=== PATIENT | female | born 1940 | race Caucasian/White ===

== ENCOUNTER 2017-07-10 12:48 | Observation (INO) | payer MEDICARE ==
[~2017-07-10] VITALS: Ht 162.6 cm; Wt 40.4 kg
[2017-07-10] MEDS ORDERED: NS IV 1000 ML 1,000 ML IV SCH (12:51)
[2017-07-10] MEDS ORDERED: ONDANSETRON 4 MG/2 ML (SDV) Z0FRAN IVP PRN (13:00)
[2017-07-10] MEDS ORDERED: ACETAMINOPHEN 500 MG TAB (TYLENOL) PO PRN (13:00)
[2017-07-10] MEDS ORDERED: ALPRAZolam 0.25 MG (XANAX) TAB PO PRN (13:00)
[2017-07-10] MEDS ORDERED: IBUPROFEN TABLET 200 MG TAB PO PRN (13:00)
[2017-07-10] MEDS ORDERED: RT-ALBUTEROL SULF 2.5 MG/3 ML PRE-MIX VIAL INH NR (13:00)
[2017-07-10] MEDS ORDERED: fentaNYL INJECTION 100 MCG/2 ML AMP IVP PRN (13:00)
--- OUTSIDE RECORDS SUMMARY | 2017-07-10 13:23 | XMS REPORT | Clinical Summary ---
Author Author Admin, SCOUT [facility] Address Unknown Phone Unavailable Allergies, Adverse Reactions, Alerts Allergy Name Reaction Description Start Date Severity Status Provider No Known Allergies Shahida Mares LPN Conditions or Problems Problem Name Problem Code Onset Date Status Entry Date Provider Comment Standard Description Annotate MUSCLE PAIN 729.1 Active Sherry Haq MD PhD Myalgia and myositis, unspecified Preop exam V72.84 Active Shahida Mares LPN Preoperative examination, unspecified History of myocardial infarction V12.59 Active Bridgett Guadarrama APRN Other personal history of diseases of circulatory system COPD, NOS 496 Active Bridgett Guadarrama APRN Chronic airway obstruction, not elsewhere classified Zoster conjunctivitis Active Bridgett Guadarrama APRN 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 Bridgett Guadarrama APRN Herpes zoster with other nervous system complications Other atopic dermatitis Active Bridgett Guadarrama APRN Localized swelling on foot, right 782.2 Active Akshat Nava MD Localized superficial swelling, mass, or lump Medication List Medication Instructions Start Date Stop Date Generic Name [facility] Status Provider Patient Instruction DESONIDE 0.05 % EXT LOTN one application to forehead two times daily DESONIDE 31150949625 Active Akshat Nava MD Active CALCIUM HIGH POTENCY/VITAMIN D 600-200 MG-UNIT TABS 2 daily CALCIUM CARBONATE-VITAMIN D 92079899996 No Longer Active Bridgett Guadarrama APRN Active CYCLOBENZAPRINE HCL 10 MG TABS 1/2 - 1 tablet by mouth three times daily as needed for muscle spasm/pain CYCLOBENZAPRINE HCL 36568821360 No Longer Active Bridgett Guadarrama APRN Active CYCLOBENZAPRINE HCL 10 MG TABS 1/2 - 1 tablet by mouth three times daily as needed for muscle spasm/pain CYCLOBENZAPRINE HCL 10 MG TABS 917670 CYCLOBENZAPRINE HCL Inactive CALCIUM HIGH POTENCY/VITAMIN D 600-200 MG-UNIT TABS 2 daily CALCIUM HIGH POTENCY/VITAMIN D 600-200 MG-UNIT TABS 993727 CALCIUM CARBONATE- VITAMIN D Inactive Advance Directives Directive Description Start Date PERMISSION TO SHARE Vital Signs Date Name Value Unit Range Description blood pressure, diastolic 61 mm[Hg] BP shahid blood pressure, systolic 167 mm[Hg] BP sys pulse rate E&M 64 /min Heart rate temperature E&M 97.4 [degF] Body temperature weight E&M 86.5 [lb_av] Weight Measured blood pressure, diastolic 65 mm[Hg] BP shahid blood pressure, systolic 139 mm[Hg] BP sys pulse rate E&M 89 /min Heart rate temperature E&M 97.5 [degF] Body temperature weight E&M 88.5 [lb_av] Weight Measured Encounters Code Encounter Date Provider Facility CPT-25326 Level 3 Est. Patient 13:54:25 CDT Akshat Nava MD [facility] CPT-54383 Level 4 New Patient 15:40:56 CDT Bridgett Guadarrama APRN [facility] CPT-06135 Level 2 New Patient 22:03:35 STREAMING MEDIA SPECIALIST Sherry Haq MD PhD [facility] -[facility] Procedures Code Procedure Name Date Entry Date Standard Description CPT-14890 EKG Trac and Interp - XRAY USE ONLY 12:44:15 CDT 08/07 CPT-83488 Chest 2V Frontal and Lat - XRAY USE ONLY 12:44:15 CDT
--- OUTSIDE RECORDS SUMMARY | 2017-07-10 13:23 | XMS REPORT | Clinical Summary ---
Author Author Admin, SCOUT Organization [facility] Address Unknown Phone Unavailable Allergies, Adverse Reactions, Alerts Allergy Name Reaction Description Start Date Severity Status Provider Allergies Unknown Conditions or Problems Problem Name Problem Code Onset Date Status Entry Date Provider Comment Standard Description Annotate MUSCLE PAIN 729.1 Active Sherry Haq MD PhD Myalgia and myositis, unspecified Preop exam V72.84 Active Shahida Mares LPN Preoperative examination, unspecified Medication List Medication Instructions Start Date Stop Date Generic Name [facility] Status Provider Patient Instruction CYCLOBENZAPRINE HCL 10 MG TABS 1/2 - 1 tablet by mouth three times daily as needed for muscle spasm/pain CYCLOBENZAPRINE HCL 60393178837 Active Sherry Haq MD PhD Active CALCIUM HIGH POTENCY/VITAMIN D 600-200 MG-UNIT TABS 2 daily CALCIUM CARBONATE-VITAMIN D 35273371849 Active Sherry Haq MD PhD Active Advance Directives Directive Description Start Date PERMISSION TO SHARE Encounters Code Encounter Date Provider Facility [facility]-03086 Level 2 New Patient 22:03:35 MEDICAL TRANSLATOR Sherry Haq MD PhD [facility] Procedures Code Procedure Name Date Entry Date Standard Description CPT-47710 EKG Trac and Interp - XRAY USE ONLY 12:44:15 CDT 08/07 CPT-92635 Chest 2V Frontal and Lat - XRAY USE ONLY 12:44:15 CDT
--- OUTSIDE RECORDS SUMMARY | 2017-07-10 13:23 | XMS REPORT | Clinical Summary ---
Author Author Admin, SCOUT [facility] Address Unknown Phone Unavailable Allergies, Adverse Reactions, [...] Instructions Start Date Stop Date Generic Name [facility] Status Provider Patient Instruction DESONIDE 0.05 % EXT LOTN one application to forehead two times daily DESONIDE 92986734663 Active Akshat Nava MD Active CALCIUM HIGH POTENCY/VITAMIN D 600-200 MG-UNIT TABS 2 daily CALCIUM CARBONATE-VITAMIN D 10684943528 No Longer Active Bridgett Guadarrama APRN Active CYCLOBENZAPRINE HCL 10 MG TABS 1/2 - 1 tablet by mouth three times daily as needed for muscle spasm/pain CYCLOBENZAPRINE HCL 37836791476 No Longer Active Bridgett Guadarrama APRN Active CYCLOBENZAPRINE HCL 10 MG TABS 1/2 - 1 tablet by mouth three times daily as needed for muscle spasm/pain CYCLOBENZAPRINE HCL 10 MG TABS 133979 CYCLOBENZAPRINE HCL Inactive CALCIUM HIGH POTENCY/VITAMIN D 600-200 MG-UNIT TABS 2 daily CALCIUM HIGH POTENCY/VITAMIN D 600-200 MG-UNIT TABS 144937 CALCIUM CARBONATE- VITAMIN D Inactive Advance Directives [...] Measured Encounters Code Encounter Date Provider Facility CPT-92490 Level 3 Est. Patient 13:54:25 CDT Akshat Nava MD [facility] CPT-47211 Level 4 New Patient 15:40:56 CDT Bridgett Guadarrama APRN [facility] CPT-03296 Level 2 New Patient 22:03:35 SEAM PRESS OPERATOR Sherry Haq MD PhD [facility] -[facility] Procedures Code Procedure Name Date Entry Date Standard Description CPT-14175 EKG Trac and Interp - XRAY USE ONLY 12:44:15 CDT 08/07 CPT-91090 Chest 2V Frontal and Lat - XRAY USE ONLY 12:44:15 CDT
--- OUTSIDE RECORDS SUMMARY | 2017-07-10 13:23 | XMS REPORT | Clinical Summary ---
Author Author Admin, SCOUT Organization [facility] Address Unknown Phone Unavailable Allergies, Adverse Reactions, [...] Generic Name [facility] Status Provider Patient Instruction CYCLOBENZAPRINE HCL 10 MG TABS 1/2 - 1 tablet by mouth three times daily as needed for muscle spasm/pain CYCLOBENZAPRINE HCL 60447978045 Active Sherry Haq MD PhD Active CALCIUM HIGH POTENCY/VITAMIN D 600-200 MG-UNIT TABS 2 daily CALCIUM CARBONATE-VITAMIN D 16534243088 Active Sherry Haq MD PhD Active Advance Directives Directive Description Start Date PERMISSION TO SHARE Encounters Code Encounter Date Provider Facility [facility]-05210 Level 2 New Patient 22:03:35 GROUNDWATER PROGRAMS DIRECTOR Sherry Haq MD PhD [facility] Procedures Code Procedure Name Date Entry Date Standard Description CPT-63745 EKG Trac and Interp - XRAY USE ONLY 12:44:15 CDT 08/07 CPT-45749 Chest 2V Frontal and Lat - XRAY USE ONLY 12:44:15 CDT
--- OUTSIDE RECORDS SUMMARY | 2017-07-10 13:23 | XMS REPORT | Clinical Summary ---
Author Author Admin, SCOUT Organization [facility] Address Unknown Phone Unavailable Allergies, [...] Instructions Start Date Stop Date Generic Name [facility] Status Provider Patient Instruction CYCLOBENZAPRINE HCL 10 MG TABS 1/2 - 1 tablet by mouth three times daily as needed for muscle spasm/pain CYCLOBENZAPRINE HCL 30711816638 Active Sherry Haq MD PhD Active CALCIUM HIGH POTENCY/VITAMIN D 600-200 MG-UNIT TABS 2 daily CALCIUM CARBONATE-VITAMIN D 36579129445 Active Sherry Haq MD PhD Active Advance Directives Directive Description Start Date PERMISSION TO SHARE Encounters Code Encounter Date Provider Facility [facility]-13453 Level 2 New Patient 22:03:35 FINAL INSPECTOR MOVEMENT ASSEMBLY Sherry Haq MD PhD [facility] Procedures Code Procedure Name Date Entry Date Standard Description CPT-76881 EKG Trac and Interp - XRAY USE ONLY 12:44:15 CDT 08/07 CPT-16720 Chest 2V Frontal and Lat - XRAY USE ONLY 12:44:15 CDT
--- OUTSIDE RECORDS SUMMARY | 2017-07-10 13:23 | XMS REPORT | Clinical Summary ---
Author Author Admin, SCOUT [facility] Address Unknown Phone Unavailable Allergies, Adverse Reactions, Alerts Allergy Name Reaction Description Start Date Severity Status Provider No Known Allergies Stacialison Urias RMAlison Conditions or Problems Problem Name Problem Code Onset Date Status Entry Date Provider Comment Standard Description Annotate MUSCLE PAIN 729.1 Active Sherry Haq MD PhD Myalgia and myositis, unspecified Preop exam V72.84 Active Shahida Mares TACTICAL AIR CONTROL PARTY MANAGER Preoperative examination, unspecified History of myocardial infarction V12.59 Active Bridgett Guadarrama APRN Other personal history of diseases of circulatory system COPD, NOS 496 Active Bridgett Guadarrama APRN Chronic airway obstruction, not elsewhere classified Zoster conjunctivitis Active Bridgett Guadarrama APRN 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 Bridgett Guadarrama APRN Herpes zoster with other nervous system complications Other atopic dermatitis Active Bridgett Guadarrama APRN Medication List Medication Instructions Start Date Stop Date Generic Name [facility] Status Provider Patient Instruction DESONIDE 0.05 % EXT LOTN one application to forehead two times daily DESONIDE 41354042580 Active Bridgett Guadarrama APRN Active CALCIUM HIGH POTENCY/VITAMIN D 600-200 MG-UNIT TABS 2 daily CALCIUM CARBONATE-VITAMIN D 79546017693 No Longer Active Bridgett Guadarrama APRN Active CYCLOBENZAPRINE HCL 10 MG TABS 1/2 - 1 tablet by mouth three times daily as needed for muscle spasm/pain CYCLOBENZAPRINE HCL 32709965887 No Longer Active Bridgett Guadarrama APRN Active CYCLOBENZAPRINE HCL 10 MG TABS 1/2 - 1 tablet by mouth three times daily as needed for muscle spasm/pain CYCLOBENZAPRINE HCL 10 MG TABS 044593 CYCLOBENZAPRINE HCL Inactive CALCIUM HIGH POTENCY/VITAMIN D 600-200 MG-UNIT TABS 2 daily CALCIUM HIGH POTENCY/VITAMIN D 600-200 MG-UNIT TABS 540059 CALCIUM CARBONATE- VITAMIN D Inactive Advance Directives Directive Description Start Date PERMISSION TO SHARE Vital Signs Date Name Value Unit Range Description blood pressure, diastolic - 8462-4 65 mm[Hg] BP shahid blood pressure, systolic - 8480-6 139 mm[Hg] BP sys pulse rate E&M - 8867-4 89 /min Heart rate temperature E&M 97.5 [degF] Body temperature weight E&M - 3141-9 88.5 [lb_av] Weight Measured Encounters Code Encounter Date Provider Facility CPT-49134 Level 4 New Patient 15:40:56 CDT Bridgett Guadarrama APRN [facility] CPT-65866 Level 2 New Patient 22:03:35 LAND RECLAMATION SPECIALIST Sherry Haq MD PhD [facility] -[facility] Procedures Code Procedure Name Date Entry Date Standard Description CPT-84316 EKG Trac and Interp - XRAY USE ONLY 12:44:15 CDT 08/07 CPT-02926 Chest 2V Frontal and Lat - XRAY USE ONLY 12:44:15 CDT
--- OUTSIDE RECORDS SUMMARY | 2017-07-10 13:23 | XMS REPORT | Clinical Summary ---
Author Author Admin, [facility] Organization [facility] Address Unknown Phone Unavailable Allergies, [...] Start Date Stop Date Generic Name [facility] Status Provider Patient Instruction CYCLOBENZAPRINE HCL 10 MG TABS 1/2 - 1 tablet by mouth three times daily as needed for muscle spasm/pain CYCLOBENZAPRINE HCL 04594683612 Active Sherry Haq MD PhD Active CALCIUM HIGH POTENCY/VITAMIN D 600-200 MG-UNIT TABS 2 daily CALCIUM CARBONATE-VITAMIN D 31630697390 Active Sherry Haq MD PhD Active Advance Directives Directive Description Start Date PERMISSION TO SHARE Encounters Code Encounter Date Provider Facility CPT-35767 Level 2 New Patient 22:03:35 INTERIOR DESIGN INSTRUCTOR Sherry Haq MD PhD [facility]
--- OUTSIDE RECORDS SUMMARY | 2017-07-10 13:23 | XMS REPORT | Clinical Summary ---
Author Author Admin, SCOUT [facility] Address Unknown Phone Unavailable Allergies, Adverse Reactions, Alerts Allergy Name Reaction Description Start Date Severity Status Provider No Known Allergies Staci DOVER Conditions or Problems Problem Name Problem Code Onset Date Status Entry Date Provider Comment Standard Description Annotate MUSCLE PAIN 729.1 Active Sherry Haq MD PhD Myalgia and myositis, unspecified Preop exam V72.84 Active Shahida Mares LPTA Preoperative examination, unspecified History of myocardial infarction [...] Instructions Start Date Stop Date Generic Name [facility] Status Provider Patient Instruction DESONIDE 0.05 % EXT LOTN one application to forehead two times daily DESONIDE 14864844703 Active Bridgett Guadarrama APRN Active CALCIUM HIGH POTENCY/VITAMIN D 600-200 MG-UNIT TABS 2 daily CALCIUM CARBONATE-VITAMIN D 90225294933 No Longer Active Bridgett Guadarrama APRN Active CYCLOBENZAPRINE HCL 10 MG TABS 1/2 - 1 tablet by mouth three times daily as needed for muscle spasm/pain CYCLOBENZAPRINE HCL 37307036400 No Longer Active Bridgett Guadarrama APRN Active CYCLOBENZAPRINE HCL 10 MG TABS 1/2 - 1 tablet by mouth three times daily as needed for muscle spasm/pain CYCLOBENZAPRINE HCL 10 MG TABS 744739 CYCLOBENZAPRINE HCL Inactive CALCIUM HIGH POTENCY/VITAMIN D 600-200 MG-UNIT TABS 2 daily CALCIUM HIGH POTENCY/VITAMIN D 600-200 MG-UNIT TABS 963172 CALCIUM CARBONATE- VITAMIN D Inactive Advance Directives [...] Measured Encounters Code Encounter Date Provider Facility CPT-47261 Level 4 New Patient 15:40:56 CDT Bridgett Guadarrama APRN [facility] CPT-47908 Level 2 New Patient 22:03:35 WELLNESS EDUCATOR Sherry Haq MD PhD [facility] -[facility] Procedures Code Procedure Name Date Entry Date Standard Description CPT-56418 EKG Trac and Interp - XRAY USE ONLY 12:44:15 CDT 08/07 CPT-11197 Chest 2V Frontal and Lat - XRAY USE ONLY 12:44:15 CDT
--- OUTSIDE RECORDS SUMMARY | 2017-07-10 13:24 | XMS REPORT | Clinical Summary ---
Author Author Admin, SCOUT [facility] Address Unknown Phone Unavailable Allergies, Adverse Reactions, Alerts Allergy Name Reaction Description Start Date Severity Status Provider No Known Allergies Staci DOVER Conditions or Problems Problem Name Problem Code Onset Date Status Entry Date Provider Comment Standard Description Annotate MUSCLE PAIN 729.1 Active Sherry Haq MD PhD Myalgia and myositis, unspecified Preop exam V72.84 Active Shahida Mares MEDICAL CLAIMS EXAMINER Preoperative examination, unspecified History of myocardial infarction [...] Instructions Start Date Stop Date Generic Name [facility] Status Provider Patient Instruction DESONIDE 0.05 % EXT LOTN one application to forehead two times daily DESONIDE 45763001893 Active Bridgett Guadarrama APRN Active CALCIUM HIGH POTENCY/VITAMIN D 600-200 MG-UNIT TABS 2 daily CALCIUM CARBONATE-VITAMIN D 54578569987 No Longer Active Bridgett Guadarrama APRN Active CYCLOBENZAPRINE HCL 10 MG TABS 1/2 - 1 tablet by mouth three times daily as needed for muscle spasm/pain CYCLOBENZAPRINE HCL 04329662862 No Longer Active Bridgett Guadarrama APRN Active CYCLOBENZAPRINE HCL 10 MG TABS 1/2 - 1 tablet by mouth three times daily as needed for muscle spasm/pain CYCLOBENZAPRINE HCL 10 MG TABS 608718 CYCLOBENZAPRINE HCL Inactive CALCIUM HIGH POTENCY/VITAMIN D 600-200 MG-UNIT TABS 2 daily CALCIUM HIGH POTENCY/VITAMIN D 600-200 MG-UNIT TABS 258695 CALCIUM CARBONATE- VITAMIN D Inactive Advance Directives [...] Measured Encounters Code Encounter Date Provider Facility CPT-87236 Level 4 New Patient 15:40:56 CDT Bridgett Guadarrama APRN [facility] CPT-91584 Level 2 New Patient 22:03:35 COASTAL TUG MATE Sherry Haq MD PhD [facility] -[facility] Procedures Code Procedure Name Date Entry Date Standard Description CPT-45058 EKG Trac and Interp - XRAY USE ONLY 12:44:15 CDT 08/07 CPT-97634 Chest 2V Frontal and Lat - XRAY USE ONLY 12:44:15 CDT
--- OUTSIDE RECORDS SUMMARY | 2017-07-10 13:24 | XMS REPORT | Clinical Summary ---
Author Author Admin, SCOUT Organization [facility] Address Unknown Phone Unavailable Allergies, Adverse [...] Instructions Start Date Stop Date Generic Name [facility] Status Provider Patient Instruction DESONIDE 0.05 % EXT LOTN one application to forehead two times daily DESONIDE 20488220447 Active Bridgett Guadarrama APRN Active CYCLOBENZAPRINE HCL 10 MG TABS 1/2 - 1 tablet by mouth three times daily as needed for muscle spasm/pain CYCLOBENZAPRINE HCL 62584692043 Active Sherry Haq MD PhD Active CALCIUM HIGH POTENCY/VITAMIN D 600-200 MG-UNIT TABS 2 daily CALCIUM CARBONATE-VITAMIN D 21209312233 Active Sherry Haq MD PhD Active Advance Directives Directive Description Start Date PERMISSION TO SHARE Encounters Code Encounter Date Provider Facility CPT-60320 Level 4 New Patient 15:40:56 CDT Bridgett Guadarrama APRN [facility] CPT-52905 Level 2 New Patient 22:03:35 OFFICE ANALYST Sherry Haq MD PhD [facility] Procedures Code Procedure Name Date Entry Date Standard Description CPT-69932 EKG Trac and Interp - XRAY USE ONLY 12:44:15 CDT 08/07 CPT-80223 Chest 2V Frontal and Lat - XRAY USE ONLY 12:44:15 CDT
--- OUTSIDE RECORDS SUMMARY | 2017-07-10 13:24 | XMS REPORT | Clinical Summary ---
Author Author Admin, SCOUT Collins [facility] Address Unknown Phone Unavailable Allergies, Adverse Reactions, Alerts Allergy Name Reaction Description Start Date Severity Status Provider No Known Allergies Staci DOVER Conditions or Problems Problem Name Problem Code Onset Date Status Entry Date Provider Comment Standard Description Annotate MUSCLE PAIN 729.1 Active Sherry Haq MD PhD Myalgia and myositis, unspecified Preop exam V72.84 Active Shahida Mares PEDIATRIC PHYSICIAN Preoperative examination, unspecified History of myocardial infarction [...] Instructions Start Date Stop Date Generic Name [facility] Status Provider Patient Instruction DESONIDE 0.05 % EXT LOTN one application to forehead two times daily DESONIDE 95656193910 Active Bridgett Guadarrama APRN Active CALCIUM HIGH POTENCY/VITAMIN D 600-200 MG-UNIT TABS 2 daily CALCIUM CARBONATE-VITAMIN D 62020296934 No Longer Active Bridgett Guadarrama APRN Active CYCLOBENZAPRINE HCL 10 MG TABS 1/2 - 1 tablet by mouth three times daily as needed for muscle spasm/pain CYCLOBENZAPRINE HCL 45825392617 No Longer Active Bridgett Guadarrama APRN Active CYCLOBENZAPRINE HCL 10 MG TABS 1/2 - 1 tablet by mouth three times daily as needed for muscle spasm/pain CYCLOBENZAPRINE HCL 10 MG TABS 923059 CYCLOBENZAPRINE HCL Inactive CALCIUM HIGH POTENCY/VITAMIN D 600-200 MG-UNIT TABS 2 daily CALCIUM HIGH POTENCY/VITAMIN D 600-200 MG-UNIT TABS 657722 CALCIUM CARBONATE- VITAMIN D Inactive Advance Directives [...] Measured Encounters Code Encounter Date Provider Facility CPT-42221 Level 4 New Patient 15:40:56 CDT Bridgett Guadarrama APRN [facility] CPT-86122 Level 2 New Patient 22:03:35 A&P MECHANIC Sherry Haq MD PhD [facility] -[facility] Procedures Code Procedure Name Date Entry Date Standard Description CPT-49265 EKG Trac and Interp - XRAY USE ONLY 12:44:15 CDT 08/07 CPT-85165 Chest 2V Frontal and Lat - XRAY USE ONLY 12:44:15 CDT
--- OUTSIDE RECORDS SUMMARY | 2017-07-10 13:24 | XMS REPORT | Clinical Summary ---
Author Author Admin, SCOUT Collins [facility] Address Unknown Phone Unavailable Allergies, Adverse [...] Instructions Start Date Stop Date Generic Name [facility] Status Provider Patient Instruction DESONIDE 0.05 % EXT LOTN one application to forehead two times daily DESONIDE 23501098766 Active Akshat Nava MD Active CALCIUM HIGH POTENCY/VITAMIN D 600-200 MG-UNIT TABS 2 daily CALCIUM CARBONATE-VITAMIN D 41572750801 No Longer Active Bridgett Guadarrama APRN Active CYCLOBENZAPRINE HCL 10 MG TABS 1/2 - 1 tablet by mouth three times daily as needed for muscle spasm/pain CYCLOBENZAPRINE HCL 43416857538 No Longer Active Bridgett Guadarrama APRN Active CYCLOBENZAPRINE HCL 10 MG TABS 1/2 - 1 tablet by mouth three times daily as needed for muscle spasm/pain CYCLOBENZAPRINE HCL 10 MG TABS 678599 CYCLOBENZAPRINE HCL Inactive CALCIUM HIGH POTENCY/VITAMIN D 600-200 MG-UNIT TABS 2 daily CALCIUM HIGH POTENCY/VITAMIN D 600-200 MG-UNIT TABS 004887 CALCIUM CARBONATE- VITAMIN D Inactive Advance Directives [...] Measured Encounters Code Encounter Date Provider Facility CPT-42269 Level 3 Est. Patient 13:54:25 CDT Akshat Nava MD [facility] CPT-62298 Level 4 New Patient 15:40:56 CDT Bridgett Guadarrama APRN [facility] CPT-14482 Level 2 New Patient 22:03:35 DISTRIBUTION CENTER SUPERVISOR Sherry Haq MD PhD [facility] -[facility] Procedures Code Procedure Name Date Entry Date Standard Description CPT-[id number] EKG Trac and Interp - XRAY USE ONLY 12:44:15 CDT 08/07 CPT-48102 Chest 2V Frontal and Lat - XRAY USE ONLY 12:44:15 CDT
--- OUTSIDE RECORDS SUMMARY | 2017-07-10 13:24 | XMS REPORT | Clinical Summary ---
Author Author Admin, SCOUT Collins [facility] Address Unknown Phone Unavailable Allergies, Adverse Reactions, [...] Status Provider Patient Instruction DESONIDE 0.05 % EXTERNAL LOTION one application to forehead two times daily DESONIDE 19105292731 Active Akshat Nava MD Active CALCIUM HIGH POTENCY/VITAMIN D 600-200 MG-UNIT ORAL TABLET 2 daily CALCIUM CARBONATE-VITAMIN D 72163117889 No Longer Active Bridgett Guadarrama APRN Active CYCLOBENZAPRINE HCL 10 MG ORAL TABLET 1/2 - 1 tablet by mouth three times daily as needed for muscle spasm/pain CYCLOBENZAPRINE HCL 73034572857 No Longer Active Bridgett Guadarrama APRN Active CYCLOBENZAPRINE HCL 10 MG ORAL TABLET 1/2 - 1 tablet by mouth three times daily as needed for muscle spasm/pain CYCLOBENZAPRINE HCL 10 MG ORAL TABLET 966873 CYCLOBENZAPRINE HCL Inactive CALCIUM HIGH POTENCY/VITAMIN D 600-200 MG-UNIT ORAL TABLET 2 daily CALCIUM HIGH POTENCY/VITAMIN D 600-200 MG-UNIT ORAL TABLET 261876 CALCIUM CARBONATE-VITAMIN D Inactive Advance Directives Directive Description Start [...] Measured Encounters Code Encounter Date Provider Facility CPT-01958 Level 3 Est. Patient 13:54:25 CDT Akshat Nava MD [facility] CPT-66565 Level 4 New Patient 15:40:56 CDT Bridgett Guadarrama APRN [facility] CPT-07564 Level 2 New Patient 22:03:35 MEMORY CARE PROGRAM DIRECTOR Sherry Haq MD PhD [facility] -[facility] Procedures Code Procedure Name Date Entry Date Standard Description CPT-07707 EKG Trac and Interp - XRAY USE ONLY 12:44:15 CDT 08/07 CPT-45958 Chest 2V Frontal and Lat - XRAY USE ONLY 12:44:15 CDT
--- OUTSIDE RECORDS SUMMARY | 2017-07-10 13:24 | XMS REPORT | Clinical Summary ---
Author Author Admin, SCOUT Collins [facility] Address Unknown Phone Unavailable Allergies, Adverse Reactions, [...] nervous system complications Other atopic dermatitis Active Brigdett Guadarrama APRN Localized swelling on foot, right 782.2 Active Akshat Nava MD Localized superficial swelling, mass, or lump Medication List Medication Instructions Start Date Stop Date Generic Name [facility] Status Provider Patient Instruction DESONIDE 0.05 % EXTERNAL LOTION one application to forehead two times daily DESONIDE 90032242030 Active Akshat Nava MD Active CALCIUM HIGH POTENCY/VITAMIN D 600-200 MG-UNIT ORAL TABLET 2 daily CALCIUM CARBONATE-VITAMIN D 44045315347 No Longer Active Bridgett Guadarrama APRN Active CYCLOBENZAPRINE HCL 10 MG ORAL TABLET 1/2 - 1 tablet by mouth three times daily as needed for muscle spasm/pain CYCLOBENZAPRINE HCL 52769696979 No Longer Active Bridgett Guadarrama APRN Active CYCLOBENZAPRINE HCL 10 MG ORAL TABLET 1/2 - 1 tablet by mouth three times daily as needed for muscle spasm/pain CYCLOBENZAPRINE HCL 10 MG ORAL TABLET 312679 CYCLOBENZAPRINE HCL Inactive CALCIUM HIGH POTENCY/VITAMIN D 600-200 MG-UNIT ORAL TABLET 2 daily CALCIUM HIGH POTENCY/VITAMIN D 600-200 MG-UNIT ORAL TABLET 284057 CALCIUM CARBONATE-VITAMIN D Inactive Advance Directives Directive [...] Measured Encounters Code Encounter Date Provider Facility CPT-33496 Level 3 Est. Patient 13:54:25 CDT Akshat Nava MD [facility] CPT-63411 Level 4 New Patient 15:40:56 CDT Bridgett Guadarrama APRN [facility] CPT-95063 Level 2 New Patient 22:03:35 PIE TOPPER Sherry Haq MD PhD [facility] -[facility] Procedures Code Procedure Name Date Entry Date Standard Description CPT-53453 EKG Trac and Interp - XRAY USE ONLY 12:44:15 CDT 08/07 CPT-97463 Chest 2V Frontal and Lat - XRAY USE ONLY 12:44:15 CDT
--- OUTSIDE RECORDS SUMMARY | 2017-07-10 13:24 | XMS REPORT | Clinical Summary ---
Author Author Admin, SCOUT Collins [facility] Address Unknown Phone Unavailable Allergies, [...] Start Date Stop Date Generic Name [facility] Status Provider Patient Instruction DESONIDE 0.05 % EXT LOTN one application to forehead two times daily DESONIDE 44191457438 Active Akshat Nava MD Active CALCIUM HIGH POTENCY/VITAMIN D 600-200 MG-UNIT TABS 2 daily CALCIUM CARBONATE-VITAMIN D 16454202901 No Longer Active Bridgett Guadarrama APRN Active CYCLOBENZAPRINE HCL 10 MG TABS 1/2 - 1 tablet by mouth three times daily as needed for muscle spasm/pain CYCLOBENZAPRINE HCL 46270665667 No Longer Active Bridgett Guadarrama APRN Active CYCLOBENZAPRINE HCL 10 MG TABS 1/2 - 1 tablet by mouth three times daily as needed for muscle spasm/pain CYCLOBENZAPRINE HCL 10 MG TABS 563691 CYCLOBENZAPRINE HCL Inactive CALCIUM HIGH POTENCY/VITAMIN D 600-200 MG-UNIT TABS 2 daily CALCIUM HIGH POTENCY/VITAMIN D 600-200 MG-UNIT TABS 630165 CALCIUM CARBONATE- VITAMIN D Inactive Advance Directives [...] Measured Encounters Code Encounter Date Provider Facility CPT-30861 Level 3 Est. Patient 13:54:25 CDT Akshat Nava MD [facility] CPT-32721 Level 4 New Patient 15:40:56 CDT Bridgett Guadarrama APRN [facility] CPT-91504 Level 2 New Patient 22:03:35 MEDICAL OFFICE ASST Sherry Haq MD PhD [facility] -[facility] Procedures Code Procedure Name Date Entry Date Standard Description CPT-73670 EKG Trac and Interp - XRAY USE ONLY 12:44:15 CDT 08/07 CPT-68815 Chest 2V Frontal and Lat - XRAY USE ONLY 12:44:15 CDT
--- OUTSIDE RECORDS SUMMARY | 2017-07-10 13:24 | XMS REPORT | Clinical Summary ---
Author Author Admin, SCOUT Organization [facility] Address Unknown Phone Unavailable Allergies, Adverse [...] Instructions Start Date Stop Date Generic Name [facility] Status Provider Patient Instruction CYCLOBENZAPRINE HCL 10 MG TABS 1/2 - 1 tablet by mouth three times daily as needed for muscle spasm/pain CYCLOBENZAPRINE HCL 10667557135 Active Sherry Haq MD PhD Active CALCIUM HIGH POTENCY/VITAMIN D 600-200 MG-UNIT TABS 2 daily CALCIUM CARBONATE-VITAMIN D 17470570546 Active Sherry Haq MD PhD Active Advance Directives Directive Description Start Date PERMISSION TO SHARE Encounters Code Encounter Date Provider Facility [facility]-76052 Level 2 New Patient 22:03:35 CHARGE HAND Sherry Haq MD PhD [facility] Procedures Code Procedure Name Date Entry Date Standard Description CPT-18192 EKG Trac and Interp - XRAY USE ONLY 12:44:15 CDT 08/07 CPT-87180 Chest 2V Frontal and Lat - XRAY USE ONLY 12:44:15 CDT
--- OUTSIDE RECORDS SUMMARY | 2017-07-10 13:24 | XMS REPORT | Clinical Summary ---
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 PROCESSING SUPERVISOR Preoperative examination, unspecified History of myocardial infarction V12.59 Active Bridgett Guadarrama APRN Other personal history of diseases of circulatory system COPD, NOS 496 Active Bridgett Guadarrama APRN Chronic airway obstruction, not elsewhere classified Zoster conjunctivitis Active Bridgett Guadarrama APRN 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 Bridgett Guadarrama APRN Herpes zoster with other nervous system complications Other atopic dermatitis Active Bridgett Guadararma APRN Medication List Medication Instructions Start Date Stop Date Generic Name [facility] Status Provider Patient Instruction DESONIDE 0.05 % EXT LOTN one application to forehead two times daily DESONIDE 24920605191 Active Bridgett Guadarrama APRN Active CALCIUM HIGH POTENCY/VITAMIN D 600-200 MG-UNIT TABS 2 daily CALCIUM CARBONATE-VITAMIN D 41603647247 No Longer Active Bridgett Guadarrama APRN Active CYCLOBENZAPRINE HCL 10 MG TABS 1/2 - 1 tablet by mouth three times daily as needed for muscle spasm/pain CYCLOBENZAPRINE HCL 97454634938 No Longer Active Bridgett Guadarrama APRN Active CYCLOBENZAPRINE HCL 10 MG TABS 1/2 - 1 tablet by mouth three times daily as needed for muscle spasm/pain CYCLOBENZAPRINE HCL 10 MG TABS 031881 CYCLOBENZAPRINE HCL Inactive CALCIUM HIGH POTENCY/VITAMIN D 600-200 MG-UNIT TABS 2 daily CALCIUM HIGH POTENCY/VITAMIN D 600-200 MG-UNIT TABS 134495 CALCIUM CARBONATE- VITAMIN D Inactive Advance Directives [...] Measured Encounters Code Encounter Date Provider Facility CPT-71112 Level 4 New Patient 15:40:56 CDT Bridgett Guadarrama APRN [facility] CPT-61138 Level 2 New Patient 22:03:35 HUMAN RESOURCES ASSOCIATE Sherry Haq MD PhD [facility] -[facility] Procedures Code Procedure Name Date Entry Date Standard Description CPT-04110 EKG Trac and Interp - XRAY USE ONLY 12:44:15 CDT 08/07 CPT-02358 Chest 2V Frontal and Lat - XRAY USE ONLY 12:44:15 CDT
--- OUTSIDE RECORDS SUMMARY | 2017-07-10 13:25 | XMS REPORT | Clinical Summary ---
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 Preoperative examination, unspecified History of myocardial [...] Instructions Start Date Stop Date Generic Name [facility] Status Provider Patient Instruction DESONIDE 0.05 % EXT LOTN one application to forehead two times daily DESONIDE 26861102833 Active Bridgett Guadarrama APRN Active CALCIUM HIGH POTENCY/VITAMIN D 600-200 MG-UNIT TABS 2 daily CALCIUM CARBONATE-VITAMIN D 15709728197 No Longer Active Bridgett Guadarrama APRN Active CYCLOBENZAPRINE HCL 10 MG TABS 1/2 - 1 tablet by mouth three times daily as needed for muscle spasm/pain CYCLOBENZAPRINE HCL 74647932785 No Longer Active Bridgett Guadarrama APRN Active CYCLOBENZAPRINE HCL 10 MG TABS 1/2 - 1 tablet by mouth three times daily as needed for muscle spasm/pain CYCLOBENZAPRINE HCL 10 MG TABS 041372 CYCLOBENZAPRINE HCL Inactive CALCIUM HIGH POTENCY/VITAMIN D 600-200 MG-UNIT TABS 2 daily CALCIUM HIGH POTENCY/VITAMIN D 600-200 MG-UNIT TABS 811686 CALCIUM CARBONATE- VITAMIN D Inactive Advance Directives [...] Measured Encounters Code Encounter Date Provider Facility CPT-27540 Level 4 New Patient 15:40:56 CDT Bridgett Guadarrama APRN [facility] CPT-48574 Level 2 New Patient 22:03:35 THERMOSTAT REPAIRER Sherry Haq MD PhD [facility] -[facility] Procedures Code Procedure Name Date Entry Date Standard Description CPT-66328 EKG Trac and Interp - XRAY USE ONLY 12:44:15 CDT 08/07 CPT-00053 Chest 2V Frontal and Lat - XRAY USE ONLY 12:44:15 CDT
--- OUTSIDE RECORDS SUMMARY | 2017-07-10 13:25 | XMS REPORT | Continuity of Care Document ---
Author Author [facility] Organization [facility] Address Unknown Phone Unavailable Allergies There is no data. Medications There is no data. Problems Date Dx Coded Attending Type Code Diagnosis Diagnosed By 03/11/2017 Severino MONROE PhD, Sherry R22.41 Localized swelling on foot, right Procedures There is no data. Results There is no data. Encounters ACCT No. Visit Date/Time Discharge Status Pt. Type Provider Facility Loc./Unit Complaint [id number] 03/11/2017 13:06:59 [place] Unknown Severino MONROE PhD, Sherry
--- OUTSIDE RECORDS SUMMARY | 2017-07-10 13:25 | XMS REPORT | Clinical Summary ---
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 Preoperative examination, unspecified History of myocardial [...] Instructions Start Date Stop Date Generic Name [facility] Status Provider Patient Instruction DESONIDE 0.05 % EXT LOTN one application to forehead two times daily DESONIDE 89302074963 Active Bridgett Guadarrama APRN Active CALCIUM HIGH POTENCY/VITAMIN D 600-200 MG-UNIT TABS 2 daily CALCIUM CARBONATE-VITAMIN D 48697702636 No Longer Active Bridgett Guadarrama APRN Active CYCLOBENZAPRINE HCL 10 MG TABS 1/2 - 1 tablet by mouth three times daily as needed for muscle spasm/pain CYCLOBENZAPRINE HCL 65582585302 No Longer Active Bridgett Guadarrama APRN Active CYCLOBENZAPRINE HCL 10 MG TABS 1/2 - 1 tablet by mouth three times daily as needed for muscle spasm/pain CYCLOBENZAPRINE HCL 10 MG TABS 383293 CYCLOBENZAPRINE HCL Inactive CALCIUM HIGH POTENCY/VITAMIN D 600-200 MG-UNIT TABS 2 daily CALCIUM HIGH POTENCY/VITAMIN D 600-200 MG-UNIT TABS 891260 CALCIUM CARBONATE- VITAMIN D Inactive Advance Directives [...] Measured Encounters Code Encounter Date Provider Facility CPT-19178 Level 4 New Patient 15:40:56 CDT Bridgett Guadarrama APRN [facility] CPT-98140 Level 2 New Patient 22:03:35 MINE CAPTAIN Sherry Haq MD PhD [facility] -[facility] Procedures Code Procedure Name Date Entry Date Standard Description CPT-82666 EKG Trac and Interp - XRAY USE ONLY 12:44:15 CDT 08/07 CPT-70630 Chest 2V Frontal and Lat - XRAY USE ONLY 12:44:15 CDT
--- OUTSIDE RECORDS SUMMARY | 2017-07-10 13:25 | XMS REPORT | Clinical Summary ---
Author Author Admin, SCOUT Collins [facility] Address Unknown Phone Unavailable Allergies, Adverse Reactions, Alerts Allergy Name Reaction Description Start Date Severity Status Provider No Known Allergies Staci DOVER Conditions or Problems Problem Name Problem Code Onset Date Status Entry Date Provider Comment Standard Description Annotate MUSCLE PAIN 729.1 Active Sherry Haq MD PhD Myalgia and myositis, unspecified Preop exam V72.84 Active Shahida Mares DIRECTOR GLOBAL DEVELOPMENT Preoperative examination, unspecified History of myocardial infarction [...] Start Date Stop Date Generic Name [facility] Status Provider Patient Instruction DESONIDE 0.05 % EXT LOTN one application to forehead two times daily DESONIDE 93684930368 Active Bridgett Guadarrama APRN Active CALCIUM HIGH POTENCY/VITAMIN D 600-200 MG-UNIT TABS 2 daily CALCIUM CARBONATE-VITAMIN D 41394953695 No Longer Active Bridgett Guadarrama APRN Active CYCLOBENZAPRINE HCL 10 MG TABS 1/2 - 1 tablet by mouth three times daily as needed for muscle spasm/pain CYCLOBENZAPRINE HCL 69253281990 No Longer Active Bridgett Guadarrama APRN Active CYCLOBENZAPRINE HCL 10 MG TABS 1/2 - 1 tablet by mouth three times daily as needed for muscle spasm/pain CYCLOBENZAPRINE HCL 10 MG TABS 063224 CYCLOBENZAPRINE HCL Inactive CALCIUM HIGH POTENCY/VITAMIN D 600-200 MG-UNIT TABS 2 daily CALCIUM HIGH POTENCY/VITAMIN D 600-200 MG-UNIT TABS 813635 CALCIUM CARBONATE- VITAMIN D Inactive Advance Directives [...] Measured Encounters Code Encounter Date Provider Facility CPT-79391 Level 4 New Patient 15:40:56 CDT Bridgett Guadarrama APRN [facility] CPT-09197 Level 2 New Patient 22:03:35 HEALTH INSURANCE ASSESSOR Sherry Haq MD PhD [facility] -[facility] Procedures Code Procedure Name Date Entry Date Standard Description CPT-68798 EKG Trac and Interp - XRAY USE ONLY 12:44:15 CDT 08/07 CPT-37630 Chest 2V Frontal and Lat - XRAY USE ONLY 12:44:15 CDT
[2017-07-10] MEDS ORDERED: AZITHROMYCIN INJECTION 500 MG in NS (IVPB) 250 ML IV SCH (13:30)
[2017-07-10 13:52] LABS: BASOPHILS % (AUTO) 0 % (0-10); EOSINOPHILS % (AUTO) 1 % (0-10); HEMATOCRIT 42 % (35-52); HEMOGLOBIN 13.9 G/DL (11.5-16.0); LYMPHOCYTES # (AUTO) 0.4 X 10^3 (1.0-4.0); LYMPHOCYTES % (AUTO) 8 % (12-44); MEAN CORPUSCULAR HEMOGLOBIN 32 PG (25-34); MEAN CORPUSCULAR HGB CONC 33 G/DL (32-36); MEAN CORPUSCULAR VOLUME 96 FL (80-99); MONOCYTES # (AUTO) 0.5 X 10^3 (0.0-1.0); MONOCYTES % (AUTO) 10 % (0-12); NEUTROPHILS # (AUTO) 4.1 X 10^3 (1.8-7.8); NEUTROPHILS % (AUTO) 81 % (42-75); PLATELET COUNT 235 10^3/uL (130-400); RED BLOOD COUNT 4.35 10^6/uL (4.35-5.85); RED CELL DISTRIBUTION WIDTH 13.6 % (10.0-14.5); WHITE BLOOD COUNT 5.1 10^3/uL (4.3-11.0)
[2017-07-10 14:03] LABS: ALANINE AMINOTRANSFERASE 14 U/L (0-55); ALBUMIN 3.3 GM/DL (3.2-4.5); ALKALINE PHOSPHATASE 56 U/L (40-136); BILIRUBIN,TOTAL 0.4 MG/DL (0.1-1.0); BUN/CREATININE RATIO 18; CALCIUM 8.2 MG/DL (8.5-10.1); CARBON DIOXIDE 29 MMOL/L (21-32); CHLORIDE 101 MMOL/L (98-107); CREATININE SERUM 0.71 MG/DL (0.60-1.30); GFR ESTIMATED > 60; GLUCOSE 88 MG/DL (70-105); POTASSIUM 3.6 MMOL/L (3.6-5.0); SODIUM 140 MMOL/L (135-145); TOTAL PROTEIN 7.1 GM/DL (6.4-8.2)
--- NOTE | 2017-07-10 14:55 | Diagnostic Imaging Report ---
INDICATION: Pneumonia. No prior examinations are available for comparison. FINDINGS: Heart size is normal. There is some venous congestion. There are patchy bilateral perihilar and basilar infiltrates right greater than left. There is no pleural effusion or pneumothorax. There is air trapping compatible with COPD. Mediastinum is unremarkable. IMPRESSION: COPD with bilateral perihilar and basilar infiltrates right greater than left suspect for superimposed pneumonia. Additionally, some central pulmonary venous congestion cannot be excluded. Dictated by: Dictated on workstation # [id number]
[2017-07-10] MEDS: RT-ALBUTEROL SULF 2.5 MG/3 ML PRE-MIX VIAL INH SCH ×2 (14:58→23:47)
[2017-07-10] MEDS ORDERED: RT-ALBUTEROL SULF 2.5 MG/3 ML PRE-MIX VIAL INH PRN (15:00)
[2017-07-10] MEDS: ENOXAPARIN 30 MG/0.3 ML (LOVENOX) SYR SC SCH (15:08)
[2017-07-10] MEDS ORDERED: ASCO-262 PO (15:26)
[2017-07-10] MEDS ORDERED: THYR120T2 PO (15:26)
[2017-07-10] MEDS ORDERED: CALC-78 PO (15:26)
[2017-07-10] MEDS: cefTRIAXone INJECTION 1,000 MG in NS (IVPB) 100 ML IV SCH (15:55)
[2017-07-10 16:08] LABS: FREE T4 (FREE THYROXINE) 0.84 NG/DL (0.70-1.48)
--- NOTE | 2017-07-10 16:18 | Consultation-Cardiology ---
HPI-Cardiology Cardiology Consultation: Date of Consultation 07/10/17 Time Seen by Provider: 15:50 Date of Admission Attending Physician Francy Olivier DO Admitting Physician Akshat Nava MD Consulting Physician KATLYN NAIK MD, MA, FACP, FACC, [facility], CCDS Physician requesting consult: Dr Olivier HPI: Chief Complaint: Reason for consultation: Shortness of breath HPI: 77 yo woman with several day of cough productive of whitish/yellowish sputum who recently lost her and who has had increasing shortness of breath. She has been admitted to Dr Olivier's service for pneumonia. Dr Olivier has asked us to see her in cardiac consult. Ms Yuan denies cp or palp or syncope or leg swelling Review of Systems-Cardiology Review of Systems Constitutional: malaise, tiredness, No weight loss, No weight gain Eyes: other (loss of vision in R eye many years ago), No vision change Ears/Nose/Throat: No ear discharge, No nasal drainage, No recent hearing loss Respiratory: As described under HPI Cardiovascular: As described under HPI Gastrointestinal: No constipation, No diarrhea, No nausea Genitourinary: No dysuria, No urine frequency changes Musculoskeletal: back pain (chronic) Skin: No rash, No ulcerations Psychiatric/Neurological: No seizure, No focal weakness, No syncope ROH-Yalibm-Uzuvzc Hx Patient Social History Alcohol Use: Denies Use Recreational Drug Use: No Smoking Status: Never a Smoker Recent Foreign Travel: No Physical Abuse Screen: No Sexual Abuse: No Immunizations Up To Date Date of Pneumonia Vaccine: Feb 09, 2017 Date of Influenza Vaccine: Feb 09, 2017 Past Medical History PMH As described under Assessment. Family Medical History Family Medical History: Father had a heart attack in his 60s Allergies and Home Medications Allergies Coded Allergies: No Allergy Information Available (Unverified , 07/10/17) Home Medications Ascorbate Calcium 500 Mg Tablet, 500 MG PO DAILY, (Reported) Calcium Carbonate/Vitamin D3 1 Each Tablet, 1 TAB PO DAILY, (Reported) Thyroid,Pork 120 Mg Tablet, 120 MG PO DAILY, (Reported) Patient Home Medication List Home Medication List Reviewed: Yes Physical Exam-Cardiology Physical Exam Vital Signs/I&O Vital Sign - Last 12Hours 07/10/17 07/10/17 07/10/17 14:00 14:48 14:59 Pulse 83 Pulse Ox 96 96 96 O2 Delivery Room Air Room Air FiO2 21 Capillary Refill : Constitutional: AAO x 3, well-developed, other (thin appearing) HEENT: other (Corneal opacity on the R; reactive pupil on the L) Neck: carotid pulses are 2 + bilaterally, with good upstrokes Respiratory: other (Fair air entry; prolonged exp phase; scattered rhonchi and wheezes) Cardiovascular: regular rate-rhythm, S1 and S2, systolic murmur (soft ANAY at card base) Gastrointestinal: No tender, soft, No guarding, No rebound, audible bowel sounds Extremities: No clubbing, No cyanosis, No significant edema Neurologic/Psychiatric: facial droop, other (R facial paralysis), power is 5/5 both on sides Skin: No rash on exposed areas, No ulcerations on exposed areas Data Review Labs Laboratory Tests 07/10/17 12:42: White Blood Count 5.1, Red Blood Count 4.35, Hemoglobin 13.9, Hematocrit 42, Mean Corpuscular Volume 96, Mean Corpuscular Hemoglobin 32, Mean Corpuscular Hemoglobin Concent 33, Red Cell Distribution Width 13.6, Platelet Count 235, Mean Platelet Volume 11.0H, Neutrophils (%) (Auto) 81H, Lymphocytes (%) (Auto) 8L, Monocytes (%) (Auto) 10, Eosinophils (%) (Auto) 1, Basophils (%) (Auto) 0, Neutrophils # (Auto) 4.1, Lymphocytes # (Auto) 0.4L, Monocytes # (Auto) 0.5, Eosinophils # (Auto) 0.0, Basophils # (Auto) 0.0, Sodium Level 140, Potassium Level 3.6, Chloride Level 101, Carbon Dioxide Level 29, Anion Gap 10, Blood Urea Nitrogen 13, Creatinine 0.71, Estimat Glomerular Filtration Rate > 60, BUN/ Creatinine Ratio 18, Glucose Level 88, Calcium Level 8.2L, Total Bilirubin 0.4, Aspartate Amino Transf (AST/SGOT) 21, Alanine Aminotransferase (ALT/SGPT) 14, Alkaline Phosphatase 56, Troponin I < 0.30, B-Type Natriuretic Peptide 225.5H, Total Protein 7.1, Albumin 3.3 07/10/17 15:11: Lactic Acid Level 0.87, Thyroid Stimulating Hormone (TSH) 0.47, Free Thyroxine 0.84 Laboratory Tests 3/2/18 12:42 ECG Impression ECG Comment ECG on 07/10/17: NSR, cannot exclude old septal IL A/P-Cardiology Assessment/Admission Diagnosis Bilateral pneumonia R corneal opacity and loss of vision in the R eye, chronic R facial paralysis, chronic Abnormal ECG: cannot exclude old septal IL on ECG of 07/10/17 Discussion and Recomendations * Treatment of pneumonia is with Dr Olivier * Echo to eval wall motion to eval for any prior IL * Monitor labs * I discussed her case with Dr Olivier on the phone today Clinical Quality Measures DVT/VTE Risk/Contraindication: Risk Factor Score Per Nursin RFS Level Per Nursing on Admit: 2=Moderate KATLYN NAIK MD FACP FAC CCDS Jul 10, 2017 16:18
[2017-07-10 16:21] VITALS: BP 147/65
[2017-07-10 20:22] VITALS: BP 125/58
[2017-07-11] VITALS: BP 157/68
[2017-07-11 04:00] VITALS: BP 157/66
[2017-07-11 05:06] LABS: BASOPHILS % (AUTO) 0 % (0-10); EOSINOPHILS # (AUTO) 0.1 10^3/uL (0.0-0.3); EOSINOPHILS % (AUTO) 1 % (0-10); HEMATOCRIT 39 % (35-52); HEMOGLOBIN 13.2 G/DL (11.5-16.0); LYMPHOCYTES # (AUTO) 0.5 X 10^3 (1.0-4.0); LYMPHOCYTES % (AUTO) 9 % (12-44); MEAN CORPUSCULAR HEMOGLOBIN 32 PG (25-34); MEAN CORPUSCULAR HGB CONC 34 G/DL (32-36); MEAN CORPUSCULAR VOLUME 95 FL (80-99); MEAN PLATELET VOLUME 10.6 FL (7.4-10.4); MONOCYTES # (AUTO) 0.5 X 10^3 (0.0-1.0); MONOCYTES % (AUTO) 9 % (0-12); NEUTROPHILS # (AUTO) 4.7 X 10^3 (1.8-7.8); NEUTROPHILS % (AUTO) 81 % (42-75); PLATELET COUNT 223 10^3/uL (130-400); RED BLOOD COUNT 4.13 10^6/uL (4.35-5.85); RED CELL DISTRIBUTION WIDTH 13.5 % (10.0-14.5); WHITE BLOOD COUNT 5.8 10^3/uL (4.3-11.0)
[2017-07-11 05:22] LABS: ALANINE AMINOTRANSFERASE 14 U/L (0-55); ALKALINE PHOSPHATASE 58 U/L (40-136); BILIRUBIN,TOTAL 0.4 MG/DL (0.1-1.0); BUN/CREATININE RATIO 16; CALCIUM 8.2 MG/DL (8.5-10.1); CARBON DIOXIDE 27 MMOL/L (21-32); CHLORIDE 103 MMOL/L (98-107); CREATININE SERUM 0.68 MG/DL (0.60-1.30); GFR ESTIMATED > 60; GLUCOSE 97 MG/DL (70-105); POTASSIUM 3.6 MMOL/L (3.6-5.0); SODIUM 137 MMOL/L (135-145); TOTAL PROTEIN 6.8 GM/DL (6.4-8.2)
[2017-07-11] MEDS: RT-ALBUTEROL SULF 2.5 MG/3 ML PRE-MIX VIAL INH SCH (07:55)
[2017-07-11 08:00] VITALS: BP 146/64
[2017-07-11] MEDS ORDERED: AZITHROMYCIN 250 MG TAB (ZITHROMAX) PO SCH (09:00)
[2017-07-11] MEDS ORDERED: CEFD300C3 PO (11:03)
--- NOTE | 2017-07-11 11:04 | Short Stay Summary-Hospitalist ---
HPI History of Present Illness: HPI/Chief Complaint Chief complaint: Bilateral pneumonia and debilitated status History of present illness: This is a 77-year-old white female who just lost her 4 days prior at via [facility] due to ventricular fibrillation and was placed on comfort care and passed quickly who presented to urgent care was worked up for fever and cough found to have bilateral pneumonia and such debilitated state she required hospital stay. She is placed in observation due to white count normal no hypoxia and otherwise stable labs with lactic acid that was normal. She has a history of taking her 's thyroid because she felt like it would give her energy and has had no follow-up since a very complex right eye surgery of which she uses the patch. She is adamant about going home and everything appears to be stable on workup so I do agree for discharge with close follow-up with primary care provider but she reports that she hasn't seen a doctor in [place] for over a year. Patient is very difficult to manage considering she is pacing waiting to go home and actually offered to leave AGAINST MEDICAL ADVICE. It was noted that her family brought her into urgent care with multiple complaints and hence seen their mother for quite some time but was home for of their father so unsure of the social support the patient has been apparently a daughter does live in town and will help care for the patient. Source: patient Exam Limitations: no limitations Date Seen 07/11/17 Time Seen by Provider: 10:30 Attending Physician Francy Olivier Robert K MD Referring Physician Date of Admission Jul 10, 2017 at 13:19 Home Medications & Allergies Home Medications Reviewed patient Home Medication Reconciliation Form Allergies Allergies Coded Allergies No Allergy Information Available (Unverified07/10/17) Past Awwgbbf-Kvazid-Graqhr Hx Patient Social History Marrital Status: (4 days ago) Alcohol Use: Denies Use Recreational Drug Use: No Smoking Status: Never a Smoker Physical Abuse Screen: No Sexual Abuse: No Recent Foreign Travel: No Contact w/other who traveled: No Recent Hopitalizations: No Immunizations Up To Date Date of Pneumonia Vaccine: Feb 09, 2017 Date of Influenza Vaccine: Feb 09, 2017 Seasonal Allergies Seasonal Allergies: Yes Surgeries Yes (RIGHT EYE SURGERY) Respiratory No Cardiovascular No Neurological Yes Paralysis, Stroke Genitourinary No Gastrointestinal No Musculoskeletal Yes Arthritis HEENT History of HEENT Disorders: Yes HEENT Disorders: Chronic Eye Infection Loss of Vision: Right Cancer No Psychosocial History of Psychiatric Problem: Yes Behavioral Health Disorders: Suicide Attempts Integumentary History of Skin or Integumenta: No Blood Transfusions History of Blood Disorders: No Review of Systems Constitutional: see HPI, malaise EENTM: no symptoms reported Respiratory: cough Cardiovascular: no symptoms reported Gastrointestinal: no symptoms reported Genitourinary: no symptoms reported Musculoskeletal: no symptoms reported Skin: no symptoms reported Psychiatric/Neurological: No Symptoms Reported All Other Systems Reviewed Negative Unless Noted: Yes Physical Exam Physical Exam Vital Signs Vital Signs - First Documented 07/10/17 07/10/17 07/10/17 14:00 14:48 16:21 Temp 98.2 Pulse 83 Resp 18 B/P (MAP) 147/65 (92) Pulse Ox 96 O2 Delivery Room Air FiO2 21 Capillary Refill : General Appearance: No Apparent Distress, WD/WN, Chronically ill, Cachetic Eyes: Bilateral Eye Normal Inspection, Bilateral Eye PERRL HEENT: PERRL/EOMI, Normal ENT Inspection, Pharynx Normal, Other (Right high chronic infection with patch over it most of the time) Neck: Full Range of Motion, Normal Inspection, Non Tender, Supple, Carotid Bruit Respiratory: Chest Non Tender, No Accessory Muscle Use, No Respiratory Distress , Crackles Cardiovascular: Regular Rate, Rhythm, No Edema, No Gallop, No JVD, No Murmur, Normal Peripheral Pulses Gastrointestinal: Normal Bowel Sounds, No Organomegaly, No Pulsatile Mass, Non Tender, Soft Back: Normal Inspection, No CVA Tenderness, No Vertebral Tenderness Extremity: Normal Capillary Refill, Normal Inspection, Normal Range of Motion, Non Tender, No Calf Tenderness, No Pedal Edema Neurologic/Psychiatric: Alert, Oriented x3, No Motor/Sensory Deficits, Normal Mood/Affect Skin: Normal Color, Warm/Dry Lymphatic: No Adenopathy Results Results/Procedures Lab Laboratory Tests 07/10/17 12:42 07/11/17 04:10 Short Stay Diagnosis Discharge Diagnosis-Short Stay Admission Diagnosis Assessment: Bilateral pneumonia Recent loss of spouse Debilitated status chronic Chronic right eye infection Facial paralysis questionable stroke remotely Elevated BNP prompting cardiology consultation Taking thyroid medicine without diagnosis of hypothyroidism but normal TSH we' ll hold discharge Noncompliant with medical recommendations willing to leave against medical advice if I don't discharge her Final Discharge Diagnosis Assessment: Bilateral pneumonia Recent loss of spouse Debilitated status chronic Chronic right eye infection Facial paralysis questionable stroke remotely Elevated BNP prompting cardiology consultation Taking thyroid medicine without diagnosis of hypothyroidism but normal TSH we' ll hold discharge Noncompliant with medical recommendations willing to leave against medical advice if I don't discharge her Conclusion Plan Plan: Discharge home at her insistence but she is stable Continue antibiotics Stop thyroid medicine Obtain appointment with Dr. Garcia Very difficult case Clinical Quality Measures DVT/VTE Risk/Contraindication: Risk Factor Score Per Nursin RFS Level Per Nursing on Admit: 2=Moderate FRANCY OLIVIER DO Jul 11, 2017 11:04
[2017-07-11] MEDS ORDERED: ASPI-983 PO (11:41)
--- NOTE | 2017-07-11 12:30 | Progress Note-Cardiology ---
Cardiology SOAP Progress Note Subjective: She denies cp or palp or syncope or shortness of breath. Insists on going home. Refuses to stay in the hosp any longer Objective: I&O/Vital Signs Vital Sign - Last 12Hours 07/11/17 07/11/17 07/11/17 01:30 04:00 07:56 Temp 98.2 Pulse 79 84 Resp 22 B/P (MAP) 157/66 (96) Pulse Ox 94 94 O2 Delivery Room Air Room Air Intake and Output 07/11/17 00:00 Intake Total 1210 ml Balance 1210 ml Weight (Pounds): 89 Weight (Ounces): 0.0 Weight (Calculated Kilograms): 40.195032 Constitutional: AAO x 3, well-developed, other (thin appearing) Respiratory: other (Fair air entry; prolonged exp phase; scattered rhonchi and wheezes) Cardiovascular: regular rate-rhythm, S1 and S2, systolic murmur (soft ANAY at card base) Gastrointestional: No tender, soft, No guarding, No rebound, audible bowel sounds Extremities: No clubbing, No cyanosis, No significant edema Neurologic/Psychiatric: facial droop, other (R facial paralysis), power is 5/5 both on sides Skin: No rash on exposed areas, No ulcerations on exposed areas Results/Procedures: Labs Laboratory Tests 07/10/17 12:42: White Blood Count 5.1, Red Blood Count 4.35, Hemoglobin 13.9, Hematocrit 42, Mean Corpuscular Volume 96, Mean Corpuscular Hemoglobin 32, Mean Corpuscular Hemoglobin Concent 33, Red Cell Distribution Width 13.6, Platelet Count 235, Mean Platelet Volume 11.0H, Neutrophils (%) (Auto) 81H, Lymphocytes (%) (Auto) 8L, Monocytes (%) (Auto) 10, Eosinophils (%) (Auto) 1, Basophils (%) (Auto) 0, Neutrophils # (Auto) 4.1, Lymphocytes # (Auto) 0.4L, Monocytes # (Auto) 0.5, Eosinophils # (Auto) 0.0, Basophils # (Auto) 0.0, Sodium Level 140, Potassium Level 3.6, Chloride Level 101, Carbon Dioxide Level 29, Anion Gap 10, Blood Urea Nitrogen 13, Creatinine 0.71, Estimat Glomerular Filtration Rate > 60, BUN/ Creatinine Ratio 18, Glucose Level 88, Calcium Level 8.2L, Total Bilirubin 0.4, Aspartate Amino Transf (AST/SGOT) 21, Alanine Aminotransferase (ALT/SGPT) 14, Alkaline Phosphatase 56, Troponin I < 0.30, B-Type Natriuretic Peptide 225.5H, Total Protein 7.1, Albumin 3.3 07/10/17 15:11: Lactic Acid Level 0.87, Thyroid Stimulating Hormone (TSH) 0.47, Free Thyroxine 0.84 07/11/17 04:10: White Blood Count 5.8, Red Blood Count 4.13L, Hemoglobin 13.2, Hematocrit 39, Mean Corpuscular Volume 95, Mean Corpuscular Hemoglobin 32, Mean Corpuscular Hemoglobin Concent 34, Red Cell Distribution Width 13.5, Platelet Count 223, Mean Platelet Volume 10.6H, Neutrophils (%) (Auto) 81H, Lymphocytes (%) (Auto) 9L, Monocytes (%) (Auto) 9, Eosinophils (%) (Auto) 1, Basophils (%) (Auto) 0, Neutrophils # (Auto) 4.7, Lymphocytes # (Auto) 0.5L, Monocytes # (Auto) 0.5, Eosinophils # (Auto) 0.1, Basophils # (Auto) 0.0, Sodium Level 137, Potassium Level 3.6, Chloride Level 103, Carbon Dioxide Level 27, Anion Gap 7, Blood Urea Nitrogen 11, Creatinine 0.68, Estimat Glomerular Filtration Rate > 60, BUN/ Creatinine Ratio 16, Glucose Level 97, Calcium Level 8.2L, Total Bilirubin 0.4, Aspartate Amino Transf (AST/SGOT) 27, Alanine Aminotransferase (ALT/SGPT) 14, Alkaline Phosphatase 58, Total Protein 6.8, Albumin 3.0L Laboratory Tests 07/10/17 12:42 07/11/17 04:10 A/P: Assessment: Bilateral pneumonia 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 ECG unchanged on 07/11/17 Echo of 07/10/17: Somewhat hyperdynamic LV, LVEF 70-75%, mod MR, mild TR, grade I diastolic dysfunction, PASP 25 mmHg No clinical evidence of decompensated CHF Plan: * Treatment of pneumonia is with Dr Olivier * I explained the findings of cardiac w/u to her * She appears clinically stable from a cardiac standpoint. No decomp CHF. No cp or palp or syncope * Given indication of an old septal SD on ECG, myocard perf imaging is recommended. She refuses. She states she will do it as an outpatient * We have recommend close outpatient f/u if she decides to leave today * We have recommended adding daily low dose aspirin to the regimen * I discussed her case with Dr Olivier on the phone today KATLYN NAIK MD FACP FAC CCDS Jul 11, 2017 12:30
[2017-07-11 13:00] VITALS: BP 142/64
[2017-07-11] MEDS: ENOXAPARIN 30 MG/0.3 ML (LOVENOX) SYR SC SCH (13:42)
[2017-07-11] MEDS: cefTRIAXone INJECTION 1,000 MG in NS (IVPB) 100 ML IV SCH (13:42)
[2017-07-11 16:12] VITALS: BP 142/64
== END 2017-07-11 11:03 | disposition home or self-care (01) ==
LOC: 4TH 13:19 → UNDOADMOB 13:19 → 4TH 13:45 → UNDODISOB 07-11 16:05
PROVIDERS: ADMIT Internal Medicine; ATTEND Internal Medicine
DX: J18.9 Pneumonia, unspecified organism (principal); R53.81 Other malaise; H44.001 Unspecified purulent endophthalmitis, right eye; R79.89 Other specified abnormal findings of blood chemistry; R94.31 Abnormal electrocardiogram [ECG] [EKG]; Z91.19 Patient's noncompliance with other medical treatment and regimen; Z79.899 Other long term (current) drug therapy
CPT/HCPCS: 36415; 71046; 80053; 83605; 83880; 84439; 84443; 84484; 85025; 87040; 93306; 94640; 94760

== ENCOUNTER → 2017-07-24 | Outpatient (CLI) | payer MEDICARE ==
[~2017-07-24] MED LIST: ASCO-262 PO; ASPI-983 PO; CALC-78 PO; CATHETER FLUSH 10 ML SYR IV PRN; CEFD300C3 PO; IOHEXOL 350 MG/ML 100 ML (OMNIPAQUE 350) VIAL IV ONE; NS 250 ML (IVPB) BAG IV ONE; THYR120T2 PO
--- NOTE | 2017-07-24 10:43 | Diagnostic Imaging Report ---
PROCEDURE: CT chest with and without contrast. TECHNIQUE: Multiple contiguous axial images were obtained through the chest before and after administration of intravenous contrast. INDICATION: Pulmonary nodule seen on chest radiograph. Followup. COMPARISON: Chest radiograph dated 07/10/2017. FINDINGS: Evaluation of the lung bermudez demonstrates patchy areas of airspace consolidation within the bilateral lower lobes, right greater than left. Some juxtapleural irregular density is also noted involving the anterior margins of the right middle lobe and lingula of the left upper lobe. There is also some irregular pleural thickening within both apices. Pulmonary nodule cannot be excluded given the scattered airspace disease. There is an area of bilobed spiculated nodular density within the lateral margins of the superior segment of the right lower lobe that measures approximately 1 x 1.8 cm. There is no effusion or pneumothorax. Cardiomediastinal structures show mild cardiomegaly. There is no large pericardial effusion. There is mild calcified aortic and coronary atherosclerosis. There is periaortic soft tissue density on the left Just above the diaphragmatic hiatus. It measures 1.1 x 0.8 cm (image 37, series 3). Otherwise, no abnormal mesenteric, retroperitoneal, or axillary adenopathy is seen. Bony structures show no acute abnormalities. Included portions of the upper abdomen are unremarkable as well. IMPRESSION: 1. Scattered patchy and confluent airspace infiltrates within both lung bases, right greater than left. 2. Bilobed spiculated nodular density within the apical segment of the right lower lobe as described above. This could represent an area of focal infiltrate as well, but true soft tissue nodule cannot be excluded. Followup after appropriate course of antibiotic therapy is recommended. 3. Areas of irregular pleural thickening likely on the basis of scarring involving the apices and anterior margins of the right middle lobe and lingula. 4. Mild cardiomegaly. Dictated by: Dictated on workstation # [id number]
== END ==
LOC: RAD 09:36
PROVIDERS: ATTEND Nurse Practitioner Family
DX: R91.8 Other nonspecific abnormal finding of lung field (principal); I51.7 Cardiomegaly
CPT/HCPCS: 71270

== ENCOUNTER 2018-02-25 16:09 | Observation (INO) | payer MEDICARE ==
[~2018-02-25] VITALS: Ht 160 cm; Wt 42.3 kg
[~2018-02-25 16:09] MED LIST changes: -CATHETER FLUSH 10 ML SYR IV PRN; -IOHEXOL 350 MG/ML 100 ML (OMNIPAQUE 350) VIAL IV ONE; -NS 250 ML (IVPB) BAG IV ONE
--- OUTSIDE RECORDS SUMMARY | 2018-02-25 16:14 | XMS REPORT | Clinical Summary ---
Author Author Admin, SC[employer] Address Unknown Phone Unavailable Allergies, Adverse Reactions, Alerts Allergy Name Reaction Description Start Date Severity Status Provider No Known Allergies Clary Brock MA Conditions or Problems Problem Name Problem Code Onset Date Status Entry Date Provider Comment Standard Description Annotate MUSCLE PAIN 729.1 Active Sherry Haq MD PhD Myalgia and myositis, unspecified Preop exam V72.84 Active Shahida Mares PORTABLE TRACKMAN Preoperative examination, unspecified History of myocardial infarction [...] MD Localized superficial swelling, mass, or lump Pneumonia 486 Active Akshat Nava MD Pneumonia, organism unspecified 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 Hypothyroidism, other specified 244.8 Active Akshat Nava MD Other specified acquired hypothyroidism Underweight 783.22 Active Akshat Nava MD Underweight Body mass index (BMI) 19 or less, adult Active Akshat Nava MD Body Mass Index less than 19, adult Wellness exam V70.0 Active Akshat Nava MD Routine general medical examination at a health care facility Medication List Medication Instructions Start Date Stop Date Generic Name NDC Status Provider Patient Instruction ASPIRIN 81 MG TBEC Take one (1) tablet by mouth daily ASPIRIN 47633497023 Active Akshat Nava MD Active CEFDINIR 300 MG ORAL CAPSULE 1 tab BID CEFDINIR 57534711473 No Longer Active Akshat Nava MD Active CALCIUM 500 + D3 500-600 MG-UNIT ORAL TABLET 1 tab daily CALCIUM CARB-CHOLECALCIFEROL 42036676708 Active Akshat Nava MD Active CALCIUM ASCORBATE 500 MG ORAL TABLET 1 tab daily CALCIUM ASCORBATE 07146089935 Active Akshat Nava MD Active DESONIDE 0.05 % EXTERNAL LOTION one application to forehead two times daily DESONIDE 68892891283 Active Akshat Nava MD Active CALCIUM HIGH POTENCY/VITAMIN D 600-200 MG-UNIT ORAL TABLET 2 daily CALCIUM CARBONATE-VITAMIN D 15721810677 No Longer Active Bridgett Guadarrama APRN Active CYCLOBENZAPRINE HCL 10 MG ORAL TABLET 1/2 - 1 tablet by mouth three times daily as needed for muscle spasm/pain CYCLOBENZAPRINE HCL 68052900983 No Longer Active Bridgett Guadarrama APRN Active CYCLOBENZAPRINE HCL 10 MG ORAL TABLET 1/2 - 1 tablet by mouth three times daily as needed for muscle spasm/pain CYCLOBENZAPRINE HCL 10 MG ORAL TABLET 647934 CYCLOBENZAPRINE HCL Inactive CALCIUM HIGH POTENCY/VITAMIN D 600-200 MG-UNIT ORAL TABLET 2 daily CALCIUM HIGH POTENCY/VITAMIN D 600-200 MG-UNIT ORAL TABLET 262344 CALCIUM CARBONATE-VITAMIN D Inactive CEFDINIR 300 MG ORAL CAPSULE 1 tab BID CEFDINIR 300 MG ORAL CAPSULE 991848 CEFDINIR Inactive Advance Directives Directive Description Start Date PERMISSION TO SHARE Vital Signs Date Name Value Unit Range Description blood pressure, diastolic, repeated by physician 72 BP shahid blood pressure, diastolic 72 mm[Hg] BP shahid blood pressure, systolic, repeated by physician 166 BP sys blood pressure, systolic 166 mm[Hg] BP sys height E&M 63 [in_us] Bdy height pulse rate E&M 68 /min Heart rate temperature E&M 91.5 [degF] Body temperature weight E&M 91.50 [lb_av] Weight Measured blood pressure, diastolic 75 mm[Hg] BP shahid blood pressure, systolic 178 mm[Hg] BP sys height E&M 63 [in_us] Bdy height pulse rate E&M 81 /min Heart rate temperature E&M 97.8 [degF] Body temperature weight E&M 91.0 [lb_av] Weight Measured blood pressure, diastolic 61 mm[Hg] BP shahid blood pressure, systolic 167 mm[Hg] BP sys pulse rate E&M 64 /min Heart rate temperature E&M 97.4 [degF] Body temperature weight E&M 86.5 [lb_av] Weight Measured Diagnostic Results Date Name Value Unit Range Description Lab Report: Lipid Panel, Thyroid Stimulating Hormone (L), Comp. Metaboli ... - Chemistry cholesterol, serum 219 mg/dL 790-260 4331/04/16 triglyceride, serum, fasting 50 mg/dL 30-200 HDL cholesterol, serum 91 mg/dL 32-60 LDL cholesterol, serum 118 mg/dL 0-130 TSH 0.83 m[iU]/mL 0.36-3.74 sodium, serum 140 mmol/L 755-132 0177/04/16 carbon dioxide, venous blood 31.6 mmol/L 21.0-32.0 potassium, serum 4.3 mmol/L 3.5-5.2 chloride, serum 100 mmol/L 98-107 blood glucose 88 mg/dL 65-110 urea nitrogen, blood 21 mg/dL 7-18 creatinine, serum 0.92 mg/dL 0.60-1.30 alanine aminotransferase (SGPT), serum 24 U/L 12-78 aspartate aminotransferase (SGOT), serum 33 U/L 15-37 calcium, serum 9.0 mg/dL 8.5-10.1 bilirubin, serum, total 0.60 mg/dL 0.00-1.00 Encounters Code Encounter Date Provider Facility CPT-32696 Level 3 Est. Patient 17:04:38 CDT Akshat Nava MD [facility] CPT-83673 Level 3 Est. 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
--- OUTSIDE RECORDS SUMMARY | 2018-02-25 16:14 | XMS REPORT | Clinical Summary ---
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 Rocio Maguire LPN Profound vision impairment, one eye, impairment level not further specified CAD 414.00 Active Rocio Maguire ENGINEER CHIEF Coronary atherosclerosis of unspecified type of vessel, [place] or graft Nutritional deficiency 269.9 Active Rocio Maguire ENGINEER CHIEF Unspecified nutritional deficiency Mild cognitive impairment 331.83 Active Rocio Maguire ENGINEER CHIEF Mild cognitive impairment, so stated Cerebral palsy 343.9 10/02/2016 Active Shilpa Dudley Helms LPN Infantile cerebral palsy, unspecified Medication List Medication Instructions Start Date Stop Date Generic Name NDC Status Provider Patient Instruction ASPIRIN 81 MG TBEC Take one (1) tablet by mouth daily ASPIRIN 51768787388 Active Akshat Nava MD Active CEFDINIR 300 MG ORAL CAPSULE 1 tab BID CEFDINIR 01019216223 No Longer Active Akshat Nava MD Active CALCIUM 500 + D3 500-600 MG-UNIT ORAL TABLET 1 tab daily CALCIUM CARB-CHOLECALCIFEROL 37489201418 Active Akshat Nava MD Active CALCIUM ASCORBATE 500 MG ORAL TABLET 1 tab daily CALCIUM ASCORBATE 10489205920 Active Akshat Nava MD Active DESONIDE 0.05 % EXTERNAL LOTION one application to forehead two times daily DESONIDE 63064969029 Active Akshat Nava MD Active CALCIUM HIGH POTENCY/VITAMIN D 600-200 MG-UNIT ORAL TABLET 2 daily CALCIUM CARBONATE-VITAMIN D 86534993219 No Longer Active Bridgett Guadarrama APRN Active CYCLOBENZAPRINE HCL 10 MG ORAL TABLET 1/2 - 1 tablet by mouth three times daily as needed for muscle spasm/pain CYCLOBENZAPRINE HCL 33999841057 No Longer Active Bridgett Guadarrama APRN Active CYCLOBENZAPRINE HCL 10 MG ORAL TABLET 1/2 - 1 tablet by mouth three times daily as needed for muscle spasm/pain CYCLOBENZAPRINE HCL 10 MG ORAL TABLET 560211 CYCLOBENZAPRINE HCL Inactive CALCIUM HIGH POTENCY/VITAMIN D 600-200 MG-UNIT ORAL TABLET 2 daily CALCIUM HIGH POTENCY/VITAMIN D 600-200 MG-UNIT ORAL TABLET 400726 CALCIUM CARBONATE-VITAMIN D Inactive CEFDINIR 300 MG ORAL CAPSULE 1 tab BID CEFDINIR 300 MG ORAL CAPSULE 930763 CEFDINIR Inactive Advance Directives Directive Description Start [...] Name Value Unit Range Description Lab Report: CBC - Hematology leukocyte count, blood 3.5 10^3/MM^3 10*3/mm3 4.6-10.2 erythrocyte (RBC) count 5.04 10^6/MM^3 10*6/mm3 3.80-5.80 hemoglobin, blood 16.1 g/dL 12.0-16.0 hematocrit, blood 48.1 % 37.0-47.0 mean corpuscular volume, RBC 95 fL 80-97 mean corpuscular hemoglobin, RBC 31.9 pg 27.0-31.2 mean corpuscular hemoglobin concentration, RBC 33.4 G/DL % 31.8- 35.4 red blood cell distribution width 13.5 % 11.6-14.8 platelet count 142 10^3/MM^3 10*3/mm3 142-424 Lab Report: Lipid Panel, Thyroid Stimulating Hormone (L), Comp. Metaboli ... - Chemistry cholesterol, serum 219 mg/dL 099-832 7407/04/16 triglyceride, serum, fasting 50 mg/dL 30-200 HDL cholesterol, serum 91 mg/dL 32-60 LDL cholesterol, serum 118 mg/dL 0-130 TSH 0.83 m[iU]/mL 0.36-3.74 sodium, serum 140 mmol/L 361-111 0178/04/16 carbon dioxide, venous blood 31.6 mmol/L 21.0-32.0 [...] 0.00-1.00 Encounters Code Encounter Date Provider Facility CPT-46630 Level 3 Est. Patient 17:04:38 CDT Akshat Nava MD [facility] CPT-17193 Level 3 Est. 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
--- OUTSIDE RECORDS SUMMARY | 2018-02-25 16:14 | XMS REPORT | Clinical Summary ---
Author Author Admin, SCOUT Collins [employer] Address Unknown Phone Unavailable Allergies, Adverse Reactions, Alerts Allergy Name Reaction Description Start Date Severity Status Provider No Known Allergies Clary Brock MA Conditions or Problems Problem Name Problem Code Onset Date Status Entry Date Provider Comment Standard Description Annotate MUSCLE PAIN 729.1 Active Sherry Haq MD PhD Myalgia and myositis, unspecified Preop exam V72.84 Active Shahida Mares PHYSICAL THERAPY COORDINATOR Preoperative examination, unspecified History of myocardial infarction [...] one (1) tablet by mouth daily ASPIRIN 68261670497 Active Akshat Nava MD Active CEFDINIR 300 MG ORAL CAPSULE 1 tab BID CEFDINIR 21424384377 No Longer Active Akshat Nava MD Active CALCIUM 500 + D3 500-600 MG-UNIT ORAL TABLET 1 tab daily CALCIUM CARB-CHOLECALCIFEROL 09294768046 Active Akshat Nava MD Active CALCIUM ASCORBATE 500 MG ORAL TABLET 1 tab daily CALCIUM ASCORBATE 81335925626 Active Akshat Nava MD Active DESONIDE 0.05 % EXTERNAL LOTION one application to forehead two times daily DESONIDE 27763329849 Active Akshat Nava MD Active CALCIUM HIGH POTENCY/VITAMIN D 600-200 MG-UNIT ORAL TABLET 2 daily CALCIUM CARBONATE-VITAMIN D 69044910048 No Longer Active Bridgett Guadarrama APRN Active CYCLOBENZAPRINE HCL 10 MG ORAL TABLET 1/2 - 1 tablet by mouth three times daily as needed for muscle spasm/pain CYCLOBENZAPRINE HCL 71140514684 No Longer Active Bridgett Guadarrama APRN Active CYCLOBENZAPRINE HCL 10 MG ORAL TABLET 1/2 - 1 tablet by mouth three times daily as needed for muscle spasm/pain CYCLOBENZAPRINE HCL 10 MG ORAL TABLET 632252 CYCLOBENZAPRINE HCL Inactive CALCIUM HIGH POTENCY/VITAMIN D 600-200 MG-UNIT ORAL TABLET 2 daily CALCIUM HIGH POTENCY/VITAMIN D 600-200 MG-UNIT ORAL TABLET 018462 CALCIUM CARBONATE-VITAMIN D Inactive CEFDINIR 300 MG ORAL CAPSULE 1 tab BID CEFDINIR 300 MG ORAL CAPSULE 213030 CEFDINIR Inactive Advance Directives Directive Description Start [...] ... - Chemistry cholesterol, serum 219 mg/dL 112-803 1483/04/16 triglyceride, serum, fasting 50 mg/dL 30-200 HDL cholesterol, serum 91 mg/dL 32-60 LDL cholesterol, serum 118 mg/dL 0-130 TSH 0.83 m[iU]/mL 0.36-3.74 sodium, serum 140 mmol/L 798-015 0128/04/16 carbon dioxide, venous blood 31.6 mmol/L 21.0-32.0 [...] 0.00-1.00 Encounters Code Encounter Date Provider Facility CPT-83488 Level 3 Est. Patient 17:04:38 CDT Akshat Nava MD [facility] CPT-43361 Level 3 Est. Patient 13:54:25 CDT Akshat Nava MD [facility] CPT-83230 Level 4 New Patient 15:40:56 CDT Bridgett Guadarrama APRN [facility] CPT-53147 Level 2 New Patient 22:03:35 CAMP GUARD Sher[facility] Ha[facility] MD [facility] Procedures Code Procedure Name Date Entry Date Standard Description CPT-G0438 Initial Annual Wellness Exam 17:04:38 CDT CPT-TCMM Transitional Care Mgmt-Moderate 15:44:55 CAMP GUARD CPT-32281 Chest, 2 views 15:05:04 CAMP GUARD CPT-95310 EKG Trac and Interp - XRAY USE ONLY 12:44:15 CDT 08/07 CPT-72134 Chest 2V Frontal and Lat - XRAY USE ONLY 12:44:15 CDT
--- OUTSIDE RECORDS SUMMARY | 2018-02-25 16:14 | XMS REPORT | Clinical Summary ---
Author Author Admin, SCOUT Collins [employer] Address Unknown Phone Unavailable Allergies, Adverse Reactions, [...] 351.0 Active Akshat Nava MD Peterson's palsy Medication List Medication Instructions Start Date Stop Date Generic Name NDC Status Provider Patient Instruction CALCIUM 500 + D3 500-600 MG-UNIT ORAL TABLET 1 tab daily CALCIUM CARB-CHOLECALCIFEROL 73226965494 Active Akshat Nava MD Active CALCIUM ASCORBATE 500 MG ORAL TABLET 1 tab daily CALCIUM ASCORBATE 69783032810 Active Akshat Nava MD Active CEFDINIR 300 MG ORAL CAPSULE 1 tab BID CEFDINIR 03553944476 Active Akshat Nava MD Active DESONIDE 0.05 % EXTERNAL LOTION one application to forehead two times daily DESONIDE 53050228968 Active Akshat Nava MD Active CALCIUM HIGH POTENCY/VITAMIN D 600-200 MG-UNIT ORAL TABLET 2 daily CALCIUM CARBONATE-VITAMIN D 98435976554 No Longer Active Bridgett Guadarrama APRN Active CYCLOBENZAPRINE HCL 10 MG ORAL TABLET 1/2 - 1 tablet by mouth three times daily as needed for muscle spasm/pain CYCLOBENZAPRINE HCL 86537068853 No Longer Active Bridgett Guadarrama APRN Active CYCLOBENZAPRINE HCL 10 MG ORAL TABLET 1/2 - 1 tablet by mouth three times daily as needed for muscle spasm/pain CYCLOBENZAPRINE HCL 10 MG ORAL TABLET 585303 CYCLOBENZAPRINE HCL Inactive CALCIUM HIGH POTENCY/VITAMIN D 600-200 MG-UNIT ORAL TABLET 2 daily CALCIUM HIGH POTENCY/VITAMIN D 600-200 MG-UNIT ORAL TABLET 421843 CALCIUM CARBONATE-VITAMIN D Inactive Advance Directives Directive Description Start Date PERMISSION TO SHARE Vital Signs Date Name Value Unit Range Description blood pressure, diastolic 75 mm[Hg] BP shahid [...] Measured Encounters Code Encounter Date Provider Facility CPT-92246 Level 3 Est. 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
--- OUTSIDE RECORDS SUMMARY | 2018-02-25 16:15 | XMS REPORT | Clinical Summary ---
Author Author Admin, SCOUT Collins [employer] Address Unknown Phone Unavailable Allergies, Adverse Reactions, [...] ORAL TABLET 1 tab daily CALCIUM CARB-CHOLECALCIFEROL 66671869429 Active Akshat Nava MD Active CALCIUM ASCORBATE 500 MG ORAL TABLET 1 tab daily CALCIUM ASCORBATE 02927563845 Active Akshat Nava MD Active CEFDINIR 300 MG ORAL CAPSULE 1 tab BID CEFDINIR 65576882185 Active Akshat Nava MD Active DESONIDE 0.05 % EXTERNAL LOTION one application to forehead two times daily DESONIDE 10182854289 Active Akshat Nava MD Active CALCIUM HIGH POTENCY/VITAMIN D 600-200 MG-UNIT ORAL TABLET 2 daily CALCIUM CARBONATE-VITAMIN D 01365421064 No Longer Active Bridgett Guadarrama APRN Active CYCLOBENZAPRINE HCL 10 MG ORAL TABLET 1/2 - 1 tablet by mouth three times daily as needed for muscle spasm/pain CYCLOBENZAPRINE HCL 46077630724 No Longer Active Bridgett Guadarrama APRN Active CYCLOBENZAPRINE HCL 10 MG ORAL TABLET 1/2 - 1 tablet by mouth three times daily as needed for muscle spasm/pain CYCLOBENZAPRINE HCL 10 MG ORAL TABLET 161694 CYCLOBENZAPRINE HCL Inactive CALCIUM HIGH POTENCY/VITAMIN D 600-200 MG-UNIT ORAL TABLET 2 daily CALCIUM HIGH POTENCY/VITAMIN D 600-200 MG-UNIT ORAL TABLET 486178 CALCIUM CARBONATE-VITAMIN D Inactive Advance Directives Directive [...] Measured Encounters Code Encounter Date Provider Facility CPT-93902 Level 3 Est. 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
--- OUTSIDE RECORDS SUMMARY | 2018-02-25 16:15 | XMS REPORT | Clinical Summary ---
Author Author Admin, SCOUT Collins [employer] Address Unknown Phone Unavailable Allergies, Adverse Reactions, [...] Bridgett Guadarrama APRN 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 Birdgett Guadarrama APRN Herpes zoster with other nervous [...] ORAL TABLET 1 tab daily CALCIUM CARB-CHOLECALCIFEROL 22486797379 Active Akshat Nava MD Active CALCIUM ASCORBATE 500 MG ORAL TABLET 1 tab daily CALCIUM ASCORBATE 79945696994 Active Akshat Nava MD Active CEFDINIR 300 MG ORAL CAPSULE 1 tab BID CEFDINIR 13702971274 Active Akshat Nava MD Active DESONIDE 0.05 % EXTERNAL LOTION one application to forehead two times daily DESONIDE 04074662304 Active Akshat Nava MD Active CALCIUM HIGH POTENCY/VITAMIN D 600-200 MG-UNIT ORAL TABLET 2 daily CALCIUM CARBONATE-VITAMIN D 75530141489 No Longer Active Bridgett Guadarrama APRN Active CYCLOBENZAPRINE HCL 10 MG ORAL TABLET 1/2 - 1 tablet by mouth three times daily as needed for muscle spasm/pain CYCLOBENZAPRINE HCL 80767817832 No Longer Active Bridgett Guadarrama APRN Active CYCLOBENZAPRINE HCL 10 MG ORAL TABLET 1/2 - 1 tablet by mouth three times daily as needed for muscle spasm/pain CYCLOBENZAPRINE HCL 10 MG ORAL TABLET 571506 CYCLOBENZAPRINE HCL Inactive CALCIUM HIGH POTENCY/VITAMIN D 600-200 MG-UNIT ORAL TABLET 2 daily CALCIUM HIGH POTENCY/VITAMIN D 600-200 MG-UNIT ORAL TABLET 455566 CALCIUM CARBONATE-VITAMIN D Inactive Advance Directives Directive [...] Measured Encounters Code Encounter Date Provider Facility CPT-98944 Level 3 Est. 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
--- OUTSIDE RECORDS SUMMARY | 2018-02-25 16:15 | XMS REPORT | Clinical Summary ---
Author Author Admin, SCOUT Collins [employer] Address Unknown Phone Unavailable Allergies, Adverse Reactions, Alerts Allergy Name Reaction Description Start Date Severity Status Provider No Known Allergies Clary Brock MA Conditions or Problems Problem Name Problem Code Onset Date Status Entry Date Provider Comment Standard Description Annotate MUSCLE PAIN 729.1 Active Sherry Haq MD PhD Myalgia and myositis, unspecified Preop exam V72.84 Active Shahida Mares LIFE MANAGER Preoperative examination, unspecified History of myocardial [...] further specified CAD 414.00 Active Rocio Maguire LPN Coronary atherosclerosis of unspecified type of vessel, jena or graft Nutritional deficiency 269.9 Active Rocio Maguire LPN Unspecified nutritional deficiency Mild cognitive impairment 331.83 Active Rocioanahi Maguire LPN Mild cognitive impairment, so stated Medication List Medication Instructions Start Date Stop Date Generic Name NDC Status Provider Patient Instruction ASPIRIN 81 MG TBEC Take one (1) tablet by mouth daily ASPIRIN 16229182251 Active Akshat Nava MD Active CEFDINIR 300 MG ORAL CAPSULE 1 tab BID CEFDINIR 81390383373 No Longer Active Akshat Nava MD Active CALCIUM 500 + D3 500-600 MG-UNIT ORAL TABLET 1 tab daily CALCIUM CARB-CHOLECALCIFEROL 23800412337 Active Akshat Nava MD Active CALCIUM ASCORBATE 500 MG ORAL TABLET 1 tab daily CALCIUM ASCORBATE 27905333957 Active Akshat Nava MD Active DESONIDE 0.05 % EXTERNAL LOTION one application to forehead two times daily DESONIDE 50244682242 Active Akshat Nava MD Active CALCIUM HIGH POTENCY/VITAMIN D 600-200 MG-UNIT ORAL TABLET 2 daily CALCIUM CARBONATE-VITAMIN D 45157273451 No Longer Active Bridgett Guadarrama APRN Active CYCLOBENZAPRINE HCL 10 MG ORAL TABLET 1/2 - 1 tablet by mouth three times daily as needed for muscle spasm/pain CYCLOBENZAPRINE HCL 74217845581 No Longer Active Bridgett Guadarrama APRN Active CYCLOBENZAPRINE HCL 10 MG ORAL TABLET 1/2 - 1 tablet by mouth three times daily as needed for muscle spasm/pain CYCLOBENZAPRINE HCL 10 MG ORAL TABLET 917131 CYCLOBENZAPRINE HCL Inactive CALCIUM HIGH POTENCY/VITAMIN D 600-200 MG-UNIT ORAL TABLET 2 daily CALCIUM HIGH POTENCY/VITAMIN D 600-200 MG-UNIT ORAL TABLET 234675 CALCIUM CARBONATE-VITAMIN D Inactive CEFDINIR 300 MG ORAL CAPSULE 1 tab BID CEFDINIR 300 MG ORAL CAPSULE 442831 CEFDINIR Inactive Advance Directives Directive Description Start [...] ... - Chemistry cholesterol, serum 219 mg/dL 029-546 7937/04/16 triglyceride, serum, fasting 50 mg/dL 30-200 HDL cholesterol, serum 91 mg/dL 32-60 LDL cholesterol, serum 118 mg/dL 0-130 TSH 0.83 m[iU]/mL 0.36-3.74 sodium, serum 140 mmol/L 476-528 7736/04/16 carbon dioxide, venous blood 31.6 mmol/L 21.0-32.0 [...] 0.00-1.00 Encounters Code Encounter Date Provider Facility CPT-21835 Level 3 Est. Patient 17:04:38 CDT Akshat Nava MD [facility] CPT-05337 Level 3 Est. Patient 13:54:25 CDT Akshat Nava MD [facility] CPT-03095 Level 4 New Patient 15:40:56 [facility] Level 2 New Patient 22:03:35 PREMIUM CANCELLATION CLERK Sherry Haq MD PhD [facility] Procedures Code Procedure Name Date Entry Date Standard Description CPT-G0438 Initial Annual Wellness Exam 17:04:38 CDT CPT-TCMM Transitional Care Mgmt-Moderate 15:44:55 PREMIUM CANCELLATION CLERK CPT-87388 Chest, 2 views 15:05:04 PREMIUM CANCELLATION CLERK CPT-09713 EKG Trac and Interp - XRAY USE ONLY 12:44:15 CDT 08/07 CPT-76730 Chest 2V Frontal and Lat - XRAY USE ONLY 12:44:15 CDT
--- OUTSIDE RECORDS SUMMARY | 2018-02-25 16:16 | XMS REPORT | Clinical Summary ---
Author Author Admin, SCOUT Collins [employer] Address Unknown Phone Unavailable Allergies, Adverse Reactions, Alerts Allergy Name Reaction Description Start Date Severity Status Provider No Known Allergies Clary Brock MA Conditions or Problems Problem Name Problem Code Onset Date Status Entry Date Provider Comment Standard Description Annotate MUSCLE PAIN 729.1 Active Sherry Haq MD PhD Myalgia and myositis, unspecified Preop exam V72.84 Active Shahida Marse MIXER OPERATOR HELPER HOT METAL Preoperative examination, unspecified History of myocardial infarction [...] one (1) tablet by mouth daily ASPIRIN 23473012967 Active Akshat Nava MD Active CEFDINIR 300 MG ORAL CAPSULE 1 tab BID CEFDINIR 38502257241 No Longer Active Akshat Nava MD Active CALCIUM 500 + D3 500-600 MG-UNIT ORAL TABLET 1 tab daily CALCIUM CARB-CHOLECALCIFEROL 99953070839 Active Akshat Nava MD Active CALCIUM ASCORBATE 500 MG ORAL TABLET 1 tab daily CALCIUM ASCORBATE 59139816712 Active Akshat Nava MD Active DESONIDE 0.05 % EXTERNAL LOTION one application to forehead two times daily DESONIDE 51702162148 Active Akshat Nava MD Active CALCIUM HIGH POTENCY/VITAMIN D 600-200 MG-UNIT ORAL TABLET 2 daily CALCIUM CARBONATE-VITAMIN D 95111410890 No Longer Active Bridgett Guadarrama APRN Active CYCLOBENZAPRINE HCL 10 MG ORAL TABLET 1/2 - 1 tablet by mouth three times daily as needed for muscle spasm/pain CYCLOBENZAPRINE HCL 87569719674 No Longer Active Bridgett Guadarrama APRN Active CYCLOBENZAPRINE HCL 10 MG ORAL TABLET 1/2 - 1 tablet by mouth three times daily as needed for muscle spasm/pain CYCLOBENZAPRINE HCL 10 MG ORAL TABLET 186999 CYCLOBENZAPRINE HCL Inactive CALCIUM HIGH POTENCY/VITAMIN D 600-200 MG-UNIT ORAL TABLET 2 daily CALCIUM HIGH POTENCY/VITAMIN D 600-200 MG-UNIT ORAL TABLET 104336 CALCIUM CARBONATE-VITAMIN D Inactive CEFDINIR 300 MG ORAL CAPSULE 1 tab BID CEFDINIR 300 MG ORAL CAPSULE 199487 CEFDINIR Inactive Advance Directives Directive Description Start [...] ... - Chemistry cholesterol, serum 219 mg/dL 411-375 2830/04/16 triglyceride, serum, fasting 50 mg/dL 30-200 HDL cholesterol, serum 91 mg/dL 32-60 LDL cholesterol, serum 118 mg/dL 0-130 TSH 0.83 m[iU]/mL 0.36-3.74 sodium, serum 140 mmol/L 262-981 3114/04/16 carbon dioxide, venous blood 31.6 mmol/L 21.0-32.0 [...] 0.00-1.00 Encounters Code Encounter Date Provider Facility CPT-11725 Level 3 Est. Patient 17:04:38 CDT Akshat Nava MD [facility] CPT-66843 Level 3 Est. Patient 13:54:25 CDT Akshat Nava MD [facility] CPT-62593 Level 4 New Patient 15:40:56 CDT Bridgett Guadarrama APRN [facility] CPT-98572 Level 2 New Patient 22:03:35 FINISHING OPERATOR Sherry Haq MD PhD [facility] Procedures Code Procedure Name Date Entry Date Standard Description CPT-G0438 Initial Annual Wellness Exam 17:04:38 CDT CPT-TCMM Transitional Care Mgmt-Moderate 15:44:55 FINISHING OPERATOR CPT-04236 Chest, 2 views 15:05:04 FINISHING OPERATOR CPT-59891 EKG Trac and Interp - XRAY USE ONLY 12:44:15 CDT 08/07 CPT-70607 Chest 2V Frontal and Lat - XRAY USE ONLY 12:44:15 CDT
--- OUTSIDE RECORDS SUMMARY | 2018-02-25 16:16 | XMS REPORT | Clinical Summary ---
Author Author Admin, SCOUT Collins [employer] Address Unknown Phone Unavailable Allergies, Adverse Reactions, Alerts Allergy Name Reaction Description Start Date Severity Status Provider No Known Allergies Clary Brock MA Conditions or Problems Problem Name Problem Code Onset Date Status Entry Date Provider Comment Standard Description Annotate MUSCLE PAIN 729.1 Active Sherry Haq MD PhD Myalgia and myositis, unspecified Preop exam V72.84 Active Shahida Mares FOUNDRY FINISHER Preoperative examination, unspecified History of myocardial infarction [...] one (1) tablet by mouth daily ASPIRIN 19169680852 Active Akshat Nava MD Active CEFDINIR 300 MG ORAL CAPSULE 1 tab BID CEFDINIR 22279820100 No Longer Active Akshat Nava MD Active CALCIUM 500 + D3 500-600 MG-UNIT ORAL TABLET 1 tab daily CALCIUM CARB-CHOLECALCIFEROL 04875365625 Active Akshat Nava MD Active CALCIUM ASCORBATE 500 MG ORAL TABLET 1 tab daily CALCIUM ASCORBATE 05334285383 Active Akshat Nava MD Active DESONIDE 0.05 % EXTERNAL LOTION one application to forehead two times daily DESONIDE 32992605985 Active Akshat Nava MD Active CALCIUM HIGH POTENCY/VITAMIN D 600-200 MG-UNIT ORAL TABLET 2 daily CALCIUM CARBONATE-VITAMIN D 07850778575 No Longer Active Bridgett Guadarrama APRN Active CYCLOBENZAPRINE HCL 10 MG ORAL TABLET 1/2 - 1 tablet by mouth three times daily as needed for muscle spasm/pain CYCLOBENZAPRINE HCL 02637590592 No Longer Active Bridgett Guadarrama APRN Active CYCLOBENZAPRINE HCL 10 MG ORAL TABLET 1/2 - 1 tablet by mouth three times daily as needed for muscle spasm/pain CYCLOBENZAPRINE HCL 10 MG ORAL TABLET 849253 CYCLOBENZAPRINE HCL Inactive CALCIUM HIGH POTENCY/VITAMIN D 600-200 MG-UNIT ORAL TABLET 2 daily CALCIUM HIGH POTENCY/VITAMIN D 600-200 MG-UNIT ORAL TABLET 577182 CALCIUM CARBONATE-VITAMIN D Inactive CEFDINIR 300 MG ORAL CAPSULE 1 tab BID CEFDINIR 300 MG ORAL CAPSULE 050136 CEFDINIR Inactive Advance Directives Directive Description Start [...] ... - Chemistry cholesterol, serum 219 mg/dL 767-083 4189/04/16 triglyceride, serum, fasting 50 mg/dL 30-200 HDL cholesterol, serum 91 mg/dL 32-60 LDL cholesterol, serum 118 mg/dL 0-130 TSH 0.83 m[iU]/mL 0.36-3.74 sodium, serum 140 mmol/L 094-784 9133/04/16 carbon dioxide, venous blood 31.6 mmol/L 21.0-32.0 [...] 0.00-1.00 Encounters Code Encounter Date Provider Facility CPT-25238 Level 3 Est. Patient 17:04:38 CDT Akshat Nava MD [facility] CPT-74748 Level 3 Est. Patient 13:54:25 CDT Akshat Nava MD [facility] CPT-21955 Level 4 New Patient 15:40:56 CDT Bridgett Guadarrama APRN [facility] CPT-56514 Level 2 New Patient 22:03:35 ARMY SENIOR OFFICER Sherry Haq MD [facility] Procedures Code Procedure Name Date Entry Date Standard Description CPT-G0438 Initial Annual Wellness Exam 17:04:38 CDT CPT-TCMM Transitional Care Mgmt-Moderate 15:44:55 ARMY SENIOR OFFICER CPT-13789 Chest, 2 views 15:05:04 ARMY SENIOR OFFICER CPT-54147 EKG Trac and Interp - XRAY USE ONLY 12:44:15 CDT 08/07 CPT-49496 Chest 2V Frontal and Lat - XRAY USE ONLY 12:44:15 CDT
--- OUTSIDE RECORDS SUMMARY | 2018-02-25 16:16 | XMS REPORT | Clinical Summary ---
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 Medication List Medication Instructions Start Date Stop Date Generic Name NDC Status Provider Patient Instruction CALCIUM 500 + D3 500-600 MG-UNIT ORAL TABLET 1 tab daily CALCIUM CARB-CHOLECALCIFEROL 62837360478 Active Akshat Nava MD Active CALCIUM ASCORBATE 500 MG ORAL TABLET 1 tab daily CALCIUM ASCORBATE 88797031622 Active Akshat Nava MD Active CEFDINIR 300 MG ORAL CAPSULE 1 tab BID CEFDINIR 42722268575 Active Akshat Nava MD Active DESONIDE 0.05 % EXTERNAL LOTION one application to forehead two times daily DESONIDE 51254225125 Active Akshat Nava MD Active CALCIUM HIGH POTENCY/VITAMIN D 600-200 MG-UNIT ORAL TABLET 2 daily CALCIUM CARBONATE-VITAMIN D 92025533268 No Longer Active Bridgett Guadarrama APRN Active CYCLOBENZAPRINE HCL 10 MG ORAL TABLET 1/2 - 1 tablet by mouth three times daily as needed for muscle spasm/pain CYCLOBENZAPRINE HCL 89793727017 No Longer Active Bridgett Guadarrama APRN Active CYCLOBENZAPRINE HCL 10 MG ORAL TABLET 1/2 - 1 tablet by mouth three times daily as needed for muscle spasm/pain CYCLOBENZAPRINE HCL 10 MG ORAL TABLET 736183 CYCLOBENZAPRINE HCL Inactive CALCIUM HIGH POTENCY/VITAMIN D 600-200 MG-UNIT ORAL TABLET 2 daily CALCIUM HIGH POTENCY/VITAMIN D 600-200 MG-UNIT ORAL TABLET 415311 CALCIUM CARBONATE-VITAMIN D Inactive Advance Directives Directive [...] temperature weight E&M 86.5 [lb_av] Weight Measured Encounters Code Encounter Date Provider Facility CPT-32031 Level 3 Est. Patient 13:54:25 CDT Akshat Nava MD [facility] CPT-50162 Level 4 New Patient 15:40:56 CDT Bridgett Guadarrama APRN [facility] CPT-56318 Level 2 New Patient 22:03:35 RESTAURANT MANAGEMENT INTERNSHIP Sherry Haq MD PhD [facility] Procedures Code Procedure Name Date Entry Date Standard Description CPT-TCMM Transitional Care Mgmt-Moderate 15:44:55 RESTAURANT MANAGEMENT INTERNSHIP CPT-88837 Chest, 2 views 15:05:04 RESTAURANT MANAGEMENT INTERNSHIP CPT-50026 EKG Trac and Interp - XRAY USE ONLY 12:44:15 CDT 08/07 CPT-06186 Chest 2V Frontal and Lat - XRAY USE ONLY 12:44:15 CDT
--- OUTSIDE RECORDS SUMMARY | 2018-02-25 16:16 | XMS REPORT | Clinical Summary ---
Author Author Admin, SCOUT Collins [employer] Address Unknown Phone Unavailable Allergies, Adverse Reactions, [...] ORAL TABLET 1 tab daily CALCIUM CARB-CHOLECALCIFEROL 76838144382 Active Akshat Nava MD Active CALCIUM ASCORBATE 500 MG ORAL TABLET 1 tab daily CALCIUM ASCORBATE 26213556856 Active Akshat Nava MD Active CEFDINIR 300 MG ORAL CAPSULE 1 tab BID CEFDINIR 14789061288 Active Akshat Nava MD Active DESONIDE 0.05 % EXTERNAL LOTION one application to forehead two times daily DESONIDE 33461417100 Active Akshat Nava MD Active CALCIUM HIGH POTENCY/VITAMIN D 600-200 MG-UNIT ORAL TABLET 2 daily CALCIUM CARBONATE-VITAMIN D 15910729595 No Longer Active Bridgett Guadarrama APRN Active CYCLOBENZAPRINE HCL 10 MG ORAL TABLET 1/2 - 1 tablet by mouth three times daily as needed for muscle spasm/pain CYCLOBENZAPRINE HCL 95386863802 No Longer Active Bridgett Guadarrama APRN Active CYCLOBENZAPRINE HCL 10 MG ORAL TABLET 1/2 - 1 tablet by mouth three times daily as needed for muscle spasm/pain CYCLOBENZAPRINE HCL 10 MG ORAL TABLET 141558 CYCLOBENZAPRINE HCL Inactive CALCIUM HIGH POTENCY/VITAMIN D 600-200 MG-UNIT ORAL TABLET 2 daily CALCIUM HIGH POTENCY/VITAMIN D 600-200 MG-UNIT ORAL TABLET 812689 CALCIUM CARBONATE-VITAMIN D Inactive Advance Directives Directive [...] Measured Encounters Code Encounter Date Provider Facility CPT-20818 Level 3 Est. 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
--- OUTSIDE RECORDS SUMMARY | 2018-02-25 16:16 | XMS REPORT | Clinical Summary ---
Author Author Admin, SCOUT Collins [employer] Address Unknown Phone Unavailable Allergies, Adverse Reactions, Alerts Allergy Name Reaction Description Start Date Severity Status Provider No Known Allergies Clary Brock MA Conditions or Problems Problem Name Problem Code Onset Date Status Entry Date Provider Comment Standard Description Annotate MUSCLE PAIN 729.1 Active Sherry Haq MD PhD Myalgia and myositis, unspecified Preop exam V72.84 Active Shahida Mares ACCOUNT CONSULTANT Preoperative examination, unspecified History of myocardial infarction [...] one (1) tablet by mouth daily ASPIRIN 02835065748 Active Akshat Nava MD Active CEFDINIR 300 MG ORAL CAPSULE 1 tab BID CEFDINIR 63163194673 No Longer Active Akshat Nava MD Active CALCIUM 500 + D3 500-600 MG-UNIT ORAL TABLET 1 tab daily CALCIUM CARB-CHOLECALCIFEROL 53195665510 Active Akshat Nava MD Active CALCIUM ASCORBATE 500 MG ORAL TABLET 1 tab daily CALCIUM ASCORBATE 87406606853 Active Akshat Nava MD Active DESONIDE 0.05 % EXTERNAL LOTION one application to forehead two times daily DESONIDE 96574155557 Active Akshat Nava MD Active CALCIUM HIGH POTENCY/VITAMIN D 600-200 MG-UNIT ORAL TABLET 2 daily CALCIUM CARBONATE-VITAMIN D 88208949992 No Longer Active Bridgett Guadarrama APRN Active CYCLOBENZAPRINE HCL 10 MG ORAL TABLET 1/2 - 1 tablet by mouth three times daily as needed for muscle spasm/pain CYCLOBENZAPRINE HCL 99267572563 No Longer Active Bridgett Guadarrama APRN Active CYCLOBENZAPRINE HCL 10 MG ORAL TABLET 1/2 - 1 tablet by mouth three times daily as needed for muscle spasm/pain CYCLOBENZAPRINE HCL 10 MG ORAL TABLET 165198 CYCLOBENZAPRINE HCL Inactive CALCIUM HIGH POTENCY/VITAMIN D 600-200 MG-UNIT ORAL TABLET 2 daily CALCIUM HIGH POTENCY/VITAMIN D 600-200 MG-UNIT ORAL TABLET 107792 CALCIUM CARBONATE-VITAMIN D Inactive CEFDINIR 300 MG ORAL CAPSULE 1 tab BID CEFDINIR 300 MG ORAL CAPSULE 480245 CEFDINIR Inactive Advance Directives Directive Description Start [...] ... - Chemistry cholesterol, serum 219 mg/dL 019-917 5700/04/16 triglyceride, serum, fasting 50 mg/dL 30-200 HDL cholesterol, serum 91 mg/dL 32-60 LDL cholesterol, serum 118 mg/dL 0-130 TSH 0.83 m[iU]/mL 0.36-3.74 sodium, serum 140 mmol/L 803-827 3530/04/16 carbon dioxide, venous blood 31.6 mmol/L 21.0-32.0 [...] 0.00-1.00 Encounters Code Encounter Date Provider Facility CPT-99365 Level 3 Est. Patient 17:04:38 CDT Akshat Nava MD [facility] CPT-00693 Level 3 Est. Patient 13:54:25 CDT Akshat Nava MD [facility] CPT-86123 Level 4 New Patient 15:40:56 CDT Bridgett Guadarrama APRN [facility] CPT-30889 Level 2 New Patient 22:03:35 LEAD BUSINESS ANALYST Sherry Haq MD PhD [facility] Procedures Code Procedure Name Date Entry Date Standard Description CPT-G0438 Initial Annual Wellness Exam 17:04:38 CDT CPT-TCMM Transitional Care Mgmt-Moderate 15:44:55 LEAD BUSINESS ANALYST CPT-15165 Chest, 2 views 15:05:04 LEAD BUSINESS ANALYST CPT-29315 EKG Trac and Interp - XRAY USE ONLY 12:44:15 CDT 08/07 CPT-34657 Chest 2V Frontal and Lat - XRAY USE ONLY 12:44:15 CDT
--- OUTSIDE RECORDS SUMMARY | 2018-02-25 16:17 | XMS REPORT | Clinical Summary ---
Author Author Admin, SCOUT Collins [employer] Address Unknown Phone Unavailable Allergies, Adverse Reactions, Alerts Allergy Name Reaction Description Start Date Severity Status Provider No Known Allergies Clary Brock MA Conditions or Problems Problem Name Problem Code Onset Date Status Entry Date Provider Comment Standard Description Annotate MUSCLE PAIN 729.1 Active Sherry Haq MD PhD Myalgia and myositis, unspecified Preop exam V72.84 Active Shahida Mares ENTRY LEVEL MARKETING REPRESENTATIVE Preoperative examination, unspecified History of myocardial infarction [...] Coronary atherosclerosis of unspecified type of vessel, [place] or graft Nutritional deficiency 269.9 Active Rcoio Maguire LPN Unspecified nutritional deficiency Mild cognitive impairment 331.83 Active Rocio Maguire LPN Mild cognitive impairment, so stated Medication List Medication Instructions Start Date Stop Date Generic Name NDC Status Provider Patient Instruction ASPIRIN 81 MG TBEC Take one (1) tablet by mouth daily ASPIRIN 95867755484 Active Akshat Nava MD Active CEFDINIR 300 MG ORAL CAPSULE 1 tab BID CEFDINIR 97602945099 No Longer Active Akshat Nava MD Active CALCIUM 500 + D3 500-600 MG-UNIT ORAL TABLET 1 tab daily CALCIUM CARB-CHOLECALCIFEROL 96823221065 Active Akshat Nava MD Active CALCIUM ASCORBATE 500 MG ORAL TABLET 1 tab daily CALCIUM ASCORBATE 68386170877 Active Akshat Nava MD Active DESONIDE 0.05 % EXTERNAL LOTION one application to forehead two times daily DESONIDE 87764755438 Active Akshat Nava MD Active CALCIUM HIGH POTENCY/VITAMIN D 600-200 MG-UNIT ORAL TABLET 2 daily CALCIUM CARBONATE-VITAMIN D 86514063153 No Longer Active Bridgett Guadarrama APRN Active CYCLOBENZAPRINE HCL 10 MG ORAL TABLET 1/2 - 1 tablet by mouth three times daily as needed for muscle spasm/pain CYCLOBENZAPRINE HCL 07442471755 No Longer Active Bridgett Guadarrama APRN Active CYCLOBENZAPRINE HCL 10 MG ORAL TABLET 1/2 - 1 tablet by mouth three times daily as needed for muscle spasm/pain CYCLOBENZAPRINE HCL 10 MG ORAL TABLET 986455 CYCLOBENZAPRINE HCL Inactive CALCIUM HIGH POTENCY/VITAMIN D 600-200 MG-UNIT ORAL TABLET 2 daily CALCIUM HIGH POTENCY/VITAMIN D 600-200 MG-UNIT ORAL TABLET 834656 CALCIUM CARBONATE-VITAMIN D Inactive CEFDINIR 300 MG ORAL CAPSULE 1 tab BID CEFDINIR 300 MG ORAL CAPSULE 153822 CEFDINIR Inactive Advance Directives Directive Description Start [...] Hormone (L), Comp. Metaboli ... - Chemistry TSH 0.83 m[iU]/mL 0.36-3.74 LDL cholesterol, serum 118 mg/dL 0-130 HDL cholesterol, serum 91 mg/dL 32-60 triglyceride, serum, fasting 50 mg/dL 30-200 cholesterol, serum 219 mg/dL 477-644 1456/04/16 sodium, serum 140 mmol/L 599-532 4611/04/16 carbon dioxide, venous blood 31.6 mmol/L 21.0-32.0 [...] 0.00-1.00 Encounters Code Encounter Date Provider Facility CPT-75410 Level 3 Est. Patient 17:04:38 CDT Akshat Nava MD [facility] CPT-03350 Level 3 Est. Patient 13:54:25 CDT Akshat Nava MD [facility] CPT-45901 Level 4 New Patient 15:40:56 [facility] Level 2 New Patient 22:03:35 METAL SOLDERER Sherry Haq MD PhD [facility] -[facility] Procedures Code Procedure Name Date Entry Date Standard Description CPT-G0438 Initial Annual Wellness Exam 17:04:38 CDT CPT-TCMM Transitional Care Mgmt-Moderate 15:44:55 METAL SOLDERER CPT-09332 Chest, 2 views 15:05:04 METAL SOLDERER CPT-96218 EKG Trac and Interp - XRAY USE ONLY 12:44:15 CDT 08/07 CPT-07713 Chest 2V Frontal and Lat - XRAY USE ONLY 12:44:15 CDT
--- OUTSIDE RECORDS SUMMARY | 2018-02-25 16:17 | XMS REPORT | Clinical Summary ---
Author Author Admin, SCOUT Collins [employer] Address Unknown Phone Unavailable Allergies, Adverse Reactions, [...] Active Akshat Nava MD Pneumonia, organism unspecified Medication List Medication Instructions Start Date Stop Date Generic Name NDC Status Provider Patient Instruction CALCIUM 500 + D3 500-600 MG-UNIT ORAL TABLET 1 tab daily CALCIUM CARB-CHOLECALCIFEROL 79437196516 Active Akshat Nava MD Active CALCIUM ASCORBATE 500 MG ORAL TABLET 1 tab daily CALCIUM ASCORBATE 52383663883 Active Akshat Nava MD Active CEFDINIR 300 MG ORAL CAPSULE 1 tab BID CEFDINIR 17523556275 Active Akshat Nava MD Active DESONIDE 0.05 % EXTERNAL LOTION one application to forehead two times daily DESONIDE 90353102158 Active Akshat Nava MD Active CALCIUM HIGH POTENCY/VITAMIN D 600-200 MG-UNIT ORAL TABLET 2 daily CALCIUM CARBONATE-VITAMIN D 85772684931 No Longer Active Bridgett Guadararma APRN Active CYCLOBENZAPRINE HCL 10 MG ORAL TABLET 1/2 - 1 tablet by mouth three times daily as needed for muscle spasm/pain CYCLOBENZAPRINE HCL 76670587812 No Longer Active Bridgett Guadarrama APRN Active CYCLOBENZAPRINE HCL 10 MG ORAL TABLET 1/2 - 1 tablet by mouth three times daily as needed for muscle spasm/pain CYCLOBENZAPRINE HCL 10 MG ORAL TABLET 289851 CYCLOBENZAPRINE HCL Inactive CALCIUM HIGH POTENCY/VITAMIN D 600-200 MG-UNIT ORAL TABLET 2 daily CALCIUM HIGH POTENCY/VITAMIN D 600-200 MG-UNIT ORAL TABLET 510942 CALCIUM CARBONATE-VITAMIN D Inactive Advance Directives Directive [...] Measured Encounters Code Encounter Date Provider Facility CPT-64885 Level 3 Est. 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
--- OUTSIDE RECORDS SUMMARY | 2018-02-25 16:17 | XMS REPORT | Clinical Summary ---
Author Author Admin, SCOUT Collins [employer] Address Unknown Phone Unavailable Allergies, Adverse Reactions, Alerts Allergy Name Reaction Description Start Date Severity Status Provider No Known Allergies Clary Brock MA Conditions or Problems Problem Name Problem Code Onset Date Status Entry Date Provider Comment Standard Description Annotate MUSCLE PAIN 729.1 Active Sherry Haq MD PhD Myalgia and myositis, unspecified Preop exam V72.84 Active Shahida Mares MANAGER DOCUMENT CONTROL Preoperative examination, unspecified History of myocardial infarction [...] one (1) tablet by mouth daily ASPIRIN 55385553877 Active Akshat Nava MD Active CEFDINIR 300 MG ORAL CAPSULE 1 tab BID CEFDINIR 86984944519 No Longer Active Akshat Nava MD Active CALCIUM 500 + D3 500-600 MG-UNIT ORAL TABLET 1 tab daily CALCIUM CARB-CHOLECALCIFEROL 58579776201 Active Akshat Nava MD Active CALCIUM ASCORBATE 500 MG ORAL TABLET 1 tab daily CALCIUM ASCORBATE 17072424340 Active Akshat Nava MD Active DESONIDE 0.05 % EXTERNAL LOTION one application to forehead two times daily DESONIDE 80885023610 Active Akshat Nava MD Active CALCIUM HIGH POTENCY/VITAMIN D 600-200 MG-UNIT ORAL TABLET 2 daily CALCIUM CARBONATE-VITAMIN D 49713470535 No Longer Active Bridgett Guadarrama APRN Active CYCLOBENZAPRINE HCL 10 MG ORAL TABLET 1/2 - 1 tablet by mouth three times daily as needed for muscle spasm/pain CYCLOBENZAPRINE HCL 90456632429 No Longer Active Bridgett Guadarrama APRN Active CYCLOBENZAPRINE HCL 10 MG ORAL TABLET 1/2 - 1 tablet by mouth three times daily as needed for muscle spasm/pain CYCLOBENZAPRINE HCL 10 MG ORAL TABLET 233364 CYCLOBENZAPRINE HCL Inactive CALCIUM HIGH POTENCY/VITAMIN D 600-200 MG-UNIT ORAL TABLET 2 daily CALCIUM HIGH POTENCY/VITAMIN D 600-200 MG-UNIT ORAL TABLET 735911 CALCIUM CARBONATE-VITAMIN D Inactive CEFDINIR 300 MG ORAL CAPSULE 1 tab BID CEFDINIR 300 MG ORAL CAPSULE 813413 CEFDINIR Inactive Advance Directives Directive Description Start [...] ... - Chemistry cholesterol, serum 219 mg/dL 622-070 8743/04/16 triglyceride, serum, fasting 50 mg/dL 30-200 HDL cholesterol, serum 91 mg/dL 32-60 LDL cholesterol, serum 118 mg/dL 0-130 TSH 0.83 m[iU]/mL 0.36-3.74 sodium, serum 140 mmol/L 120-188 6193/04/16 carbon dioxide, venous blood 31.6 mmol/L 21.0-32.0 [...] 0.00-1.00 Encounters Code Encounter Date Provider Facility CPT-24718 Level 3 Est. Patient 17:04:38 CDT Akshat Nava MD [facility] CPT-94659 Level 3 Est. 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
--- OUTSIDE RECORDS SUMMARY | 2018-02-25 16:17 | XMS REPORT | Clinical Summary ---
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 Mares COMPRESS ENGINEER Preoperative examination, unspecified History of myocardial infarction [...] one (1) tablet by mouth daily ASPIRIN 12868892916 Active Akshat Nava MD Active CEFDINIR 300 MG ORAL CAPSULE 1 tab BID CEFDINIR 10475004806 No Longer Active Akshat Nava MD Active CALCIUM 500 + D3 500-600 MG-UNIT ORAL TABLET 1 tab daily CALCIUM CARB-CHOLECALCIFEROL 85184060827 Active Akshat Nava MD Active CALCIUM ASCORBATE 500 MG ORAL TABLET 1 tab daily CALCIUM ASCORBATE 50276173991 Active Akshat Nava MD Active DESONIDE 0.05 % EXTERNAL LOTION one application to forehead two times daily DESONIDE 85023871211 Active Akshat Nava MD Active CALCIUM HIGH POTENCY/VITAMIN D 600-200 MG-UNIT ORAL TABLET 2 daily CALCIUM CARBONATE-VITAMIN D 94953797439 No Longer Active Bridgett Guadarrama APRN Active CYCLOBENZAPRINE HCL 10 MG ORAL TABLET 1/2 - 1 tablet by mouth three times daily as needed for muscle spasm/pain CYCLOBENZAPRINE HCL 57106081473 No Longer Active Bridgett Guadarrama APRN Active CYCLOBENZAPRINE HCL 10 MG ORAL TABLET 1/2 - 1 tablet by mouth three times daily as needed for muscle spasm/pain CYCLOBENZAPRINE HCL 10 MG ORAL TABLET 089529 CYCLOBENZAPRINE HCL Inactive CALCIUM HIGH POTENCY/VITAMIN D 600-200 MG-UNIT ORAL TABLET 2 daily CALCIUM HIGH POTENCY/VITAMIN D 600-200 MG-UNIT ORAL TABLET 109410 CALCIUM CARBONATE-VITAMIN D Inactive CEFDINIR 300 MG ORAL CAPSULE 1 tab BID CEFDINIR 300 MG ORAL CAPSULE 856649 CEFDINIR Inactive Advance Directives Directive Description Start [...] Measured Encounters Code Encounter Date Provider Facility CPT-55454 Level 3 Est. Patient 17:04:38 CDT Akshat Nava MD [facility] CPT-90823 Level 3 Est. 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 Procedures Code Procedure Name Date Entry Date Standard Description CPT-G0438 Initial Annual Wellness Exam 17:04:38 CDT CPT-TCMM Transitional Care Mgmt-Moderate 15:44:55 WAREHOUSE FOREMAN CPT-72281 Chest, 2 views 15:05:04 WAREHOUSE FOREMAN CPT-60218 EKG Trac and Interp - XRAY USE ONLY 12:44:15 CDT 08/07 CPT-28607 Chest 2V Frontal and Lat - XRAY USE ONLY 12:44:15 CDT
--- OUTSIDE RECORDS SUMMARY | 2018-02-25 16:18 | XMS REPORT | Clinical Summary ---
Author Author Admin, SCOUT Collins [employer] Address Unknown Phone Unavailable Allergies, Adverse Reactions, [...] ORAL TABLET 1 tab daily CALCIUM CARB-CHOLECALCIFEROL 30487739602 Active Akshat Nava MD Active CALCIUM ASCORBATE 500 MG ORAL TABLET 1 tab daily CALCIUM ASCORBATE 77693615996 Active Akshat Nava MD Active CEFDINIR 300 MG ORAL CAPSULE 1 tab BID CEFDINIR 40705013274 Active Akshat Nava MD Active DESONIDE 0.05 % EXTERNAL LOTION one application to forehead two times daily DESONIDE 61009437768 Active Akshat Nava MD Active CALCIUM HIGH POTENCY/VITAMIN D 600-200 MG-UNIT ORAL TABLET 2 daily CALCIUM CARBONATE-VITAMIN D 11642167802 No Longer Active Bridgett Guadarrama APRN Active CYCLOBENZAPRINE HCL 10 MG ORAL TABLET 1/2 - 1 tablet by mouth three times daily as needed for muscle spasm/pain CYCLOBENZAPRINE HCL 66406695262 No Longer Active Bridgett Guadarrama APRN Active CYCLOBENZAPRINE HCL 10 MG ORAL TABLET 1/2 - 1 tablet by mouth three times daily as needed for muscle spasm/pain CYCLOBENZAPRINE HCL 10 MG ORAL TABLET 493064 CYCLOBENZAPRINE HCL Inactive CALCIUM HIGH POTENCY/VITAMIN D 600-200 MG-UNIT ORAL TABLET 2 daily CALCIUM HIGH POTENCY/VITAMIN D 600-200 MG-UNIT ORAL TABLET 176190 CALCIUM CARBONATE-VITAMIN D Inactive Advance Directives Directive [...] Measured Encounters Code Encounter Date Provider Facility CPT-04208 Level 3 Est. 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
--- OUTSIDE RECORDS SUMMARY | 2018-02-25 16:18 | XMS REPORT | Clinical Summary ---
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 Preoperative examination, unspecified History of myocardial infarction [...] one (1) tablet by mouth daily ASPIRIN 16478429448 Active Akshat Nava MD Active CEFDINIR 300 MG ORAL CAPSULE 1 tab BID CEFDINIR 51581521170 No Longer Active Akshat Nava MD Active CALCIUM 500 + D3 500-600 MG-UNIT ORAL TABLET 1 tab daily CALCIUM CARB-CHOLECALCIFEROL 52202030879 Active Akshat Nava MD Active CALCIUM ASCORBATE 500 MG ORAL TABLET 1 tab daily CALCIUM ASCORBATE 97673545338 Active Akshat Nava MD Active DESONIDE 0.05 % EXTERNAL LOTION one application to forehead two times daily DESONIDE 86341713621 Active Akshat Nava MD Active CALCIUM HIGH POTENCY/VITAMIN D 600-200 MG-UNIT ORAL TABLET 2 daily CALCIUM CARBONATE-VITAMIN D 10619488456 No Longer Active Bridgett Guadarrama APRN Active CYCLOBENZAPRINE HCL 10 MG ORAL TABLET 1/2 - 1 tablet by mouth three times daily as needed for muscle spasm/pain CYCLOBENZAPRINE HCL 37053910549 No Longer Active Bridgett Guadarrama APRN Active CYCLOBENZAPRINE HCL 10 MG ORAL TABLET 1/2 - 1 tablet by mouth three times daily as needed for muscle spasm/pain CYCLOBENZAPRINE HCL 10 MG ORAL TABLET 464380 CYCLOBENZAPRINE HCL Inactive CALCIUM HIGH POTENCY/VITAMIN D 600-200 MG-UNIT ORAL TABLET 2 daily CALCIUM HIGH POTENCY/VITAMIN D 600-200 MG-UNIT ORAL TABLET 442852 CALCIUM CARBONATE-VITAMIN D Inactive CEFDINIR 300 MG ORAL CAPSULE 1 tab BID CEFDINIR 300 MG ORAL CAPSULE 363115 CEFDINIR Inactive Advance Directives Directive Description Start [...] ... - Chemistry cholesterol, serum 219 mg/dL 729-312 9157/04/16 triglyceride, serum, fasting 50 mg/dL 30-200 HDL cholesterol, serum 91 mg/dL 32-60 LDL cholesterol, serum 118 mg/dL 0-130 TSH 0.83 m[iU]/mL 0.36-3.74 sodium, serum 140 mmol/L 203-161 7362/04/16 carbon dioxide, venous blood 31.6 mmol/L 21.0-32.0 [...] 0.00-1.00 Encounters Code Encounter Date Provider Facility CPT-66582 Level 3 Est. Patient 17:04:38 CDT Akshat Nava MD [facility] CPT-94027 Level 3 Est. 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
--- OUTSIDE RECORDS SUMMARY | 2018-02-25 16:18 | XMS REPORT | Clinical Summary ---
Author Author Admin, SCOUT [employer] Address Unknown Phone Unavailable Allergies, Adverse Reactions, Alerts Allergy Name Reaction Description Start Date Severity Status Provider No Known Allergies Shahida Mares LPN Conditions or Problems Problem Name Problem Code Onset Date Status Entry Date Provider Comment Standard Description Annotate MUSCLE PAIN 729.1 Active Sehrry Haq MD PhD Myalgia and myositis, unspecified [...] ORAL TABLET 1 tab daily CALCIUM CARB-CHOLECALCIFEROL 09258920827 Active Akshat Nava MD Active CALCIUM ASCORBATE 500 MG ORAL TABLET 1 tab daily CALCIUM ASCORBATE 91375262704 Active Akshat Nava MD Active CEFDINIR 300 MG ORAL CAPSULE 1 tab BID CEFDINIR 68481582029 Active Akshat Nava MD Active DESONIDE 0.05 % EXTERNAL LOTION one application to forehead two times daily DESONIDE 08368977829 Active Akshat Nava MD Active CALCIUM HIGH POTENCY/VITAMIN D 600-200 MG-UNIT ORAL TABLET 2 daily CALCIUM CARBONATE-VITAMIN D 25640220938 No Longer Active Bridgett Guadarrama APRN Active CYCLOBENZAPRINE HCL 10 MG ORAL TABLET 1/2 - 1 tablet by mouth three times daily as needed for muscle spasm/pain CYCLOBENZAPRINE HCL 92474003644 No Longer Active Bridgett Guadarrama APRN Active CYCLOBENZAPRINE HCL 10 MG ORAL TABLET 1/2 - 1 tablet by mouth three times daily as needed for muscle spasm/pain CYCLOBENZAPRINE HCL 10 MG ORAL TABLET 957811 CYCLOBENZAPRINE HCL Inactive CALCIUM HIGH POTENCY/VITAMIN D 600-200 MG-UNIT ORAL TABLET 2 daily CALCIUM HIGH POTENCY/VITAMIN D 600-200 MG-UNIT ORAL TABLET 853001 CALCIUM CARBONATE-VITAMIN D Inactive Advance Directives Directive [...] Measured Encounters Code Encounter Date Provider Facility CPT-31991 Level 3 Est. 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
--- OUTSIDE RECORDS SUMMARY | 2018-02-25 16:19 | XMS REPORT | Clinical Summary ---
Author Author Admin, SCOUT [employer] Address Unknown Phone Unavailable Allergies, Adverse Reactions, [...] ORAL TABLET 1 tab daily CALCIUM CARB-CHOLECALCIFEROL 04055450358 Active Akshat Nava MD Active CALCIUM ASCORBATE 500 MG ORAL TABLET 1 tab daily CALCIUM ASCORBATE 56854142810 Active Akshat Nava MD Active CEFDINIR 300 MG ORAL CAPSULE 1 tab BID CEFDINIR 59457887965 Active Akshat Nava MD Active DESONIDE 0.05 % EXTERNAL LOTION one application to forehead two times daily DESONIDE 85926573147 Active Akshat Nava MD Active CALCIUM HIGH POTENCY/VITAMIN D 600-200 MG-UNIT ORAL TABLET 2 daily CALCIUM CARBONATE-VITAMIN D 99350984090 No Longer Active Bridgett Guadarrama APRN Active CYCLOBENZAPRINE HCL 10 MG ORAL TABLET 1/2 - 1 tablet by mouth three times daily as needed for muscle spasm/pain CYCLOBENZAPRINE HCL 57163904525 No Longer Active Bridgett Guadarrama APRN Active CYCLOBENZAPRINE HCL 10 MG ORAL TABLET 1/2 - 1 tablet by mouth three times daily as needed for muscle spasm/pain CYCLOBENZAPRINE HCL 10 MG ORAL TABLET 199176 CYCLOBENZAPRINE HCL Inactive CALCIUM HIGH POTENCY/VITAMIN D 600-200 MG-UNIT ORAL TABLET 2 daily CALCIUM HIGH POTENCY/VITAMIN D 600-200 MG-UNIT ORAL TABLET 752136 CALCIUM CARBONATE-VITAMIN D Inactive Advance Directives Directive [...] Measured Encounters Code Encounter Date Provider Facility CPT-40454 Level 3 Est. Patient 13:54:25 CDT Akshat Nava MD [facility] CPT-57097 Level 4 New Patient 15:40:56 CDT Bridgett Guadarrama APRN [facility] CPT-25796 Level 2 New Patient 22:03:35 [employer] Sherry Haq MD PhD [facility] -[facility] Procedures Code Procedure Name Date Entry Date Standard Description CPT-TCMM Transitional Care Mgmt-Moderate 15:44:55 [employer] CPT-91720 Chest, 2 views 15:05:04 [employer] CPT-13088 EKG Trac and Interp - XRAY USE ONLY 12:44:15 CDT 08/07 CPT-18692 Chest 2V Frontal and Lat - XRAY USE ONLY 12:44:15 CDT
--- OUTSIDE RECORDS SUMMARY | 2018-02-25 16:19 | XMS REPORT | Continuity of Care Document ---
Author Author [facility] Organization [facility] Address Unknown Phone Unavailable Allergies Active Description Code Type Severity Reaction Onset Reported/Identified Relationship to Patient Clinical Status Yes No Allergy Information Available [id number] Drug Allergy Unknown N/A 2017 Medications There is no data. 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 07/11/2017 CANNON DO, CASPER Ot Z91.19 PATIENT'S NONCOMPLIANCE W [facility] 07/11/2017 CANNON DO, CASPER Ot 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, RI 07/11/2017 CANNON DO, CASPER Ot J18.9 PNEUMONIA, UNSPECIFIED ORGANISM 07/11/2017 CANNON DO, CASPER Ot R53.81 OTHER MALAISE 07/11/2017 CANNON DO, CASPER Ot R79.89 OTHER SPECIFIED ABNORMAL FINDINGS OF BLO 07/11/2017 CANNON DO, CASPER Ot R94.31 ABNORMAL ELECTROCARDIOGRAM [ECG] [EKG] 07/11/2017 CANNON DO, CASPER Ot Z79.899 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 (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 07/11/2017 CANNON DO, CASPER Ot Z91.19 PATIENT'S NONCOMPLIANCE W [facility] 07/14/2017 Maia Rasmussen MD18.9 Pneumonia 07/14/2017 Maia Rasmussen MD 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 07/27/2017 DONAVAN, VERONICA L [employer] Ot I51.7 CARDIOMEGALY 07/27/2017 DONAVAN, VERONICA L [employer] Ot R91.8 OTHER NONSPECIFIC ABNORMAL FINDING OF GORDO 07/30/2017 DONAVAN, VERONICA L [employer] Ot I51.7 CARDIOMEGALY 07/30/2017 DONAVAN, VERONICA L [employer] Ot R91.8 OTHER NONSPECIFIC ABNORMAL FINDING OF GORDO 08/13/2017 DONAVAN, VERONICA L [employer] Ot I51.7 CARDIOMEGALY 08/13/2017 DONAVAN, VERONICA L [employer] Ot R91.8 OTHER NONSPECIFIC ABNORMAL FINDING OF GORDO 08/24/2017 Maia Rasmussen MD E03.8 Hypothyroidism, other specified 08/24/2017 Maia Rasmussen MD R63.6 Underweight 08/24/2017 Maia Rasmussen MD Z00.00 Wellness exam 08/24/2017 Maia Rasmussen MD Z68.1 Body mass index (BMI) 19 or less, adult 09/04/2017 Maia Rasmussen MD E63.9 Nutritional deficiency 09/04/2017 Maia Rasmussen MD G31.84 Mild cognitive impairment 09/04/2017 Maia Rasmussen MD 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 Results Test Result Range Complete blood count (CBC) with automated white blood cell (WBC) differential - 07/10/17 12:42 Blood leukocytes automated count (number/volume) 5.1 10*3/uL 4.3-11.0 Blood erythrocytes automated count (number/volume) 4.35 10*6/uL 4.35-5.85 Venous blood hemoglobin measurement (mass/volume) 13.9 g/dL 11.5-16.0 Blood hematocrit (volume fraction) 42 % 35-52 Automated erythrocyte mean corpuscular volume 96 [foz_us] 80-99 Automated erythrocyte mean corpuscular hemoglobin (mass per erythrocyte) 32 pg 25-34 Automated erythrocyte mean corpuscular hemoglobin concentration measurement ( mass/volume) 33 g/dL 32-36 Automated erythrocyte distribution width ratio 13.6 % 10.0-14.5 Automated blood platelet count (count/volume) 235 10*3/uL 130-400 Automated blood platelet mean volume measurement 11.0 [foz_us] 7.4-10.4 Automated blood neutrophils/100 leukocytes 81 % 42-75 Automated blood lymphocytes/100 leukocytes 8 % 12-44 Blood monocytes/100 leukocytes 10 % 0-12 Automated blood eosinophils/100 leukocytes 1 % 0-10 Automated blood basophils/100 leukocytes 0 % 0-10 Blood neutrophils automated count (number/volume) 4.1 10*3 1.8-7.8 Blood lymphocytes automated count (number/volume) 0.4 10*3 1.0-4.0 Blood monocytes automated count (number/volume) 0.5 10*3 0.0-1.0 Automated eosinophil count 0.0 10*3/uL 0.0-0.3 Automated blood basophil count (count/volume) 0.0 10*3/uL 0.0-0.1 Comprehensive metabolic panel - 07/10/17 12:42 Serum or plasma sodium measurement (moles/volume) 140 mmol/L 135-145 Serum or plasma potassium measurement (moles/volume) 3.6 mmol/L 3.6-5.0 Serum or plasma chloride measurement (moles/volume) 101 mmol/L 98-107 Carbon dioxide 29 mmol/L 21-32 Serum or plasma anion gap determination (moles/volume) 10 mmol/L 5-14 Serum or plasma urea nitrogen measurement (mass/volume) 13 mg/dL 7-18 Serum or plasma creatinine measurement (mass/volume) 0.71 mg/dL 0.60-1.30 Serum or plasma urea nitrogen/creatinine mass ratio 18 NRG Serum or plasma creatinine measurement with calculation of estimated glomerular filtration rate > NRG Serum or plasma glucose measurement (mass/volume) 88 mg/dL 70-105 Serum or plasma calcium measurement (mass/volume) 8.2 mg/dL 8.5-10.1 Serum or plasma total bilirubin measurement (mass/volume) 0.4 mg/dL 0.1-1.0 Serum or plasma alkaline phosphatase measurement (enzymatic activity/volume) 56 U/L 40-136 Serum or plasma aspartate aminotransferase measurement (enzymatic activity/ volume) 21 U/L 5-34 Serum or plasma alanine aminotransferase measurement (enzymatic activity/volume ) 14 U/L 0-55 Serum or plasma protein measurement (mass/volume) 7.1 g/dL 6.4-8.2 Serum or plasma albumin measurement (mass/volume) 3.3 g/dL 3.2-4.5 Serum or plasma troponin i.cardiac measurement (mass/volume) - 07/10/17 12:42 Serum or plasma troponin i.cardiac measurement (mass/volume) < ng/ mL <0.30 Serum or plasma lithium measurement (moles/volume) - 07/10/17 12:42 BNP level 225.5 pg/mL <100.0 Bacterial blood culture - 07/10/17 15:00 Bacterial blood culture NG [facility] Blood lactic acid measurement (moles/volume) - 07/10/17 15:11 Blood lactic acid measurement (moles/volume) 0.87 mmol/L 0.50-2.00 THYROID STIMULATING HORMONE - 07/10/17 15:11 THYROID STIMULATING HORMONE 0.47 u[iU]/mL 0.35-4.94 Serum or plasma thyroxine (T4) free measurement (mass/volume) - 07/10/17 15:11 Serum or plasma thyroxine (T4) free measurement (mass/volume) 0.84 ng/dL 0.70-1.48 Bacterial blood culture - 07/10/17 15:11 Bacterial blood culture NG [facility] Complete blood count (CBC) with automated white blood cell (WBC) differential - 07/11/17 04:10 Blood leukocytes automated count (number/volume) 5.8 10*3/uL 4.3-11.0 Blood erythrocytes automated count (number/volume) 4.13 10*6/uL 4.35-5.85 Venous blood hemoglobin measurement (mass/volume) 13.2 g/dL 11.5-16.0 Blood hematocrit (volume fraction) 39 % 35-52 Automated erythrocyte mean corpuscular volume 95 [foz_us] 80-99 Automated erythrocyte mean corpuscular hemoglobin (mass per erythrocyte) 32 pg 25-34 Automated erythrocyte mean corpuscular hemoglobin concentration measurement ( mass/volume) 34 g/dL 32-36 Automated erythrocyte distribution width ratio 13.5 % 10.0-14.5 Automated blood platelet count (count/volume) 223 10*3/uL 130-400 Automated blood platelet mean volume measurement 10.6 [foz_us] 7.4-10.4 Automated blood neutrophils/100 leukocytes 81 % 42-75 Automated blood lymphocytes/100 leukocytes 9 % 12-44 Blood monocytes/100 leukocytes 9 % 0-12 Automated blood eosinophils/100 leukocytes 1 % 0-10 Automated blood basophils/100 leukocytes 0 % 0-10 Blood neutrophils automated count (number/volume) 4.7 10*3 1.8-7.8 Blood lymphocytes automated count (number/volume) 0.5 10*3 1.0-4.0 Blood monocytes automated count (number/volume) 0.5 10*3 0.0-1.0 Automated eosinophil count 0.1 10*3/uL 0.0-0.3 Automated blood basophil count (count/volume) 0.0 10*3/uL 0.0-0.1 Comprehensive metabolic panel - 07/11/17 04:10 Serum or plasma sodium measurement (moles/volume) 137 mmol/L 135-145 Serum or plasma potassium measurement (moles/volume) 3.6 mmol/L 3.6-5.0 Serum or plasma chloride measurement (moles/volume) 103 mmol/L 98-107 Carbon dioxide 27 mmol/L 21-32 Serum or plasma anion gap determination (moles/volume) 7 mmol/L 5-14 Serum or plasma urea nitrogen measurement (mass/volume) 11 mg/dL 7-18 Serum or plasma creatinine measurement (mass/volume) 0.68 mg/dL 0.60-1.30 Serum or plasma urea nitrogen/creatinine mass ratio 16 NRG Serum or plasma creatinine measurement with calculation of estimated glomerular filtration rate > NRG Serum or plasma glucose measurement (mass/volume) 97 mg/dL 70-105 Serum or plasma calcium measurement (mass/volume) 8.2 mg/dL 8.5-10.1 Serum or plasma total bilirubin measurement (mass/volume) 0.4 mg/dL 0.1-1.0 Serum or plasma alkaline phosphatase measurement (enzymatic activity/volume) 58 U/L 40-136 Serum or plasma aspartate aminotransferase measurement (enzymatic activity/ volume) 27 U/L 5-34 Serum or plasma alanine aminotransferase measurement (enzymatic activity/volume ) 14 U/L 0-55 Serum or plasma protein measurement (mass/volume) 6.8 g/dL 6.4-8.2 Serum or plasma albumin measurement (mass/volume) 3.0 g/dL 3.2-4.5 Encounters ACCT No. Visit Date/Time Discharge Status Pt. Type Provider Facility Loc./Unit Complaint [id number] 11/02/2017 13:13:01 ACT Unknown Maia Rasmussen MD [id number] 09/22/2017 08:19:00 09/22/2017 23:59:59 CLS Preadmit MAIA RASMUSSEN MD [facility] RAD PNEUMONIA J18.9 [id number] 07/24/2017 09:36:00 07/24/2017 23:59:59 CLS Outpatient VERONICA GO APRN [facility] RAD RT PULMONARY NODULE [id number] 07/10/2017 13:19:00 07/11/2017 16:05:00 DIS Inpatient CASPER CANNON DO [facility] 4TH BILAT PNA [id number] 11/06/2017 07:39:44 ACT Document Registration [id number] 12/20/2015 19:10:31 12/20/2015 19:10:31 Outpatient
--- OUTSIDE RECORDS SUMMARY | 2018-02-25 16:19 | XMS REPORT | Clinical Summary ---
Author Author Admin, SCOUT Collins [employer] Address Unknown Phone Unavailable Allergies, Adverse Reactions, [...] ORAL TABLET 1 tab daily CALCIUM CARB-CHOLECALCIFEROL 27901502821 Active Akshat Nava MD Active CALCIUM ASCORBATE 500 MG ORAL TABLET 1 tab daily CALCIUM ASCORBATE 28697849370 Active Akshat Nava MD Active CEFDINIR 300 MG ORAL CAPSULE 1 tab BID CEFDINIR 81656766233 Active Akshat Nava MD Active DESONIDE 0.05 % EXTERNAL LOTION one application to forehead two times daily DESONIDE 09656053347 Active Akshat Nava MD Active CALCIUM HIGH POTENCY/VITAMIN D 600-200 MG-UNIT ORAL TABLET 2 daily CALCIUM CARBONATE-VITAMIN D 19433955958 No Longer Active Bridgett Guadarrama APRN Active CYCLOBENZAPRINE HCL 10 MG ORAL TABLET 1/2 - 1 tablet by mouth three times daily as needed for muscle spasm/pain CYCLOBENZAPRINE HCL 77542360374 No Longer Active Bridgett Guadarrama APRN Active CYCLOBENZAPRINE HCL 10 MG ORAL TABLET 1/2 - 1 tablet by mouth three times daily as needed for muscle spasm/pain CYCLOBENZAPRINE HCL 10 MG ORAL TABLET 983062 CYCLOBENZAPRINE HCL Inactive CALCIUM HIGH POTENCY/VITAMIN D 600-200 MG-UNIT ORAL TABLET 2 daily CALCIUM HIGH POTENCY/VITAMIN D 600-200 MG-UNIT ORAL TABLET 442752 CALCIUM CARBONATE-VITAMIN D Inactive Advance Directives Directive [...] Measured Encounters Code Encounter Date Provider Facility CPT-07099 Level 3 Est. 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
--- OUTSIDE RECORDS SUMMARY | 2018-02-25 16:19 | XMS REPORT | Clinical Summary ---
Author Author Admin, SCOUT Collins [employer] Address Unknown Phone Unavailable Allergies, Adverse Reactions, [...] ORAL TABLET 1 tab daily CALCIUM CARB-CHOLECALCIFEROL 16586150036 Active Akshat Nava MD Active CALCIUM ASCORBATE 500 MG ORAL TABLET 1 tab daily CALCIUM ASCORBATE 89019047073 Active Akshat Nava MD Active CEFDINIR 300 MG ORAL CAPSULE 1 tab BID CEFDINIR 32106543528 Active Akshat Nava MD Active DESONIDE 0.05 % EXTERNAL LOTION one application to forehead two times daily DESONIDE 04812542601 Active Akshat Nava MD Active CALCIUM HIGH POTENCY/VITAMIN D 600-200 MG-UNIT ORAL TABLET 2 daily CALCIUM CARBONATE-VITAMIN D 64942024302 No Longer Active Bridgett Guadarrama APRN Active CYCLOBENZAPRINE HCL 10 MG ORAL TABLET 1/2 - 1 tablet by mouth three times daily as needed for muscle spasm/pain CYCLOBENZAPRINE HCL 46924416899 No Longer Active Bridgett Guadarrama APRN Active CYCLOBENZAPRINE HCL 10 MG ORAL TABLET 1/2 - 1 tablet by mouth three times daily as needed for muscle spasm/pain CYCLOBENZAPRINE HCL 10 MG ORAL TABLET 111398 CYCLOBENZAPRINE HCL Inactive CALCIUM HIGH POTENCY/VITAMIN D 600-200 MG-UNIT ORAL TABLET 2 daily CALCIUM HIGH POTENCY/VITAMIN D 600-200 MG-UNIT ORAL TABLET 113194 CALCIUM CARBONATE-VITAMIN D Inactive Advance Directives Directive [...] Measured Encounters Code Encounter Date Provider Facility CPT-16473 Level 3 Est. Patient 13:54:25 CDT Akshat Nava MD [facility] CPT-37642 Level 4 New Patient 15:40:56 CDT Bridgett Guadarrama APRN [facility] CPT-59167 Level 2 New Patient 22:03:35 SKID WORKER Sherry Haq MD PhD [facility] -[facility] Procedures Code Procedure Name Date Entry Date Standard Description CPT-TCMM Transitional Care Mgmt-Moderate 15:44:55 SKID WORKER CPT-67640 Chest, 2 views 15:05:04 SKID WORKER CPT-97450 EKG Trac and Interp - XRAY USE ONLY 12:44:15 CDT 08/07 CPT-26102 Chest 2V Frontal and Lat - XRAY USE ONLY 12:44:15 CDT
--- NOTE | 2018-02-25 17:33 | ED Psychosocial ---
General Chief Complaint: Psych/Social Disorder Stated Complaint: MENTAL HEALTH EVAL Nursing Triage Note: ARRIVED VIA AMB WITH A UNSTEADY GAIT TO ROOM 07. [employer] [employer] RUFINO CALLED EARLIER ET STATES HER DAUGHTER WAS BRINGING HER OUT. PT WAS FOUND WONDERING AND SEEMED LOST ET UNABLE TO ANSWER THEIR QUESTIONS. THEY STATE HER IN JUN AND SINCE THEN THEY HAVE HAD NUMEROUS CALLS ABOUT HER WELLBEING. RUFINO FOR [facility] THEY ARE HOTLINING THE SITUATION. DAUGHTER CAME WITH PT BUT LEFT TO GO TO WORK AND WILL BE BACK AROUND 2030. DAUGHTER THINKS SHE MAY HAVE SOME PTSD FROM WATCHING HER . Source: patient Exam Limitations: physical impairment (pt does have a h/o stroke) History of Present Illness Date Seen by Provider: Feb 25, 2018 Time Seen by Provider: 17:33 Initial Comments 77-year-old female patient presents to the emergency department via private vehicle by her daughter. Patient was reportedly found wandering the streets. [place] PD reported to ED staff that there has been 15 calls since June for wellfare checks. PD reportedly hotlined patient tonight. Patient is a poor historian and unable to provide an accurate history. She states "I have no clue why I am here." Patient repeatedly asks why she is here and states "they are just trying to get rid of me. they are just tired of me." Patient also states she walks her dog every hour. She could not recall her address, but states when she walks her dog she can tell the dog to take her home and it does. Per ED staff, patient's daughter went to work and will be back at 2030. Patient denies suicidal or homicidal ideation. Patient lost her in Jun 2017. She does live with her daughter. 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)), No nose congestion, No throat pain, No throat swelling Respiratory: No cough, No dyspnea on exertion, No orthopnea, No phlegm, No short of breath Cardiovascular: No chest pain, No edema, No palpitations, No syncope Gastrointestinal: No abdominal pain, No constipation, No diarrhea, No nausea, No vomiting Genitourinary: No decreased output, No dysuria, No frequency Musculoskeletal: no symptoms reported Skin: no symptoms reported Psychiatric/Neurological: See HPI; Denies Headache, Denies Numbness, Denies Paresthesia; Pre-Existing Deficit (pt does have a h/o stroke, but does not recall how long ago.); Denies Tingling, Denies Weakness All Other Systems Reviewed Negative Unless Noted: Yes (Negative excepted noted.) Past Mmsurjx-[place] Hx Patient Social History Recent Foreign Travel: No Contact w/Someone Who Travel: No Recent Infectious Disease Expo: No Recent Hopitalizations: No Immunizations Up To Date Date of Pneumonia Vaccine: Feb 09, 2017 Date of Influenza Vaccine: Feb 09, 2017 Seasonal Allergies Seasonal Allergies: Yes Past Medical History Surgeries: Yes (RIGHT EYE SURGERY) Respiratory: No Cardiac: No Neurological: Yes Paralysis, Stroke Genitourinary: No Gastrointestinal: No Musculoskeletal: Yes Arthritis HEENT: Yes Chronic Eye Infection Loss of Vision: Right Cancer: No Psychosocial: Yes Suicide Attempts Integumentary: No Blood Disorders: No Physical Exam Vital Signs - First Documented 02/25/18 16:55 Temp 98.0 Pulse 75 Resp 16 B/P (MAP) 136/69 (91) Pulse Ox 99 O2 Delivery Room Air Capillary Refill : Less Than 3 Seconds Height, Weight, BMI Height: 5'3.00" Weight: 89lbs. 0.0oz. 40.770222or; 15.3 BMI Method:Stated General Appearance: no apparent distress, thin, other (chronically ill appearing female. disheveled. ) HEENT: PERRL/EOMI ((right eye consistent with h/o chronic infection with an eye patch over it).), normal ENT inspection, TMs normal, pharynx normal Neck: non-tender, full range of motion, normal inspection, other (cachetic) Respiratory: lungs clear, normal breath sounds, no respiratory distress, no accessory muscle use Cardiovascular: normal peripheral pulses, regular rate, rhythm, no edema, no murmur Gastrointestinal: normal bowel sounds, non tender, soft, no organomegaly Extremities: no pedal edema, no calf tenderness, normal capillary refill Neurologic/Psychiatric: bolt sawyer II-XII nml as tested, no motor/sensory deficits, alert, other (agitated. pt is oriented to month, city, and current president ( but also thinks her PCP's name is Shivani). paranoid.) Appearance/Memory: denies illness, disheveled, impaired insight, impaired recent memory Behavior/Eye Contact: cooperative, good eye contact, normal speech, compulsive Thoughts/Hallucinations: no apparent hallucination, obsessive, paranoid Skin: normal color, warm/dry Progress/Results/Core Measures Results/Orders Lab Results Laboratory Tests Test 02/25/18 18:10 02/25/18 18:20 Range/Units White Blood Count 4.7 4.3-11.0 10^3/uL Red Blood Count 4.59 4.35-5.85 10^6/uL Hemoglobin 14.6 11.5-16.0 G/DL Hematocrit 43 35-52 % Mean Corpuscular Volume 95 80-99 FL Mean Corpuscular Hemoglobin 32 25-34 PG Mean Corpuscular Hemoglobin Concent 34 32-36 G/DL Red Cell Distribution Width 14.4 10.0-14.5 % Platelet Count 135 130-400 10^3/uL Mean Platelet Volume 11.1 H 7.4-10.4 FL Neutrophils (%) (Auto) 79 H 42-75 % Lymphocytes (%) (Auto) 10 L 12-44 % Monocytes (%) (Auto) 10 0-12 % Eosinophils (%) (Auto) 1 0-10 % Basophils (%) (Auto) 0 0-10 % Neutrophils # (Auto) 3.7 1.8-7.8 X 10^3 Lymphocytes # (Auto) 0.5 L 1.0-4.0 X 10^3 Monocytes # (Auto) 0.5 0.0-1.0 X 10^3 Eosinophils # (Auto) 0.0 0.0-0.3 10^3/uL Basophils # (Auto) 0.0 0.0-0.1 10^3/uL Sodium Level 137 135-145 MMOL/L Potassium Level 4.9 3.6-5.0 MMOL/L Chloride Level 101 98-107 MMOL/L Carbon Dioxide Level 26 21-32 MMOL/L Anion Gap 10 5-14 MMOL/L Blood Urea Nitrogen 26 H 7-18 MG/DL Creatinine 0.87 0.60-1.30 MG/DL Estimat Glomerular Filtration Rate > 60 BUN/Creatinine Ratio 30 Glucose Level 91 70-105 MG/DL Calcium Level 9.3 8.5-10.1 MG/DL Corrected Calcium 9.5 8.5-10.1 MG/DL Total Bilirubin 1.1 H 0.1-1.0 MG/DL Aspartate Amino Transf (AST/SGOT) 45 H 5-34 U/L Alanine Aminotransferase (ALT/SGPT) 27 0-55 U/L Alkaline Phosphatase 51 40-136 U/L Total Protein 7.6 6.4-8.2 GM/DL Albumin 3.8 3.2-4.5 GM/DL TSH [place] Testing 1.27 0.35-4.94 UIU/ML Salicylates Level < 5.0 L 5.0-20.0 MG/DL Acetaminophen Level < 10 L 10-30 UG/ML Serum Alcohol < 10 <10 MG/DL Urine Color YELLOW Urine Clarity CLEAR Urine pH 6.5 5-9 Urine Specific [place] 1.015 L 1.016-1.022 Urine Protein NEGATIVE NEGATIVE Urine Glucose (UA) NEGATIVE NEGATIVE Urine Ketones NEGATIVE NEGATIVE Urine Nitrite NEGATIVE NEGATIVE Urine Bilirubin NEGATIVE NEGATIVE Urine Urobilinogen NORMAL NORMAL MG/DL Urine Leukocyte Esterase NEGATIVE NEGATIVE Urine RBC (Auto) NEGATIVE NEGATIVE Urine RBC NONE /HPF Urine WBC NONE /HPF Urine Squamous Epithelial Cells RARE /HPF Urine Crystals NONE /LPF Urine Bacteria NONE /HPF Urine Casts PRESENT /LPF Urine Hyaline Casts RARE /LPF Urine Mucus NEGATIVE /LPF Urine Culture Indicated NO Urine Opiates Screen NEGATIVE NEGATIVE Urine Oxycodone Screen NEGATIVE NEGATIVE Urine Methadone Screen NEGATIVE NEGATIVE Urine Propoxyphene Screen NEGATIVE NEGATIVE Urine Barbiturates Screen NEGATIVE NEGATIVE Ur Tricyclic Antidepressants Screen NEGATIVE NEGATIVE Urine Phencyclidine Screen NEGATIVE NEGATIVE Urine Amphetamines Screen NEGATIVE NEGATIVE Urine Methamphetamines Screen NEGATIVE NEGATIVE Urine Benzodiazepines Screen NEGATIVE NEGATIVE Urine Cocaine Screen NEGATIVE NEGATIVE Urine Cannabinoids Screen NEGATIVE NEGATIVE My Orders Orders - NITZA BECERRA Alcohol (02/25/18 18:08) Cbc With Automated Diff (02/25/18 18:08) Comprehensive Metabolic Panel (02/25/18 18:08) Drug Screen Stat (Urine) (02/25/18 18:08) Thyroid Analyzer (02/25/18 18:08) Ua Culture If Indicated (02/25/18 18:08) Ct Head Wo (02/25/18 18:08) Saline Lock/Iv-Start (02/25/18 18:08) Ns Iv 1000 Ml (Sodium Chloride 0.9%) (02/25/18 18:08) Acetaminophen (02/25/18 18:08) Salicylate (02/25/18 18:08) Vital Signs/I&O 02/25/18 16:55 Temp 98.0 Pulse 75 Resp 16 B/P (MAP) 136/69 (91) Pulse Ox 99 O2 Delivery Room Air Blood Pressure Mean: 91 Diagnostic Imaging Diagonstic Imaging: CT Plain Films/CT/US/NM/MRI: head Comments CT HEAD WO PROCEDURE: CT head without contrast. TECHNIQUE: Multiple contiguous axial images were obtained through the brain without the use of intravenous contrast. INDICATION: Change in mental status. Confusion. FINDINGS: The ventricles are normal in size, shape and position. There is no acute parenchymal hemorrhage, edema or mass. There is no extra-axial mass or hemorrhage. There is no bony abnormality. IMPRESSION: No abnormality is seen. Dictated by: Dictated on workstation # [id number] Reviewed: Reviewed by Me (radiology report reviewed by me) Departure Communication (Admissions) Patient repeatedly yelling out and wanting to know why she is here. I have discussed the reasons why she was brought to the ED numerous times. Patient does not 2129 daughter returned to the ED. patient's daughter is very concerned due to patient's increased confusion and wandering off through the daytime. Daughter reports her gets calls frequently about the patient being lost and disoriented. Patient also has been found walking down the middle of [address]. Patient wanders up to strangers homes asking for a ride home and has even gotten rides from complete strangers. Daughter is very concerned for patient's safety. When discussing possible need for assisted living placement or group home placement in the near future, patient repeatedly states "If that is what is going to happen, I will just end it all." Daughter reports patient has made numerous statements about harming herself. Patient continues to deny any suicidal or homicidal ideation. Daughter reports the patient has been taking her father's thyroid medicine after he . Patient is not prescribed any medications. [address] patient case discussed with Dr. Olivier, she graciously accepts patient to her medical service for observation d/t altered mental status. Patient and daughter notified of plan for admission. Both verbalize understanding. Patient case discussed with Dr. Peterson, he agrees with the plan of care. Impression Primary Impression: Altered mental status Qualified Codes: R41.82 - Altered mental status, unspecified Disposition: ADMITTED INPATIENT Condition: Stable Admissions Decision to Admit Reason: Admit from ER (General) Decision to Admit/Date: Feb 25, 2018 Time/Decision to Admit Time: 22:04 Departure-Patient Inst. Referrals: MAIA RASMUSSEN MD (PCP/Family) Primary Care Physician Scripts Unable to Obtain Active Prescriptions or Reported Meds NITZA BECERRA Feb 25, 2018 17:33
[2018-02-25] MEDS ORDERED: NS IV 1000 ML 1,000 ML IV SCH (18:08)
[2018-02-25 18:15] LABS: BASOPHILS % (AUTO) 0 % (0-10); EOSINOPHILS % (AUTO) 1 % (0-10); HEMATOCRIT 43 % (35-52); HEMOGLOBIN 14.6 G/DL (11.5-16.0); LYMPHOCYTES # (AUTO) 0.5 X 10^3 (1.0-4.0); LYMPHOCYTES % (AUTO) 10 % (12-44); MEAN CORPUSCULAR HEMOGLOBIN 32 PG (25-34); MEAN CORPUSCULAR HGB CONC 34 G/DL (32-36); MEAN CORPUSCULAR VOLUME 95 FL (80-99); MEAN PLATELET VOLUME 11.1 FL (7.4-10.4); MONOCYTES # (AUTO) 0.5 X 10^3 (0.0-1.0); MONOCYTES % (AUTO) 10 % (0-12); NEUTROPHILS # (AUTO) 3.7 X 10^3 (1.8-7.8); NEUTROPHILS % (AUTO) 79 % (42-75); PLATELET COUNT 135 10^3/uL (130-400); RED BLOOD COUNT 4.59 10^6/uL (4.35-5.85); RED CELL DISTRIBUTION WIDTH 14.4 % (10.0-14.5); WHITE BLOOD COUNT 4.7 10^3/uL (4.3-11.0)
[2018-02-25 18:31] LABS: BILIRUBIN,URINE NEGATIVE (NEGATIVE); CLARITY,URINE CLEAR; COLOR,URINE YELLOW; GLUCOSE, URINE (UA) NEGATIVE (NEGATIVE); KETONES,URINE NEGATIVE (NEGATIVE); LEUKOCYTE ESTERASE ,URINE NEGATIVE (NEGATIVE); NITRITE,URINE NEGATIVE (NEGATIVE); PH,URINE 6.5 (5-9); PROTEIN,URINE NEGATIVE (NEGATIVE); UROBILINOGEN,URINE NORMAL (NORMAL)
[2018-02-25 18:33] LABS: ALANINE AMINOTRANSFERASE 27 U/L (0-55); ALBUMIN 3.8 GM/DL (3.2-4.5); ALKALINE PHOSPHATASE 51 U/L (40-136); BILIRUBIN,TOTAL 1.1 MG/DL (0.1-1.0); BUN/CREATININE RATIO 30; CALCIUM 9.3 MG/DL (8.5-10.1); CARBON DIOXIDE 26 MMOL/L (21-32); CHLORIDE 101 MMOL/L (98-107); CREATININE SERUM 0.87 MG/DL (0.60-1.30); GFR ESTIMATED > 60; GLUCOSE 91 MG/DL (70-105); POTASSIUM 4.9 MMOL/L (3.6-5.0); SALICYLATE < 5.0 MG/DL (5.0-20.0); SODIUM 137 MMOL/L (135-145); TOTAL PROTEIN 7.6 GM/DL (6.4-8.2)
[2018-02-25 18:34] LABS: ACETAMINOPHEN < 10 UG/ML (10-30)
[2018-02-25 18:37] LABS: HYALINE CASTS, URINE RARE /LPF; SQUAMOUS EPITHELIAL CELL,UR RARE /HPF
--- NOTE | 2018-02-25 18:37 | Diagnostic Imaging Report ---
PROCEDURE: CT head without contrast. TECHNIQUE: Multiple contiguous axial images were obtained through the brain without the use of intravenous contrast. INDICATION: Change in mental status. Confusion. FINDINGS: The ventricles are normal in size, shape and position. There is no acute parenchymal hemorrhage, edema or mass. There is no extra-axial mass or hemorrhage. There is no bony abnormality. IMPRESSION: No abnormality is seen. Dictated by: Dictated on workstation # [id number]
[2018-02-25 18:43] LABS: AMPHETAMINE SCREEN, URINE NEGATIVE (NEGATIVE); BARBITURATE SCREEN URINE NEGATIVE (NEGATIVE); BENZODIAZEPINES SCREEN URINE NEGATIVE (NEGATIVE); CANNABINOID SCREEN, URINE NEGATIVE (NEGATIVE); COCAINE SCREEN URINE NEGATIVE (NEGATIVE); METHADONE STAT NEGATIVE (NEGATIVE); METHAMPHETAMINE SCREEN URINE S NEGATIVE (NEGATIVE); OPIATE SCREEN URINE NEGATIVE (NEGATIVE); OXYCODONE STAT NEGATIVE (NEGATIVE); PROPOXYPHENE STAT NEGATIVE (NEGATIVE); TRICYCLIC ANTIDEPRESSANTS SCRE NEGATIVE (NEGATIVE)
[2018-02-25 18:53] LABS: TSH (THYROID ANALYZER) 1.27 UIU/ML (0.35-4.94)
[2018-02-25 20:55] VITALS: BP 179/79
--- OUTSIDE RECORDS SUMMARY | 2018-02-25 22:34 | XMS REPORT | Continuity of Care Document ---
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, RI 07/11/2017 CANNON DO, CASPER Ot J18.9 PNEUMONIA, UNSPECIFIED ORGANISM 07/11/2017 CANNON DO, CASPER Ot R53.81 OTHER MALAISE 07/11/2017 CANNON DO, CASPER Ot R79.89 OTHER SPECIFIED ABNORMAL FINDINGS OF BLO 07/11/2017 CANNON DO, CASPER Ot R94.31 ABNORMAL ELECTROCARDIOGRAM [ECG] [EKG] 07/11/2017 CANNON DO, CASPER Ot Z79.899 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 EXPERIMENTAL AIRCRAFT MECHANIC (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 THERAPY 07/11/2017 CANNON DO, CASPER Ot Z91.19 PATIENT'S NONCOMPLIANCE W [facility] MEDICAL TR 07/14/2017 Maia Rasmussen MD18.9 Pneumonia 07/14/2017 Maia Rasmussen MD 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 07/27/2017 DONAVAN, VERONICA L DONOR SUPPORT TECHNICIAN Ot I51.7 CARDIOMEGALY 07/27/2017 DONAVAN, VERONICA L DONOR SUPPORT TECHNICIAN Ot R91.8 OTHER NONSPECIFIC ABNORMAL FINDING OF GORDO 07/30/2017 DONAVAN, VERONICA L DONOR SUPPORT TECHNICIAN Ot I51.7 CARDIOMEGALY 07/30/2017 DONAVAN, VERONICA L DONOR SUPPORT TECHNICIAN Ot R91.8 OTHER NONSPECIFIC ABNORMAL FINDING OF GORDO 08/13/2017 DONAVAN, VERONICA L DONOR SUPPORT TECHNICIAN Ot I51.7 CARDIOMEGALY 08/13/2017 DONAVAN, VERONICA L DONOR SUPPORT TECHNICIAN Ot R91.8 OTHER NONSPECIFIC ABNORMAL FINDING OF GORDO 08/24/2017 Maia Rasmussen MD E03.8 Hypothyroidism, other specified 08/24/2017 Maia Rasmussen MD R63.6 Underweight 08/24/2017 Maia Rasmussen MD Z00.00 Wellness exam 08/24/2017 Maia Ramsussen MD Z68.1 Body mass index (BMI) 19 or less, adult 09/04/2017 Maia Rasmussen MD E63.9 Nutritional deficiency 09/04/2017 Maia Rasmussen MD G31.84 Mild cognitive impairment 09/04/2017 Maia Rasmussne MD 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 09/04/2017 Maia Rasmussen MD I25.10 CAD 09/22/2017 DONAVANVERONICA BLACKWELL L DONOR SUPPORT TECHNICIAN Ot I51.7 CARDIOMEGALY 09/22/2017 DONAVAN, VERONICA L DONOR SUPPORT TECHNICIAN Ot R91.8 OTHER NONSPECIFIC ABNORMAL FINDING OF [...] - 07/10/17 15:00 Bacterial blood culture NG [facility] Blood lactic acid measurement (moles/volume) - 07/10/17 15:11 Blood lactic acid measurement (moles/volume) 0.87 mmol/L 0.50-2.00 THYROID STIMULATING HORMONE - 07/10/17 15:11 THYROID STIMULATING HORMONE 0.47 u[iU]/mL 0.35-4.94 Serum or plasma thyroxine (T4) free measurement (mass/volume) - 07/10/17 15:11 Serum or plasma thyroxine (T4) free measurement (mass/volume) 0.84 ng/dL 0.70-1.48 Bacterial blood culture - 07/10/17 15:11 Bacterial blood culture NG [facility] Complete blood count (CBC) with automated white [...] Status Pt. Type Provider Facility Loc./Unit Complaint [id number] 11/02/2017 13:13:01 ACT Unknown Maia Rasmussen MD [id number] 09/22/2017 08:19:00 09/22/2017 23:59:59 CLS Preadmit MAIA RASMUSSEN MD [facility] RAD PNEUMONIA J18.9 [id number] 07/24/2017 09:36:00 07/24/2017 23:59:59 CLS Outpatient VERONICA GO APRN [facility] RAD RT PULMONARY NODULE [id number] 07/10/2017 13:19:00 07/11/2017 16:05:00 DIS Inpatient CASPER CANNON DO [facility] 4TH BILAT PNA [id number] 11/06/2017 07:39:44 ACT Document Registration [id number] 12/20/2015 19:10:31 12/20/2015 19:10:31 Outpatient
[2018-02-25] MEDS ORDERED: NS IV 1000 ML 1,000 ML ONE (23:33)
[2018-02-25] MEDS ORDERED: ONDANSETRON 4 MG/2 ML (SDV) Z0FRAN IV PRN (23:45)
[2018-02-25] MEDS ORDERED: ACETAMINOPHEN 325 MG TABLET PO PRN (23:45)
[2018-02-25] MEDS: NS IV 1000 ML 1,000 ML IV SCH (23:45)
[2018-02-26 00:05] VITALS: BP 168/84
[2018-02-26 04:00] VITALS: BP 145/67
[2018-02-26 06:11] LABS: BASOPHILS % (AUTO) 1 % (0-10); EOSINOPHILS # (AUTO) 0.1 10^3/uL (0.0-0.3); EOSINOPHILS % (AUTO) 2 % (0-10); HEMATOCRIT 39 % (35-52); HEMOGLOBIN 13.4 G/DL (11.5-16.0); LYMPHOCYTES # (AUTO) 0.6 X 10^3 (1.0-4.0); LYMPHOCYTES % (AUTO) 15 % (12-44); MEAN CORPUSCULAR HEMOGLOBIN 33 PG (25-34); MEAN CORPUSCULAR HGB CONC 34 G/DL (32-36); MEAN CORPUSCULAR VOLUME 95 FL (80-99); MEAN PLATELET VOLUME 11.3 FL (7.4-10.4); MONOCYTES # (AUTO) 0.5 X 10^3 (0.0-1.0); MONOCYTES % (AUTO) 13 % (0-12); NEUTROPHILS # (AUTO) 2.7 X 10^3 (1.8-7.8); NEUTROPHILS % (AUTO) 70 % (42-75); PLATELET COUNT 119 10^3/uL (130-400); RED CELL DISTRIBUTION WIDTH 14.2 % (10.0-14.5); WHITE BLOOD COUNT 3.9 10^3/uL (4.3-11.0)
[2018-02-26 06:28] LABS: ALANINE AMINOTRANSFERASE 25 U/L (0-55); ALBUMIN 3.4 GM/DL (3.2-4.5); ALKALINE PHOSPHATASE 47 U/L (40-136); BILIRUBIN,TOTAL 0.8 MG/DL (0.1-1.0); BUN/CREATININE RATIO 25; CALCIUM 8.4 MG/DL (8.5-10.1); CARBON DIOXIDE 22 MMOL/L (21-32); CHLORIDE 105 MMOL/L (98-107); CREATININE SERUM 0.84 MG/DL (0.60-1.30); GFR ESTIMATED > 60; GLUCOSE 75 MG/DL (70-105); SODIUM 137 MMOL/L (135-145); TOTAL PROTEIN 6.4 GM/DL (6.4-8.2)
[2018-02-26 08:00] VITALS: BP 141/63
[2018-02-26] MEDS ORDERED: FLU QUADRIvalent (5+ YOA) 2018-2019 (AFLURIA) 0.5 ML IM ONE (08:00)
--- NOTE | 2018-02-26 11:46 | Short Stay Summary-Hospitalist ---
History of Present Illness HPI/Chief Complaint CC: Confusion HPI: This is a 77-year-old white female known to me from admission in July 2017 for pneumonia that was sent to the ER by the police due to wandering about town and the highway getting in peoples cars for rides. She had significant short-term memory recall issues when I saw her in July but she was noncompliant with my recommendations and quickly requested discharge to go home. Her primary care provider is distention noted. We are in the midst of screening her for [facility] admission as long as power of regulatory attorney is obtained. At this current time she has such short term recall dysfunction I'm really unable to have any significant conversation with the patient. Source: patient, family, RN/MD Exam Limitations: no limitations Date Seen 02/26/18 Time Seen by a Provider: 11:00 Attending Physician Francy Olivier DO PCP Akshat Nava MD Referring Physician Date of Admission Feb 25, 2018 at 22:20 Home Medications & Allergies Home Medications Reviewed patient Home Medication Reconciliation performed by pharmacy medication reconciliations nutrition technician and/or nursing. Patients Allergies have been reviewed. Allergies Allergies Coded Allergies No Known Drug Allergies (Rhjresrsos94/18/18) Past Cxmljke-Ahpuvm-Fjmdop Hx Past Med/Social Hx: Reviewed Nursing Past Med/Soc Hx, Reviewed and Corrections made Patient Social History Marrital Status: single Employed/Student: retired Alcohol Use: Denies Use Recreational Drug Use: No Smoking Status: Never a Smoker Physical Abuse Screen: No Sexual Abuse: No Recent Foreign Travel: No Contact w/other who traveled: No Recent Hopitalizations: No Recent Infectious Disease Expo: No Immunizations Up To Date Date of Pneumonia Vaccine: Feb 09, 2017 Date of Influenza Vaccine: Feb 09, 2017 Seasonal Allergies Seasonal Allergies: Yes Past Medical History Neurological: Paralysis, Stroke Musculoskeletal: Arthritis HEENT: Chronic Eye Infection Loss of Vision: Right Hearing Impairment: Denies Psychosocial: Suicide Attempts History of Blood Disorders: No Review of Systems Constitutional: see HPI EENTM: no symptoms reported Respiratory: no symptoms reported Cardiovascular: no symptoms reported Gastrointestinal: no symptoms reported Genitourinary: no symptoms reported Musculoskeletal: no symptoms reported Skin: no symptoms reported Psychiatric/Neurological: Other Physical Exam Physical Exam Vital Signs Vital Signs - First Documented 02/25/18 16:55 Temp 98.0 Pulse 75 Resp 16 B/P (MAP) 136/69 (91) Pulse Ox 99 O2 Delivery Room Air Capillary Refill : Less Than 3 Seconds Height, Weight, BMI Height: 5'3.00" Weight: 93lbs. 5.0oz. 42.291046xv; 16.5 BMI Method:Stated General Appearance: No Apparent Distress, WD/WN Eyes: Bilateral Eye Normal Inspection, Bilateral Eye PERRL HEENT: Pharynx Normal, Other (right eye patch intact along with right sided facial paralysis) Neck: Full Range of Motion, Normal Inspection, Non Tender, Supple, Carotid Bruit Respiratory: Chest Non Tender, Lungs Clear, Normal Breath Sounds, No Accessory Muscle Use, No Respiratory Distress Cardiovascular: Regular Rate, Rhythm, No Edema, No Gallop, No JVD, No Murmur, Normal Peripheral Pulses Gastrointestinal: Normal Bowel Sounds, No Organomegaly, No Pulsatile Mass, Non Tender, Soft Back: Normal Inspection, No CVA Tenderness, No Vertebral Tenderness Extremity: Normal Capillary Refill, Normal Inspection, Normal Range of Motion, Non Tender, No Calf Tenderness, No Pedal Edema Neurologic/Psychiatric: Alert, No Motor/Sensory Deficits, Normal Mood/Affect, Disoriented, Facial Droop Skin: Normal Color, Warm/Dry Lymphatic: No Adenopathy Results Results/Procedures Labs Laboratory Tests 02/25/18 18:10 02/26/18 05:51 Patient resulted labs reviewed. Short Stay Diagnosis Discharge Diagnosis-Short Stay Admission Diagnosis Assessment: Altered mental status placing her at risk for harm wandering the streets and highway Chronic right sided facial droop from remote stroke Chronic right eye conjunctivitis History of pneumonia History of elevated BNP July 2017 Final Discharge Diagnosis Assessment: Altered mental status placing her at risk for harm wandering the streets and highway Chronic right sided facial droop from remote stroke Chronic right eye conjunctivitis History of pneumonia History of elevated BNP July 2017 Conclusion Plan Plan: [facility] admit is recommended Poor prognosis Diagnosis/Problems Diagnosis/Problems (1) Altered mental status Status: Acute Qualifiers: Qualified Codes: R41.82 - Altered mental status, unspecified (2) Weakness on right side of face Status: Chronic (3) Conjunctivitis Status: Chronic Qualifiers: Qualified Codes: H10.401 - Unspecified chronic conjunctivitis, right eye (4) Dementia Status: Chronic Qualifiers: Qualified Codes: G30.9 - Alzheimer's disease, unspecified; F02.81 - Dementia in other diseases classified elsewhere with behavioral disturbance Clinical Quality Measures DVT/VTE Risk/Contraindication: Risk Factor Score Per Nursin RFS Level Per Nursing on Admit: 2=Moderate FRANCY OLIVIER DO Feb 26, 2018 11:46
[2018-02-26 12:00] VITALS: BP 140/70
[2018-02-26] MEDS: NS IV 1000 ML 1,000 ML IV SCH (13:00)
[2018-02-26 13:51] VITALS: BP 140/70
== END 2018-02-26 15:31 ==
LOC: EDUNIT# 16:09 → ER 16:10 → 4TH 22:20
PROVIDERS: ADMIT Internal Medicine; ATTEND Internal Medicine
DX: R41.82 Altered mental status, unspecified (principal); M62.81 Muscle weakness (generalized); H10.401 Unspecified chronic conjunctivitis, right eye; G30.9 Alzheimer's disease, unspecified; F02.81 Dementia in other diseases classified elsewhere, unspecified severity, with behavioral disturbance; R64 Cachexia; Z86.73 Personal history of transient ischemic attack (TIA), and cerebral infarction without residual deficits
CPT/HCPCS: 36415; 70450; 80053; 80306; 80320; 80329; 81000; 84443; 85025; 96360; G0378

== ENCOUNTER 2018-09-26 10:22 | Inpatient (IN) | payer MEDICARE ==
[~2018-09-26] VITALS: Ht 157.5 cm; Wt 48.1 kg
--- OUTSIDE RECORDS SUMMARY | 2018-09-26 10:27 | XMS REPORT | Clinical Summary ---
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 Rocio Maguire PROBATE JUDGE Profound vision impairment, one eye, impairment level not further specified CAD 414.00 Active Rocio Maguire PROBATE JUDGE Coronary atherosclerosis of unspecified type of vessel, rampart or graft Nutritional deficiency 269.9 Active Rocio Maguire PROBATE JUDGE Unspecified nutritional deficiency Mild cognitive impairment 331.83 Active Rocio Maguire PROBATE JUDGE Mild cognitive impairment, so stated Cerebral palsy 343.9 10/02/2016 Active Shilpa Dudley Helms PROBATE JUDGE Infantile cerebral palsy, unspecified Medication List Medication Instructions Start Date Stop Date Generic Name NDC Status Provider Patient Instruction NYSTATIN 804737 UNIT/ML MOUTH/THROAT SUSPENSION 5 ml (swish and swallow) 4 times a day NYSTATIN 37650288325 Active lCary Brock MA Active ASPIRIN 81 MG TBEC Take one (1) tablet by mouth daily ASPIRIN 54044555658 Active Akshat Nava MD Active CEFDINIR 300 MG ORAL CAPSULE 1 tab BID CEFDINIR 38160881107 No Longer Active Akshat Nava MD Active CALCIUM 500 + D3 500-600 MG-UNIT ORAL TABLET 1 tab daily CALCIUM CARB-CHOLECALCIFEROL 49453421009 Active Akshat Nava MD Active CALCIUM ASCORBATE 500 MG ORAL TABLET 1 tab daily CALCIUM ASCORBATE 58548950040 Active Akshat Nava MD Active DESONIDE 0.05 % EXTERNAL LOTION one application to forehead two times daily DESONIDE 12343491349 Active Akshat Nava MD Active CALCIUM HIGH POTENCY/VITAMIN D 600-200 MG-UNIT ORAL TABLET 2 daily CALCIUM CARBONATE-VITAMIN D 51448814377 No Longer Active Bridgett Guadarrama APRN Active CYCLOBENZAPRINE HCL 10 MG ORAL TABLET 1/2 - 1 tablet by mouth three times daily as needed for muscle spasm/pain CYCLOBENZAPRINE HCL 89544769485 No Longer Active Bridgett Guadarrama APRN Active CYCLOBENZAPRINE HCL 10 MG ORAL TABLET 1/2 - 1 tablet by mouth three times daily as needed for muscle spasm/pain CYCLOBENZAPRINE HCL 10 MG ORAL TABLET 072081 CYCLOBENZAPRINE HCL Inactive CALCIUM HIGH POTENCY/VITAMIN D 600-200 MG-UNIT ORAL TABLET 2 daily CALCIUM HIGH POTENCY/VITAMIN D 600-200 MG-UNIT ORAL TABLET 840226 CALCIUM CARBONATE- VITAMIN D Inactive CEFDINIR 300 MG ORAL CAPSULE 1 tab BID CEFDINIR 300 MG ORAL CAPSULE 008367 CEFDINIR Inactive Advance Directives Directive Description Start [...] temperature weight E&M 91.0 [lb_av] Weight Measured Diagnostic Results Date Name Value Unit Range Description Lab Report: CBC - Hematology leukocyte count, blood 3.5 10^3/MM^3 10*3/mm3 4.6-10.2 erythrocyte (RBC) count 5.04 10^6/MM^3 10*6/mm3 3.80-5.80 hemoglobin, blood 16.1 g/dL 12.0-16.0 hematocrit, blood 48.1 % 37.0-47.0 mean corpuscular volume, RBC 95 fL 80-97 mean corpuscular hemoglobin, RBC 31.9 pg 27.0-31.2 mean corpuscular hemoglobin concentration, RBC 33.4 G/DL % 31.8-35.4 red blood cell distribution width 13.5 % 11.6-14.8 platelet count 142 10^3/MM^3 10*3/mm3 142-424 Lab Report: Lipid Panel, Thyroid Stimulating Hormone (L), Comp. Metaboli ... - Chemistry cholesterol, serum 219 mg/dL 354-231 5530/04/16 triglyceride, serum, fasting 50 mg/dL 30-200 HDL cholesterol, serum 91 mg/dL 32-60 LDL cholesterol, serum 118 mg/dL 0-130 TSH 0.83 m[iU]/mL 0.36-3.74 sodium, serum 140 mmol/L 608-130 9955/04/16 carbon dioxide, venous blood 31.6 mmol/L 21.0-32.0 [...] 0.00-1.00 Encounters Code Encounter Date Provider Facility CPT-29515 Level 3 Est. Patient 17:04:38 CDT Akshat Nava MD [facility] CPT-43658 Level 3 Est. Patient 13:54:25 CDT Akshat Nava MD [facility] CPT-03181 Level 4 New Patient 15:40:56 CDT Bridgett Chiara PAK [facility] CPT-46652 Level 2 New Patient 22:03:35 FISCAL AGENT Sherry Haq MD PhD [facility] -[facility] Procedures Code Procedure Name Date Entry Date Standard Description CPT-G0438 Initial Annual Wellness Exam 17:04:38 CDT CPT-TCMM Transitional Care Mgmt-Moderate 15:44:55 FISCAL AGENT CPT-46064 Chest, 2 views 15:05:04 FISCAL AGENT CPT-65279 EKG Trac and Interp - XRAY USE ONLY 12:44:15 CDT CPT-68432 Chest 2V Frontal and Lat - XRAY USE ONLY 12:44:15 CDT
--- OUTSIDE RECORDS SUMMARY | 2018-09-26 10:32 | XMS REPORT | Continuity of Care Document ---
Author Organization Unknown Address Unknown Allergies There is no data. Medications There is no data. 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 Results Test Result Range LIPID PANEL - 09/02/18 09:36 CHOLESTEROL, TOTAL 159 mg/dL <200 HDL CHOLESTEROL 59 mg/dL >50 TRIGLYCERIDES 79 mg/dL <150 LDL-CHOLESTEROL 83 mg/dL (calc) NRG CHOL/HDLC RATIO 2.7 (calc) <5.0 NON HDL CHOLESTEROL 100 mg/dL (calc) <130 CMP - 09/02/18 09:36 GLUCOSE 91 mg/dL 65-99 UREA NITROGEN (BUN) 14 mg/dL 7-25 CREATININE 0.73 mg/dL 0.60-0.93 eGFR NON-AFR. GRENADIAN 78 mL/min/1.73m2 > OR=60 eGFR 91 mL/min/1.73m2 > OR=60 BUN/CREATININE RATIO NOT APPLICABLE (calc) 6-22 SODIUM 142 mmol/L 135-146 POTASSIUM 3.8 mmol/L 3.5-5.3 CHLORIDE 104 mmol/L 98-110 CARBON DIOXIDE 31 mmol/L 20-32 CALCIUM 8.3 mg/dL 8.6-10.4 PROTEIN, TOTAL 6.7 g/dL 6.1-8.1 ALBUMIN 3.4 g/dL 3.6-5.1 GLOBULIN 3.3 g/dL (calc) 1.9-3.7 ALBUMIN/GLOBULIN RATIO 1.0 (calc) 1.0-2.5 BILIRUBIN, TOTAL 0.5 mg/dL 0.2-1.2 ALKALINE PHOSPHATASE 65 U/L 33-130 AST 19 U/L 10-35 ALT 9 U/L 6-29 CBC - 09/02/18 09:36 WHITE BLOOD CELL COUNT 4.7 Thousand/uL 3.8-10.8 RED BLOOD CELL COUNT 4.28 Million/uL 3.80-5.10 HEMOGLOBIN 13.8 g/dL 11.7-15.5 HEMATOCRIT 40.7 % 35.0-45.0 MCV 95.1 fL 80.0-100.0 MCH 32.2 pg 27.0-33.0 MCHC 33.9 g/dL 32.0-36.0 RDW 13.6 % 11.0-15.0 PLATELET COUNT 157 Thousand/uL 140-400 MPV 11.4 fL 7.5-12.5 ABSOLUTE NEUTROPHILS 3854 cells/uL 4312-6998 ABSOLUTE LYMPHOCYTES 428 cells/uL 850-3900 ABSOLUTE MONOCYTES 320 cells/uL 200-950 ABSOLUTE EOSINOPHILS 71 cells/uL 15-500 ABSOLUTE BASOPHILS 28 cells/uL 0-200 NEUTROPHILS 82 % NRG LYMPHOCYTES 9.1 % NRG MONOCYTES 6.8 % NRG EOSINOPHILS 1.5 % NRG BASOPHILS 0.6 % NRG TSH - 09/02/18 09:36 TSH 3.14 mIU/L 0.40-4.50 Encounters ACCT No. Visit Date/Time Discharge Status Pt. Type Provider Facility Loc./Unit Complaint [id number] 09/21/2018 17:45:00 09/21/2018 23:59:59 [facility] Outpatient MARK WANG [facility] [id number] 09/02/2018 17:45:00 Document Registration [id number] 11/02/2017 13:13:01 ACT Unknown Brandy MONROE, Akshat
--- NOTE | 2018-09-26 11:29 | ED General ---
General Stated Complaint: UTI, PT HASNT BEEN EATING OR DRINKING History of Present Illness Date Seen by Provider: September 26, 2018 Time Seen by Provider: 11:30 Initial Comments Patient is a 78-year-old female who [place] the emergency department [place]. Patient had recently been treated for urinary tract infection. residential staff reported that the patient had been eating and drinking less compared to baseline. She has not had significant change in mental status. The patient did not have any documented fevers. On arrival to ER, the patient has no specific complaints but she is noted to be hypotensive. Allergies and Home Medications Allergies Coded Allergies: No Known Drug Allergies (Unverified , 02/25/18) Patient Home Medication List Home Medication List Reviewed: Yes Review of Systems Review of Systems Constitutional: no symptoms reported EENTM: no symptoms reported Respiratory: no symptoms reported Cardiovascular: no symptoms reported Gastrointestinal: no symptoms reported Genitourinary: no symptoms reported Musculoskeletal: no symptoms reported Skin: no symptoms reported All Other Systems Reviewed Negative Unless Noted: Yes Past Rndkoia-Fngioi-Madkao Hx Patient Social History Recent Hopitalizations: No Immunizations Up To Date Date of Pneumonia Vaccine: Feb 09, 2017 Date of Influenza Vaccine: Feb 09, 2017 Seasonal Allergies Seasonal Allergies: Yes Past Medical History Surgeries: Yes (RIGHT EYE SURGERY) Respiratory: No Cardiac: No (denies) Neurological: Yes (rt facial drooping; per pt "nerve damage") Paralysis, Stroke Genitourinary: No (denies) Gastrointestinal: No (denies) Musculoskeletal: Yes Arthritis Endocrine: No (denies) HEENT: Yes Chronic Eye Infection Loss of Vision: Right Hearing Impairment: Denies Cancer: No Psychosocial: Yes Suicide Attempts Integumentary: No Blood Disorders: No Physical Exam Vital Signs Vital Signs - First Documented 09/26/18 10:40 Temp 96.2 Pulse 94 Resp 16 B/P (MAP) 102/55 (71) Pulse Ox 98 O2 Delivery Room Air Capillary Refill : Height, Weight, BMI Height: 5'3.00" Weight: 93lbs. 5.0oz. 42.927131oy; 16.5 BMI Method:Stated General Appearance: No Apparent Distress (frail elderly female) HEENT: Other (right eye is extremely exophthalmic and has conjunctival irritation with hazing of the cornea. Mucous membranes are dry) Neck: Other (no JVD) Respiratory: Chest Non Tender, Lungs Clear, Normal Breath Sounds Cardiovascular: No Edema Gastrointestinal: Normal Bowel Sounds Extremity: Normal Capillary Refill Neurologic/Psychiatric: Alert (baseline mental status according to family who are at the bedside) Skin: Normal Color, Warm/Dry Focused Exam Lactate Level 09/26/18 11:35: Lactic Acid Level 1.35 Lactic Acid Level Laboratory Tests Test 09/26/18 11:35 Lactic Acid Level 1.35 MMOL/L (0.50-2.00) Progress/Results/Core Measures Suspected Sepsis SIRS Temperature: Pulse: Respiratory Rate: Laboratory Tests 09/26/18 11:35: White Blood Count 7.3 Blood Pressure / Mean: 09/26/18 11:35: Lactic Acid Level 1.35 Laboratory Tests 09/26/18 11:35: Creatinine 1.82H, Platelet Count 210 Results/Orders Lab Results Laboratory Tests Test 09/26/18 11:35 09/26/18 12:34 Range/Units White Blood Count 7.3 4.3-11.0 10^3/uL Red Blood Count 4.25 L 4.35-5.85 10^6/uL Hemoglobin 13.3 11.5-16.0 G/DL Hematocrit 41 35-52 % Mean Corpuscular Volume 96 80-99 FL Mean Corpuscular Hemoglobin 31 25-34 PG Mean Corpuscular Hemoglobin Concent 33 32-36 G/DL Red Cell Distribution Width 14.8 H 10.0-14.5 % Platelet Count 210 130-400 10^3/uL Mean Platelet Volume 10.8 H 7.4-10.4 FL Neutrophils (%) (Auto) 88 H 42-75 % Lymphocytes (%) (Auto) 6 L 12-44 % Monocytes (%) (Auto) 4 0-12 % Eosinophils (%) (Auto) 1 0-10 % Basophils (%) (Auto) 1 0-10 % Neutrophils # (Auto) 6.4 1.8-7.8 X 10^3 Lymphocytes # (Auto) 0.5 L 1.0-4.0 X 10^3 Monocytes # (Auto) 0.3 0.0-1.0 X 10^3 Eosinophils # (Auto) 0.1 0.0-0.3 10^3/uL Basophils # (Auto) 0.0 0.0-0.1 10^3/uL Neutrophils % (Manual) 82 % Lymphocytes % (Manual) 7 % Monocytes % (Manual) 2 % Eosinophils % (Manual) 0 % Basophils % (Manual) 0 % Band Neutrophils 9 % Blood Morphology Comment NORMAL Sodium Level 145 135-145 MMOL/L Potassium Level 3.8 3.6-5.0 MMOL/L Chloride Level 103 98-107 MMOL/L Carbon Dioxide Level 26 21-32 MMOL/L Anion Gap 16 H 5-14 MMOL/L Blood Urea Nitrogen 73 H 7-18 MG/DL Creatinine 1.82 H 0.60-1.30 MG/DL Estimat Glomerular Filtration Rate 27 BUN/Creatinine Ratio 40 Glucose Level 134 H 70-105 MG/DL Lactic Acid Level 1.35 0.50-2.00 MMOL/L Calcium Level 9.0 8.5-10.1 MG/DL Troponin T 49 H <=10 NG/L Urine Color YELLOW Urine Clarity SL CLOUDY Urine pH 6.0 5-9 Urine Specific [place] 1.010 L 1.016-1.022 Urine Protein TRACE NEGATIVE Urine Glucose (UA) NEGATIVE NEGATIVE Urine Ketones NEGATIVE NEGATIVE Urine Nitrite NEGATIVE NEGATIVE Urine Bilirubin NEGATIVE NEGATIVE Urine Urobilinogen 0.2 NORMAL MG/DL Urine Leukocyte Esterase 1+ H NEGATIVE Urine RBC (Auto) 1+ H NEGATIVE Urine RBC 2-5 H /HPF Urine WBC 10-25 H /HPF Urine Squamous Epithelial Cells RARE /HPF Urine Renal Epithelial Cells RARE /HPF Urine Crystals PRESENT H /LPF Urine Amorphous Sediment FEW JENY URATES H /LPF Urine Bacteria FEW H /HPF Urine Casts NONE /LPF Urine Mucus NEGATIVE /LPF Urine Culture Indicated YES My Orders Orders - JAYSHREE DELA CRUZ DO Ns Iv 500 Ml (Sodium Chloride 0.9%) (09/26/18 11:00) Cbc With Automated Diff (09/26/18 10:59) Basic Metabolic Panel (09/26/18 10:59) Blood Culture (09/26/18 10:59) Lactic Acid Analyzer (09/26/18 10:59) Urinalysis (09/26/18 10:59) Straight Cath (Urinary) (09/26/18 10:59) Chest 1 View Ap/Pa Only (09/26/18 11:03) Troponin T (09/26/18 11:25) Ekg Tracing (09/26/18 11:25) Manual Differential (09/26/18 11:35) Ekg Tracing (09/26/18 12:15) Ns Iv 500 Ml (Sodium Chloride 0.9%) (09/26/18 12:30) Urine Culture (09/26/18 12:34) Ceftriaxone For Iv Use (Rocephin For I (09/26/18 13:30) Ns Iv 1000 Ml (Sodium Chloride 0.9%) (09/26/18 13:45) Vital Signs/I&O 09/26/18 10:40 Temp 96.2 Pulse 94 Resp 16 B/P (MAP) 102/55 (71) Pulse Ox 98 O2 Delivery Room Air Capillary Refill : Progress Note : Time: 11:28 Progress Note Patient is seen and examined. She is sleeping but arouses. She does not have any specific complaints. She is frail and elderly. The pressure is noted to be 87 systolic. IV fluids are ordered along with lactate and blood cultures. We'll do chest x-ray, troponin, EKG. 13:30: In the emergency department, the patient initially had blood pressure of 83 systolic. She was given a total of 1 L normal saline and this improved. Her pressures after the fluid bolus were in the 110's. Sheet as noted in the emergency department to have urinary tract infection. She also has mild elevation of her troponin. Her creatinine is also noted to be elevated. Her last normal creatinine was from February of last year. Suspect the patient to be dehydrated and have some demand ischemia as well as acute kidney injury. She was given 1 g of Rocephin IV in the emergency department along with fluids mentioned previously. EKG did not reveal any acute changes concerning for STEMI. The patient will be transferred to [facility] in [place]. I spoke to Dr. Ayala who did accept the patient for transfer. The patient's family was at the bedside and all parties were agreeable to this plan of care. Patient did not have elevated lactate or leukocytosis. Do not feel that she meets sepsis criteria. Rather, she was most likely hypotensive because of her dehydration. Departure Impression Primary Impression: Acute kidney injury Additional Impressions: Elevated troponin Urinary tract infection Disposition: XFER SHT-TRM HOSP Condition: Improved Admissions Decision to Admit Reason: Admit from ER (General) Decision to Admit/Date: September 26, 2018 Time/Decision to Admit Time: 12:00 Transfer Time Spoke to Accepting Phy: 12:45 Transfer Progress Notes Spoke to Dr. Ayala who will primarily accept the patient for admission to [facility]. Departure-Patient Inst. Referrals: MAIA RASMUSSEN MD (PCP/Family) Primary Care Physician JAYSHREE DELA CRUZ DO September 26, 2018 11:29
[2018-09-26] MEDS: NS IV 500 ML 500 ML IV SCH ×4 (11:35→17:22)
[2018-09-26 11:51] LABS: BASOPHILS % (AUTO) 1 % (0-10); EOSINOPHILS % (AUTO) 1 % (0-10); HEMATOCRIT 41 % (35-52); HEMOGLOBIN 13.3 G/DL (11.5-16.0); LYMPHOCYTES % (AUTO) 6 % (12-44); MEAN CORPUSCULAR HEMOGLOBIN 31 PG (25-34); MEAN CORPUSCULAR HGB CONC 33 G/DL (32-36); MEAN CORPUSCULAR VOLUME 96 FL (80-99); MEAN PLATELET VOLUME 10.8 FL (7.4-10.4); MONOCYTES % (AUTO) 4 % (0-12); NEUTROPHILS % (AUTO) 88 % (42-75); PLATELET COUNT 210 10^3/uL (130-400); RED CELL DISTRIBUTION WIDTH 14.8 % (10.0-14.5); WHITE BLOOD COUNT 7.3 10^3/uL (4.3-11.0)
[2018-09-26 11:52] LABS: EOSINOPHILS # (AUTO) 0.1 10^3/uL (0.0-0.3); LYMPHOCYTES # (AUTO) 0.5 X 10^3 (1.0-4.0); MONOCYTES # (AUTO) 0.3 X 10^3 (0.0-1.0); NEUTROPHILS # (AUTO) 6.4 X 10^3 (1.8-7.8)
--- NOTE | 2018-09-26 12:05 | Diagnostic Imaging Report ---
INDICATION: Nonverbal, urinary tract infection, not eating or drinking. TECHNIQUE: Single-view chest, 11:31 a.m. CORRELATION STUDY: 07/10/2017. FINDINGS: Heart size and mediastinum are generally stable. 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 Scattered areas of asymmetric pleural-parenchymal density is noted. This is most pronounced at the lung apices. Additional scar-like formation about the right upper lung field. Minimal density in the right mid lung field is unchanged. Previously noted infiltrate at the right lung base has resolved. A definitive new infiltrate is not demonstrated. No appreciable effusion. IMPRESSION: 1. Resolution of the previously noted areas of bibasilar infiltrate. A definitive superimposed infiltrate is not suggested on followup. Rather marked severity fibroemphysematous changes are again demonstrated. Slightly spiculated density in the right mid lung field does persist. Neoplasm not excluded. Dictated by: Dictated on workstation # [id number]
[2018-09-26 12:08] LABS: CREATININE SERUM 1.82 MG/DL (0.60-1.30); POTASSIUM 3.8 MMOL/L (3.6-5.0)
[2018-09-26 12:23] LABS: BAND NEUTROPHILS 9 %; BASOPHILS % (MANUAL) 0 %; EOSINOPHILS % (MANUAL) 0 %; LYMPHOCYTES % (MANUAL) 7 %; MONOCYTES % (MANUAL) 2 %; NEUTROPHILS % (MANUAL) 82 %; RBC MORPH NORMAL
[2018-09-26 12:47] LABS: CLARITY,URINE SL CLOUDY; COLOR,URINE YELLOW; PROTEIN,URINE TRACE (NEGATIVE)
[2018-09-26 12:48] LABS: AMORPHOUS SEDIMENT,UR FEW AMOR URATES /LPF; BACTERIA,URINE FEW /HPF; BILIRUBIN,URINE NEGATIVE (NEGATIVE); GLUCOSE, URINE (UA) NEGATIVE (NEGATIVE); KETONES,URINE NEGATIVE (NEGATIVE); LEUKOCYTE ESTERASE ,URINE 1+ (NEGATIVE); NITRITE,URINE NEGATIVE (NEGATIVE); RENAL EPITHELIAL CELLS,URINE RARE /HPF; SQUAMOUS EPITHELIAL CELL,UR RARE /HPF; UROBILINOGEN,URINE 0.2 MG/DL (NORMAL)
[2018-09-26] MEDS ORDERED: cefTRIAXone FOR IV USE 1,000 MG in WATER (STERILE) FOR INJECTION 10 ML IV ONE (13:30)
[2018-09-26] MEDS: NS IV 1000 ML 1,000 ML IV SCH ×2 (13:38→17:21)
--- OUTSIDE RECORDS SUMMARY | 2018-09-26 14:01 | XMS REPORT | Continuity of Care Document ---
[...] 7-25 CREATININE 0.73 mg/dL 0.60-0.93 eGFR NON-AFR. MAURITIAN 78 mL/min/1.73m2 > OR=60 eGFR 91 mL/min/1.73m2 [...] 11.4 fL 7.5-12.5 ABSOLUTE NEUTROPHILS 3854 cells/uL 4376-6000 ABSOLUTE LYMPHOCYTES 428 cells/uL 850-3900 ABSOLUTE MONOCYTES 320 cells/uL 200-950 ABSOLUTE EOSINOPHILS 71 cells/uL 15-500 ABSOLUTE BASOPHILS 28 cells/uL 0-200 NEUTROPHILS 82 % NRG LYMPHOCYTES 9.1 % NRG MONOCYTES 6.8 % NRG EOSINOPHILS 1.5 % NRG BASOPHILS 0.6 % NRG TSH - 09/02/18 09:36 TSH 3.14 mIU/L 0.40-4.50 Encounters ACCT No. Visit Date/Time Discharge Status Pt. Type Provider Facility Loc./Unit Complaint [id number] 09/21/2018 17:45:00 09/21/2018 23:59:59 [facility] Outpatient MARK WANG [facility] [id number] 09/02/2018 17:45:00 Document Registration [id number] 11/02/2017 13:13:01 ACT Unknown Brandy MONROE, Akshat
--- NOTE | 2018-09-26 14:47 | NUR ---
1410: [facility] on a transfer to [place], will not return for at least 3 hours. [facility] called, they will have a crew here in 30-40 minutes to take patient to [facility].
--- NOTE | 2018-09-26 15:00 | NUR ---
[facility] here to transport patient to [facility] [place] [place].
--- NOTE | 2018-09-26 16:05 | NUR ---
MELLISSA SPENCE admitted to room 411-1, with an admitting diagnosis of ACUTE RENAL FAILURE AND ELEVATED TROPONIN, on 09/26/18 from [facility] via [facility], accompanied by [facility]. MELLISSA SPENCE introduced to surroundings, call light, bed controls, phone, TV, temperature control, lights, meal times, smoking policy, visitor policy, side rail policy, bathrooms and showers. Patient Rights given to patient in the handbook. MELLISSA SPENCE verbalizes understanding that [facility] is not responsible for the loss or damage to any personal effects or valuables that are kept in the patients possession during their hospitalization. The following Patient Care Plans were discussed with the PATIENT: Discharge Planning, ACUTE RENAL FAILURE(DEHYDRATION),URINARY TRACT INFECTION and KNOWLEDGE DEFICIT. MELLISSA SPENCE verbalizes understanding of Interdisciplinary Patient Education. Patient and/or family were informed about the Rapid Response Team and its purpose.
[2018-09-26 16:23] VITALS: BP 143/64
[2018-09-26 16:25] VITALS: BP 143/64
--- NOTE | 2018-09-26 17:00 | NUR ---
PATIENT IS GOING TO WAIT TO SET UP A PASSWORD UNTIL HER DAUGHTER (DPOA) COMES TO VISIT.
[2018-09-26 20:01] VITALS: BP 134/65
--- NOTE | 2018-09-26 21:32 | Progress Note-Hospitalist ---
Progress Note 78 yo female from [place] accepted in transfer from [facility] for hypotension, mental status changes and dehydration. CRYSTAL WASHBURN MD September 26, 2018 21:32
[2018-09-27 00:24] VITALS: BP 136/64
[2018-09-27 04:49] VITALS: BP 136/93
[2018-09-27 05:36] LABS: BASOPHILS % (AUTO) 1 % (0-10); EOSINOPHILS # (AUTO) 0.1 10^3/uL (0.0-0.3); EOSINOPHILS % (AUTO) 1 % (0-10); HEMATOCRIT 36 % (35-52); HEMOGLOBIN 11.6 G/DL (11.5-16.0); LYMPHOCYTES # (AUTO) 0.4 X 10^3 (1.0-4.0); LYMPHOCYTES % (AUTO) 6 % (12-44); MEAN CORPUSCULAR HEMOGLOBIN 31 PG (25-34); MEAN CORPUSCULAR HGB CONC 33 G/DL (32-36); MEAN CORPUSCULAR VOLUME 95 FL (80-99); MEAN PLATELET VOLUME 10.6 FL (7.4-10.4); MONOCYTES # (AUTO) 0.4 X 10^3 (0.0-1.0); MONOCYTES % (AUTO) 7 % (0-12); NEUTROPHILS % (AUTO) 85 % (42-75); PLATELET COUNT 168 10^3/uL (130-400); WHITE BLOOD COUNT 5.9 10^3/uL (4.3-11.0)
[2018-09-27 05:55] LABS: ALANINE AMINOTRANSFERASE 32 U/L (0-55); ALBUMIN 2.4 GM/DL (3.2-4.5); ALKALINE PHOSPHATASE 123 U/L (40-136); BILIRUBIN,TOTAL 0.2 MG/DL (0.1-1.0); BUN/CREATININE RATIO 42; CALCIUM 7.8 MG/DL (8.5-10.1); CARBON DIOXIDE 18 MMOL/L (21-32); CHLORIDE 115 MMOL/L (98-107); CREATININE SERUM 1.23 MG/DL (0.60-1.30); GFR ESTIMATED 42; GLUCOSE 90 MG/DL (70-105); POTASSIUM 3.4 MMOL/L (3.6-5.0); SODIUM 144 MMOL/L (135-145); TOTAL PROTEIN 5.7 GM/DL (6.4-8.2)
[2018-09-27 08:00] VITALS: BP 150/70
[2018-09-27] MEDS: NS IV 1000 ML 1,000 ML IV SCH ×2 (08:24→23:42)
[2018-09-27] MEDS ORDERED: RISP1TAB3 PO (09:02)
[2018-09-27] MEDS ORDERED: NEO/3.5O OU (09:02)
[2018-09-27] MEDS ORDERED: AMOX1TAB12 PO (09:02)
[2018-09-27] MEDS ORDERED: SELE207S7 TOP (09:02)
[2018-09-27] MEDS ORDERED: PEG15DRO5 OU (09:02)
[2018-09-27] MEDS ORDERED: [UNRECOGNIZED DRUG - CODE] PO (09:02)
[2018-09-27] MEDS ORDERED: TRAZ-222 PO (09:02)
[2018-09-27] MEDS ORDERED: MIRT15TA6 PO (09:02)
[2018-09-27] MEDS ORDERED: DEXT15DR21 OU ×2 (09:02→09:03)
--- NOTE | 2018-09-27 09:04 | NUR ---
UPDATED MED REC WITH MAR ON THE PATIENTS CHART.
[2018-09-27 12:00] VITALS: BP 145/63
--- NOTE | 2018-09-27 14:46 | NUR ---
While approaching pt's room I could hear her repeating "help" in a low tone. Pt requested that she be moved from her chair and her "urine paper" be removed out from under her. Pt also said her mouth was dry and demonstrated inability to drink through a straw. I pushed her call light and stayed with her until the POLYGRAPH TECHNICIAN and RN arrived. I facilitated communication and offered respectful support though active listening and calming presence.
--- NOTE | 2018-09-27 14:59 | History & Physical-Hospitalist ---
History of Present Illness HPI/Chief Complaint The patient is a 78-year-old white female resident of a nursing facility in [place]. She was sent by the facility to the [facility] emergency room. Apparently she had been recently treated for a urinary tract infection. The longterm staff reported that she been eating and drinking less over the day or so prior to this. She is demented and not very interactive so her mental status was not greatly changed. Her appetite appeared to be diminished. Creatinine was 1.8 to at the emergency room and after hydration here is 1.23. UA showed 10-25 WBCs per high-powered field. Source: RN/MD Date Seen 09/27/18 Time Seen by a Provider: 15:01 Attending Physician Charissa Ayala MD PCP Akshat Nava MD Referring Physician Date of Admission September 26, 2018 at 13:52 Home Medications & Allergies Home Medications Reviewed patient Home Medication Reconciliation performed by pharmacy medication reconciliations boiler service technician and/or nursing. Patients Allergies have been reviewed. Allergies Allergies Coded Allergies No Known Drug Allergies (Rdpwrgyevo83/18/18) Past Xpeodoi-Gkueof-Ckkrgd Hx Past Med/Social Hx: Reviewed Nursing Past Med/Soc Hx Patient Social History Alcohol Use: Denies Use Recreational Drug Use: No Smoking Status: Never a Smoker 2nd Hand Smoke Exposure: No Physical Abuse Screen: No Sexual Abuse: No Recent Foreign Travel: No Contact w/other who traveled: No Recent Hopitalizations: No Recent Infectious Disease Expo: No Immunizations Up To Date Date of Pneumonia Vaccine: Feb 09, 2017 Date of Influenza Vaccine: Feb 09, 2017 Seasonal Allergies Seasonal Allergies: Yes Past Medical History Neurological: Paralysis, Stroke Musculoskeletal: Arthritis HEENT: Chronic Eye Infection Loss of Vision: Right Hearing Impairment: Denies Psychosocial: Suicide Attempts History of Blood Disorders: No Family History Patient reports no known family medical history. Review of Systems ROS-Unable to Obtain: patient is very somnolent and a nonproductiv to questioning Constitutional: see HPI Physical Exam Physical Exam Vital Signs Vital Signs - First Documented 09/26/18 10:40 Temp 96.2 Pulse 94 Resp 16 B/P (MAP) 102/55 (71) Pulse Ox 98 O2 Delivery Room Air Capillary Refill : Less Than 3 Seconds Height, Weight, BMI Height: 5'2.00" Weight: 107lbs. 5.0oz. 48.472963fq; 19.1 BMI Method:Stated General Appearance: Other Eyes: Bilateral Eye Normal Inspection HEENT: Normal ENT Inspection Neck: Full Range of Motion, Normal Inspection, Non Tender Respiratory: Chest Non Tender, Lungs Clear, Normal Breath Sounds, No Accessory Muscle Use, No Respiratory Distress Cardiovascular: Regular Rate, Rhythm, No Edema, No Gallop, No JVD, No Murmur, Normal Peripheral Pulses Extremity: No Pedal Edema Results Results/Procedures Labs Laboratory Tests 09/26/18 11:35 09/27/18 04:55 09/27/18 05:10 Patient resulted labs reviewed. Assessment/Plan Admission Diagnosis 1.altered mental status. 2.acute renal failure/dehydration. 3.recurrent urinary tract infection. Admission Status: Observation Assessment and Plan Continue fluid replacement and IV antibiotics Clinical Quality Measures DVT/VTE Risk/Contraindication: Risk Factor Score Per Nursin RFS Level Per Nursing on Admit: 4+=Very High ANOOP BRASHER MD September 27, 2018 14:59
[2018-09-27 16:00] VITALS: BP 156/67
[2018-09-27 20:00] VITALS: BP 172/62
[2018-09-28] VITALS: BP 163/70
[2018-09-28 04:54] VITALS: BP 156/72
[2018-09-28 08:00] VITALS: BP 136/68
[2018-09-28 12:00] VITALS: BP 187/88
--- NOTE | 2018-09-28 13:36 | NUR ---
CM/SS spoke with the patient's daughter (Rut) for discharge planning. Patient resides at [facility] in [facility]. [facility] will transport this day between 5-6, when she is available. [facility] is aware of the discharge. RNing will call [facility] to give report.
--- NOTE | 2018-09-28 14:24 | Progress Note-Hospitalist ---
Progress Note Progress Notes/Assess & Plan Date Seen 09/28/18 Time Seen by Provider: 14:18 Assessment & Plan The patient is more alert today than yesterday. She is lying on her left side and her eyes are open. The right eye appears to have a tremendous exophthalmos. The conjunctiva of both eyes is very injected. She is contracted at the elbows and knees. She does not speak to me. Lungs are clear to auscultation. CV is regular. Impression: Advanced dementia. Note: Her admission was predicated on the thought that she might have a urinary tract infection/sepsis. Blood cultures are negative. White count remains normal. She has been afebrile. Urine cultures are negative as well. Accordingly the patient will be discharged. See discharge sequence for medications and routines. Focused Exam Lactate Level 09/26/18 11:35: Lactic Acid Level 1.35 ANOOP BRASHER MD September 28, 2018 14:24
[2018-09-28 16:01] VITALS: BP 137/64
--- NOTE | 2018-09-28 16:42 | Discharge Inst-Simple/Standard ---
Discharge Inst-Standard Patient Instructions/Follow Up Plan of Care/Instructions/FU: Medications as listed in the discharge sequence. Previous diet and routines. The patient had negative cultures for UTI. Activity as Tolerated: Yes Goal: Return to previous status Discharge Diet: No Restrictions ANOOP BRASHER MD September 28, 2018 16:42
[2018-09-28 17:00] VITALS: BP 137/64
--- NOTE | 2018-09-28 17:22 | NUR ---
CALLED REPORT TO [facility] [phone]. RN IS GONE FOR THE DAY. REPORT GIVEN TO MANNY. Addendum: 09/28/18 at 1724 by DAVID ZEE RN MANNY'S NAME IS CRIS.
== END 2018-09-28 17:00 | DRG 683 ==
LOC: EDUNIT# 10:22 → ER FS 10:24 → 4TH 13:52
PROVIDERS: ADMIT Internal Medicine; ATTEND Internal Medicine
DX: N17.9 Acute kidney failure, unspecified (principal); E86.0 Dehydration; I24.8 Other forms of acute ischemic heart disease; R79.89 Other specified abnormal findings of blood chemistry; J30.2 Other seasonal allergic rhinitis; R54 Age-related physical debility; R29.810 Facial weakness; I69.869 Other paralytic syndrome following other cerebrovascular disease affecting unspecified side; Z66 Do not resuscitate; H05.20 Unspecified exophthalmos; M19.91 Primary osteoarthritis, unspecified site; Z91.5 Personal history of self-harm
CPT/HCPCS: 36415; 71045; 80048; 80053; 81000; 82962; 83605; 84484; 85007; 85025; 85027; 87040; 87088; 93005; 96361; 96365

== ENCOUNTER 2018-10-04 22:30 | Emergency (ER) | payer MEDICARE ==
[~2018-10-04] VITALS: Ht 162.6 cm; Wt 45.4 kg
[~2018-10-04 22:30] MED LIST changes: +AMOX1TAB12 PO; +DEXT15DR21 OU; +MIRT15TA6 PO; +NEO/3.5O OU; +PEG15DRO5 OU; +RISP1TAB3 PO; +SELE207S7 TOP; +TRAZ-222 PO; +[UNRECOGNIZED DRUG - CODE] PO
--- OUTSIDE RECORDS SUMMARY | 2018-10-04 22:40 | XMS REPORT | Continuity of Care Document ---
Author Organization Unknown Address Unknown Allergies Active Description Code Type Severity Reaction Onset Reported/Identified Relationship to Patient Clinical Status Yes No Allergy Information Available [id number] Drug Allergy Unknown N/A 07/10/2017 Yes No Known Drug Allergies [id number] Drug Allergy Unknown N/A 02/25/2018 Medications There is no data. 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, RI 07/11/2017 CANNON DO, CASPER Ot J18.9 PNEUMONIA, UNSPECIFIED ORGANISM 07/11/2017 CANNON DO, CASPER Ot R53.81 OTHER MALAISE 07/11/2017 CANNON DO, CASPER Ot R79.89 OTHER SPECIFIED ABNORMAL FINDINGS OF BLO 07/11/2017 CANNON DO, CASPER Ot R94.31 ABNORMAL ELECTROCARDIOGRAM [ECG] [EKG] 07/11/2017 CANNON DO, CASPER Ot Z79.899 OTHER PRISON (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 THERAPY 07/11/2017 CANNON DO, CASPER Ot Z91.19 PATIENT'S NONCOMPLIANCE W [facility] 07/11/2017 CANNON DO, CASPER Ot 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, RI 07/11/2017 CANNON DO, CASPER Ot J18.9 PNEUMONIA, UNSPECIFIED ORGANISM 07/11/2017 CANNON DO, CASPER Ot R53.81 OTHER MALAISE 07/11/2017 CANNON DO, CASPER Ot R79.89 OTHER SPECIFIED ABNORMAL FINDINGS OF BLO 07/11/2017 CANNON DO, CASPER Ot R94.31 ABNORMAL ELECTROCARDIOGRAM [ECG] [EKG] 07/11/2017 CANNON DO, CASPER Ot Z79.899 OTHER PRISON (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 THERAPY 07/11/2017 CANNON DO, CASPER Ot Z91.19 PATIENT'S NONCOMPLIANCE W [facility] 07/14/2017 Maia Rasmussen MD J18.9 Pneumonia 07/14/2017 Maia Rasmussen MD 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 07/27/2017 DONAVAN, VERONICA L OPERATIONS AND INTELLIGENCE ASSISTANT Ot I51.7 CARDIOMEGALY 07/27/2017 DONAVAN, VERONICA L OPERATIONS AND INTELLIGENCE ASSISTANT Ot R91.8 OTHER NONSPECIFIC ABNORMAL FINDING OF GORDO 07/30/2017 DONAVAN, VERONICA L OPERATIONS AND INTELLIGENCE ASSISTANT Ot I51.7 CARDIOMEGALY 07/30/2017 DONAVAN, VERONICA L OPERATIONS AND INTELLIGENCE ASSISTANT Ot R91.8 OTHER NONSPECIFIC ABNORMAL FINDING OF GORDO 08/13/2017 DONAVAN, VERONICA L OPERATIONS AND INTELLIGENCE ASSISTANT Ot I51.7 CARDIOMEGALY 08/13/2017 DONAVAN, VERONICA L OPERATIONS AND INTELLIGENCE ASSISTANT Ot R91.8 OTHER NONSPECIFIC ABNORMAL FINDING OF [...] Rasmussen MD I25.10 CAD 09/22/2017 DONAVANVERONICA BLACKWELL OPERATIONS AND INTELLIGENCE ASSISTANT Ot I51.7 CARDIOMEGALY 09/22/2017 VERONICA GO OPERATIONS AND INTELLIGENCE ASSISTANT Ot R91.8 OTHER NONSPECIFIC ABNORMAL FINDING OF GORDO 02/25/2018 DONAVAN, VERONICA L OPERATIONS AND INTELLIGENCE ASSISTANT Ot I51.7 CARDIOMEGALY 02/25/2018 DONAVAN, VERONICA L OPERATIONS AND INTELLIGENCE ASSISTANT Ot R91.8 OTHER NONSPECIFIC ABNORMAL FINDING OF GORDO 02/26/2018 DAVIS COELHO CASPER Ot F02.81 DEMENTIA IN [facility] DISEASES CLASSD ELSWHR W 02/26/2018 DAVIS COELHO CASPER Ot G30.9 ALZHEIMER'S DISEASE, UNSPECIFIED 02/26/2018 DAVIS COELHO CASPER Ot H10.401 UNSPECIFIED CHRONIC CONJUNCTIVITIS, RIGH 02/26/2018 DAVIS COELHO CASPER Ot M62.81 MUSCLE WEAKNESS (GENERALIZED) 02/26/2018 CANNON DO, CASPER Ot R41.82 ALTERED MENTAL STATUS, UNSPECIFIED 02/26/2018 CANNON DO, CASPER Ot R64 CACHEXIA 02/26/2018 CANNON DO, CASPER Ot Z86.73 PRSNL HX OF TIA (TIA), AND CEREB INFRC W 02/26/2018 CANNON DO, CASPER Ot F02.81 DEMENTIA IN OTH DISEASES CLASSD ELSWHR W 02/26/2018 CANNON DO, CASPER Ot G30.9 ALZHEIMER'S DISEASE, UNSPECIFIED 02/26/2018 CANNON DO, CASPER Ot H10.401 UNSPECIFIED CHRONIC CONJUNCTIVITIS, RIGH 02/26/2018 CANNON DO, CASPER Ot M62.81 MUSCLE WEAKNESS (GENERALIZED) 02/26/2018 CANNON DO, CASPER Ot R41.82 ALTERED MENTAL STATUS, UNSPECIFIED 02/26/2018 CANNON DO, CASPER Ot R64 CACHEXIA 02/26/2018 CANNON DO, CASPER Ot Z86.73 PRSNL HX OF TIA (TIA), AND CEREB INFRC W 03/05/2018 CANNON DO, CASPER Ot F02.81 DEMENTIA IN OTH DISEASES CLASSD ELSWHR W 03/05/2018 CANNON DO, CASPER Ot G30.9 ALZHEIMER'S DISEASE, UNSPECIFIED 03/05/2018 CANNON DO, CASPER Ot H10.401 UNSPECIFIED CHRONIC CONJUNCTIVITIS, RIGH 03/05/2018 CANNON DO, CASPER Ot M62.81 MUSCLE WEAKNESS (GENERALIZED) 03/05/2018 CANNON DO, CASPER Ot R41.82 ALTERED MENTAL STATUS, UNSPECIFIED 03/05/2018 CANNON DO, CASPER Ot R64 CACHEXIA 03/05/2018 CANNON DO, CASPER Ot Z86.73 PRSNL HX OF TIA (TIA), AND CEREB INFRC W 09/28/2018 MADDISON MONROE, CRYSTAL Ballard Ot E86.0 DEHYDRATION 09/28/2018 MADDISON MONROE, CRYSTAL Ballard Ot I24.8 OTHER FORMS OF ACUTE ISCHEMIC HEART DISE 09/28/2018 MADDISON MONROE, CRYSTAL Ballard Ot 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 09/28/2018 CRYSTAL WASHBURN MD Ot J30.2 OTHER SEASONAL ALLERGIC RHINITIS 09/28/2018 CRYSTAL WASHBURN MD, Ot M19.91 PRIMARY OSTEOARTHRITIS, UNSPECIFIED SITE 09/28/2018 CRYSTAL WASHBURN MD, Ot N17.9 ACUTE KIDNEY FAILURE, UNSPECIFIED 09/28/2018 CRYSTAL WASHBURN MD, Ot N39.0 URINARY TRACT INFECTION, SITE NOT SPECIF 09/28/2018 CRYSTAL WASHBURN MD, Ot R29.810 FACIAL WEAKNESS 09/28/2018 CRYSTAL WASHBURN MD, Ot R54 AGE-RELATED PHYSICAL DEBILITY 09/28/2018 CRYSTAL WASHBURN MD, Ot R79.89 OTHER SPECIFIED ABNORMAL FINDINGS OF BLO 09/28/2018 CRYSTAL WASHBURN MD, Ot Z91.5 PERSONAL HISTORY OF SELF-HARM Procedures There is no data. Results Test [...] Automated erythrocyte mean corpuscular hemoglobin concentration measurement (mass/volume) 33 g/dL 32-36 Automated erythrocyte distribution width ratio 13.6 % 10.0- 14.5 Automated blood platelet count (count/volume) 235 10*3/uL [...] Blood monocytes automated count (number/volume) 0.5 10*3 0.0- 1.0 Automated eosinophil count 0.0 10*3/uL 0.0-0.3 Automated [...] Serum or plasma aspartate aminotransferase measurement (enzymatic activity/volume) 21 U/L 5-34 Serum or plasma alanine aminotransferase measurement (enzymatic activity/volume) 14 U/L 0-55 Serum or plasma protein measurement (mass/volume) 7.1 g/dL 6.4-8.2 Serum or plasma albumin measurement (mass/volume) 3.3 g/dL 3.2-4.5 Serum or plasma troponin i.cardiac measurement (mass/volume) - 07/10/17 12:42 Serum or plasma troponin i.cardiac measurement (mass/volume) < ng/mL <0.30 Serum or plasma lithium measurement (moles/volume) - 07/10/17 12:42 BNP level 225.5 pg/mL <100.0 Bacterial blood culture - 07/10/17 15:00 Bacterial blood culture NG NRG Blood lactic acid measurement (moles/volume) - 07/10/17 15:11 Blood lactic acid measurement (moles/volume) 0.87 mmol/L 0.50- 2.00 THYROID STIMULATING HORMONE - 07/10/17 15:11 THYROID STIMULATING HORMONE 0.47 u[iU]/mL 0.35-4.94 Serum or plasma thyroxine (T4) free measurement (mass/volume) - 07/10/17 15:11 Serum or plasma thyroxine (T4) free measurement (mass/volume) 0.84 ng/dL 0.70-1.48 Bacterial blood culture - 07/10/17 15:11 Bacterial blood culture NG NRG Complete blood count (CBC) with automated white [...] Automated erythrocyte mean corpuscular hemoglobin concentration measurement (mass/volume) 34 g/dL 32-36 Automated erythrocyte distribution width ratio 13.5 % 10.0- 14.5 Automated blood platelet count (count/volume) 223 10*3/uL [...] Blood monocytes automated count (number/volume) 0.5 10*3 0.0- 1.0 Automated eosinophil count 0.1 10*3/uL 0.0-0.3 Automated [...] Serum or plasma aspartate aminotransferase measurement (enzymatic activity/volume) 27 U/L 5-34 Serum or plasma alanine aminotransferase measurement (enzymatic activity/volume) 14 U/L 0-55 Serum or plasma protein measurement (mass/volume) 6.8 g/dL 6.4-8.2 Serum or plasma albumin measurement (mass/volume) 3.0 g/dL 3.2-4.5 Complete blood count (CBC) with automated white blood cell (WBC) differential - 02/25/18 18:10 Blood leukocytes automated count (number/volume) 4.7 10*3/uL 4.3-11.0 Blood erythrocytes automated count (number/volume) 4.59 10*6/uL 4.35-5.85 Venous blood hemoglobin measurement (mass/volume) 14.6 g/dL 11.5-16.0 Blood hematocrit (volume fraction) 43 % 35-52 Automated erythrocyte mean corpuscular volume 95 [foz_us] 80-99 Automated erythrocyte mean corpuscular hemoglobin (mass per erythrocyte) 32 pg 25-34 Automated erythrocyte mean corpuscular hemoglobin concentration measurement (mass/volume) 34 g/dL 32-36 Automated erythrocyte distribution width ratio 14.4 % 10.0- 14.5 Automated blood platelet count (count/volume) 135 10*3/uL 130-400 Automated blood platelet mean volume measurement 11.1 [foz_us] 7.4-10.4 Automated blood neutrophils/100 leukocytes 79 % 42-75 Automated blood lymphocytes/100 leukocytes 10 % 12-44 Blood monocytes/100 leukocytes 10 % 0-12 Automated blood eosinophils/100 leukocytes 1 % 0-10 Automated blood basophils/100 leukocytes 0 % 0-10 Blood neutrophils automated count (number/volume) 3.7 10*3 1.8-7.8 Blood lymphocytes automated count (number/volume) 0.5 10*3 1.0-4.0 Blood monocytes automated count (number/volume) 0.5 10*3 0.0- 1.0 Automated eosinophil count 0.0 10*3/uL 0.0-0.3 Automated blood basophil count (count/volume) 0.0 10*3/uL 0.0-0.1 Comprehensive metabolic panel - 02/25/18 18:10 Serum or plasma sodium measurement (moles/volume) 137 mmol/L 135-145 Serum or plasma potassium measurement (moles/volume) 4.9 mmol/L 3.6-5.0 Serum or plasma chloride measurement (moles/volume) 101 mmol/L 98-107 Carbon dioxide 26 mmol/L 21-32 Serum or plasma anion gap determination (moles/volume) 10 mmol/L 5-14 Serum or plasma urea nitrogen measurement (mass/volume) 26 mg/dL 7-18 Serum or plasma creatinine measurement (mass/volume) 0.87 mg/dL 0.60-1.30 Serum or plasma urea nitrogen/creatinine mass ratio 30 NRG Serum or plasma creatinine measurement with calculation of estimated glomerular filtration rate > NRG Serum or plasma glucose measurement (mass/volume) 91 mg/dL 70-105 Serum or plasma calcium measurement (mass/volume) 9.3 mg/dL 8.5-10.1 Serum or plasma total bilirubin measurement (mass/volume) 1.1 mg/dL 0.1-1.0 Serum or plasma alkaline phosphatase measurement (enzymatic activity/volume) 51 U/L 40-136 Serum or plasma aspartate aminotransferase measurement (enzymatic activity/volume) 45 U/L 5-34 Serum or plasma alanine aminotransferase measurement (enzymatic activity/volume) 27 U/L 0-55 Serum or plasma protein measurement (mass/volume) 7.6 g/dL 6.4-8.2 Serum or plasma albumin measurement (mass/volume) 3.8 g/dL 3.2-4.5 CALCIUM CORRECTED 9.5 mg/dL 8.5-10.1 Serum or plasma thyrotropin measurement by detection limit <=0.05 miu/l (units/volume) - 02/25/18 18:10 Serum or plasma thyrotropin measurement by detection limit <=0.05 miu/l (units/volume) 1.27 u[iU]/mL 0.35-4.94 Serum or plasma salicylates measurement (mass/volume) - 02/25/18 18:10 Serum or plasma salicylates measurement (mass/volume) < mg/dL 5.0-20.0 Serum or plasma acetaminophen measurement (mass/volume) - 02/25/18 18:10 Serum or plasma acetaminophen measurement (mass/volume) < ug/mL 10-30 Serum or plasma ethanol measurement (mass/volume) - 02/25/18 18:10 Serum or plasma ethanol measurement (mass/volume) < mg/dL <10 Complete urinalysis with reflex to culture - 02/25/18 18:20 Urine color determination YELLOW NRG Urine clarity determination CLEAR NRG Urine pH measurement by test strip 6.5 5-9 Specific gravity of urine by test strip 1.015 1.016-1.022 Urine protein assay by test strip, semi-quantitative NEGATIVE NEGATIVE Urine glucose detection by automated test strip NEGATIVE NEGATIVE Erythrocytes detection in urine sediment by light microscopy NEGATIVE NEGATIVE Urine ketones detection by automated test strip NEGATIVE NEGATIVE Urine nitrite detection by test strip NEGATIVE NEGATIVE Urine total bilirubin detection by test strip NEGATIVE NEGATIVE Urine urobilinogen measurement by automated test strip (mass/volume) NORMAL NORMAL Urine leukocyte esterase detection by dipstick NEGATIVE NEGATIVE Automated urine sediment erythrocyte count by microscopy (number/high power field) NONE NRG Automated urine sediment leukocyte count by microscopy (number/high power field) NONE NRG Bacteria detection in urine sediment by light microscopy NONE NRG Squamous epithelial cells detection in urine sediment by light microscopy RARE NRG Crystals detection in urine sediment by light microscopy NONE NRG Casts detection in urine sediment by light microscopy PRESENT NRG Mucus detection in urine sediment by light microscopy NEGATIVE NRG Complete urinalysis with reflex to culture NO NRG Hyaline casts detection in urine sediment by light microscopy RARE NRG Urine drug screening test - 02/25/18 18:20 Urine phencyclidine detection by screening method NEGATIVE NEGATIVE Urine benzodiazepines detection by screening method NEGATIVE NEGATIVE Urine cocaine detection NEGATIVE NEGATIVE Urine amphetamines detection by screening method NEGATIVE NEGATIVE Urine methamphetamine detection by screening method NEGATIVE NEGATIVE Urine cannabinoids detection by screening method NEGATIVE NEGATIVE Urine opiates detection by screening method NEGATIVE NEGATIVE Urine barbiturates detection NEGATIVE NEGATIVE Screening urine tricyclic antidepressants detection NEGATIVE NEGATIVE Urine methadone detection by screening method NEGATIVE NEGATIVE Urine oxycodone detection NEGATIVE NEGATIVE Urine propoxyphene detection NEGATIVE NEGATIVE Complete blood count (CBC) with automated white blood cell (WBC) differential - 02/26/18 05:51 Blood leukocytes automated count (number/volume) 3.9 10*3/uL 4.3-11.0 Blood erythrocytes automated count (number/volume) 4.10 10*6/uL 4.35-5.85 Venous blood hemoglobin measurement (mass/volume) 13.4 g/dL 11.5-16.0 Blood hematocrit (volume fraction) 39 % 35-52 Automated erythrocyte mean corpuscular volume 95 [foz_us] 80-99 Automated erythrocyte mean corpuscular hemoglobin (mass per erythrocyte) 33 pg 25-34 Automated erythrocyte mean corpuscular hemoglobin concentration measurement (mass/volume) 34 g/dL 32-36 Automated erythrocyte distribution width ratio 14.2 % 10.0- 14.5 Automated blood platelet count (count/volume) 119 10*3/uL 130-400 Automated blood platelet mean volume measurement 11.3 [foz_us] 7.4-10.4 Automated blood neutrophils/100 leukocytes 70 % 42-75 Automated blood lymphocytes/100 leukocytes 15 % 12-44 Blood monocytes/100 leukocytes 13 % 0-12 Automated blood eosinophils/100 leukocytes 2 % 0-10 Automated blood basophils/100 leukocytes 1 % 0-10 Blood neutrophils automated count (number/volume) 2.7 10*3 1.8-7.8 Blood lymphocytes automated count (number/volume) 0.6 10*3 1.0-4.0 Blood monocytes automated count (number/volume) 0.5 10*3 0.0- 1.0 Automated eosinophil count 0.1 10*3/uL 0.0-0.3 Automated blood basophil count (count/volume) 0.0 10*3/uL 0.0-0.1 Comprehensive metabolic panel - 02/26/18 05:51 Serum or plasma sodium measurement (moles/volume) 137 mmol/L 135-145 Serum or plasma potassium measurement (moles/volume) 4.0 mmol/L 3.6-5.0 Serum or plasma chloride measurement (moles/volume) 105 mmol/L 98-107 Carbon dioxide 22 mmol/L 21-32 Serum or plasma anion gap determination (moles/volume) 10 mmol/L 5-14 Serum or plasma urea nitrogen measurement (mass/volume) 21 mg/dL 7-18 Serum or plasma creatinine measurement (mass/volume) 0.84 mg/dL 0.60-1.30 Serum or plasma urea nitrogen/creatinine mass ratio 25 NRG Serum or plasma creatinine measurement with calculation of estimated glomerular filtration rate > NRG Serum or plasma glucose measurement (mass/volume) 75 mg/dL 70-105 Serum or plasma calcium measurement (mass/volume) 8.4 mg/dL 8.5-10.1 Serum or plasma total bilirubin measurement (mass/volume) 0.8 mg/dL 0.1-1.0 Serum or plasma alkaline phosphatase measurement (enzymatic activity/volume) 47 U/L 40-136 Serum or plasma aspartate aminotransferase measurement (enzymatic activity/volume) 37 U/L 5-34 Serum or plasma alanine aminotransferase measurement (enzymatic activity/volume) 25 U/L 0-55 Serum or plasma protein measurement (mass/volume) 6.4 g/dL 6.4-8.2 Serum or plasma albumin measurement (mass/volume) 3.4 g/dL 3.2-4.5 CALCIUM CORRECTED 8.9 mg/dL 8.5-10.1 LIPID PANEL - 09/02/18 09:36 CHOLESTEROL, TOTAL 159 mg/dL <200 HDL CHOLESTEROL 59 mg/dL >50 TRIGLYCERIDES 79 mg/dL <150 LDL-CHOLESTEROL 83 mg/dL (calc) NRG CHOL/HDLC RATIO 2.7 (calc) <5.0 NON HDL CHOLESTEROL 100 mg/dL (calc) <130 CMP - 09/02/18 09:36 GLUCOSE 91 mg/dL 65-99 UREA NITROGEN (BUN) 14 mg/dL 7-25 CREATININE 0.73 mg/dL 0.60-0.93 eGFR NON-AFR. [place] 78 mL/min/1.73m2 > OR=60 eGFR 91 mL/min/1.73m2 [...] 11.4 fL 7.5-12.5 ABSOLUTE NEUTROPHILS 3854 cells/uL 1307-8195 ABSOLUTE LYMPHOCYTES 428 cells/uL 850-3900 ABSOLUTE MONOCYTES 320 cells/uL 200-950 ABSOLUTE EOSINOPHILS 71 cells/uL 15-500 ABSOLUTE BASOPHILS 28 cells/uL 0-200 NEUTROPHILS 82 % NRG LYMPHOCYTES 9.1 % NRG MONOCYTES 6.8 % NRG EOSINOPHILS 1.5 % NRG BASOPHILS 0.6 % NRG TSH - 09/02/18 09:36 TSH 3.14 mIU/L 0.40-4.50 CULTURE, URINE - 09/21/18 13:32 CULTURE, URINE, ROUTINE SEE NOTE NRG Complete blood count (CBC) with automated white blood cell (WBC) differential - 09/26/18 11:35 Blood leukocytes automated count (number/volume) 7.3 10*3/uL 4.3-11.0 Blood erythrocytes automated count (number/volume) 4.25 10*6/uL 4.35-5.85 Venous blood hemoglobin measurement (mass/volume) 13.3 g/dL 11.5-16.0 Blood hematocrit (volume fraction) 41 % 35-52 Automated erythrocyte mean corpuscular volume 96 [foz_us] 80-99 Automated erythrocyte mean corpuscular hemoglobin (mass per erythrocyte) 31 pg 25-34 Automated erythrocyte mean corpuscular hemoglobin concentration measurement (mass/volume) 33 g/dL 32-36 Automated erythrocyte distribution width ratio 14.8 % 10.0- 14.5 Automated blood platelet count (count/volume) 210 10*3/uL 130-400 Automated blood platelet mean volume measurement 10.8 [foz_us] 7.4-10.4 Automated blood neutrophils/100 leukocytes 88 % 42-75 Automated blood lymphocytes/100 leukocytes 6 % 12-44 Blood monocytes/100 leukocytes 4 % 0-12 Automated blood eosinophils/100 leukocytes 1 % 0-10 Automated blood basophils/100 leukocytes 1 % 0-10 Blood neutrophils automated count (number/volume) 6.4 10*3 1.8-7.8 Blood lymphocytes automated count (number/volume) 0.5 10*3 1.0-4.0 Blood monocytes automated count (number/volume) 0.3 10*3 0.0- 1.0 Automated eosinophil count 0.1 10*3/uL 0.0-0.3 Automated blood basophil count (count/volume) 0.0 10*3/uL 0.0-0.1 Blood lactic acid measurement (moles/volume) - 09/26/18 11:35 Blood lactic acid measurement (moles/volume) 1.35 mmol/L 0.50- 2.00 Whole blood basic metabolic panel - 09/26/18 11:35 Serum or plasma sodium measurement (moles/volume) 145 mmol/L 135-145 Serum or plasma potassium measurement (moles/volume) 3.8 mmol/L 3.6-5.0 Serum or plasma chloride measurement (moles/volume) 103 mmol/L 98-107 Carbon dioxide 26 mmol/L 21-32 Serum or plasma anion gap determination (moles/volume) 16 mmol/L 5-14 Serum or plasma urea nitrogen measurement (mass/volume) 73 mg/dL 7-18 Serum or plasma creatinine measurement (mass/volume) 1.82 mg/dL 0.60-1.30 Serum or plasma urea nitrogen/creatinine mass ratio 40 NRG Serum or plasma creatinine measurement with calculation of estimated glomerular filtration rate 27 NRG Serum or plasma glucose measurement (mass/volume) 134 mg/dL 70-105 Serum or plasma calcium measurement (mass/volume) 9.0 mg/dL 8.5-10.1 TROPONIN T - 09/26/18 11:35 TROPONIN T 49 % <=10 Blood manual differential performed detection - 09/26/18 11:35 Blood monocytes/100 leukocytes 2 % NRG Manual blood segmented neutrophils/100 leukocytes 82 % NRG Blood band neutrophils/100 leukocytes 9 % NRG Manual blood lymphocytes/100 leukocytes 7 % NRG Manual eosinophils/100 leukocytes in nose 0 % NRG Manual blood basophils/100 leukocytes 0 % NRG Blood erythrocyte morphology finding identification NORMAL NRG Bacterial blood culture - 09/26/18 11:35 Bacterial blood culture NG NRG Complete urinalysis with reflex to culture - 09/26/18 12:34 Urine color determination YELLOW NRG Urine clarity determination SL CLOUDY NRG Urine pH measurement by test strip 6.0 5-9 Specific gravity of urine by test strip 1.010 1.016-1.022 Urine protein assay by test strip, semi-quantitative TRACE NEGATIVE Urine glucose detection by automated test strip NEGATIVE NEGATIVE Erythrocytes detection in urine sediment by light microscopy 1+ NEGATIVE Urine ketones detection by automated test strip NEGATIVE NEGATIVE Urine nitrite detection by test strip NEGATIVE NEGATIVE Urine total bilirubin detection by test strip NEGATIVE NEGATIVE Urine urobilinogen measurement by automated test strip (mass/volume) 0.2 mg/dL NORMAL Urine leukocyte esterase detection by dipstick 1+ NEGATIVE Automated urine sediment erythrocyte count by microscopy (number/high power field) [HPF] NRG Automated urine sediment leukocyte count by microscopy (number/high power field) [HPF] NRG Bacteria detection in urine sediment by light microscopy FEW NRG Squamous epithelial cells detection in urine sediment by light microscopy RARE NRG Crystals detection in urine sediment by light microscopy PRESENT NRG Casts detection in urine sediment by light microscopy NONE NRG Mucus detection in urine sediment by light microscopy NEGATIVE NRG Complete urinalysis with reflex to culture YES NRG Amorphous sediment detection in urine sediment by light microscopy FEW JENY URATES NRG Renal epithelial cells detection in urine sediment by light microscopy RARE NRG Bacterial urine culture - 09/26/18 12:34 Bacterial urine culture NG NRG Bacterial blood culture - 09/26/18 12:55 Bacterial blood culture NG NRG Serum or plasma troponin i.cardiac measurement (mass/volume) - 09/26/18 17:53 Serum or plasma troponin i.cardiac measurement (mass/volume) < ng/mL <0.028 Serum or plasma troponin i.cardiac measurement (mass/volume) - 09/26/18 23:59 Serum or plasma troponin i.cardiac measurement (mass/volume) < ng/mL <0.028 Complete blood count (CBC) with automated white blood cell (WBC) differential - 09/27/18 04:55 Blood leukocytes automated count (number/volume) 5.9 10*3/uL 4.3-11.0 Blood erythrocytes automated count (number/volume) 3.73 10*6/uL 4.35-5.85 Venous blood hemoglobin measurement (mass/volume) 11.6 g/dL 11.5-16.0 Blood hematocrit (volume fraction) 36 % 35-52 Automated erythrocyte mean corpuscular volume 95 [foz_us] 80-99 Automated erythrocyte mean corpuscular hemoglobin (mass per erythrocyte) 31 pg 25-34 Automated erythrocyte mean corpuscular hemoglobin concentration measurement (mass/volume) 33 g/dL 32-36 Automated erythrocyte distribution width ratio 15.0 % 10.0- 14.5 Automated blood platelet count (count/volume) 168 10*3/uL 130-400 Automated blood platelet mean volume measurement 10.6 [foz_us] 7.4-10.4 Automated blood neutrophils/100 leukocytes 85 % 42-75 Automated blood lymphocytes/100 leukocytes 6 % 12-44 Blood monocytes/100 leukocytes 7 % 0-12 Automated blood eosinophils/100 leukocytes 1 % 0-10 Automated blood basophils/100 leukocytes 1 % 0-10 Blood neutrophils automated count (number/volume) 5.0 10*3 1.8-7.8 Blood lymphocytes automated count (number/volume) 0.4 10*3 1.0-4.0 Blood monocytes automated count (number/volume) 0.4 10*3 0.0- 1.0 Automated eosinophil count 0.1 10*3/uL 0.0-0.3 Automated blood basophil count (count/volume) 0.0 10*3/uL 0.0-0.1 Comprehensive metabolic panel - 09/27/18 05:10 Serum or plasma sodium measurement (moles/volume) 144 mmol/L 135-145 Serum or plasma potassium measurement (moles/volume) 3.4 mmol/L 3.6-5.0 Serum or plasma chloride measurement (moles/volume) 115 mmol/L 98-107 Carbon dioxide 18 mmol/L 21-32 Serum or plasma anion gap determination (moles/volume) 11 mmol/L 5-14 Serum or plasma urea nitrogen measurement (mass/volume) 52 mg/dL 7-18 Serum or plasma creatinine measurement (mass/volume) 1.23 mg/dL 0.60-1.30 Serum or plasma urea nitrogen/creatinine mass ratio 42 NRG Serum or plasma creatinine measurement with calculation of estimated glomerular filtration rate 42 NRG Serum or plasma glucose measurement (mass/volume) 90 mg/dL 70-105 Serum or plasma calcium measurement (mass/volume) 7.8 mg/dL 8.5-10.1 Serum or plasma total bilirubin measurement (mass/volume) 0.2 mg/dL 0.1-1.0 Serum or plasma alkaline phosphatase measurement (enzymatic activity/volume) 123 U/L 40-136 Serum or plasma aspartate aminotransferase measurement (enzymatic activity/volume) 24 U/L 5-34 Serum or plasma alanine aminotransferase measurement (enzymatic activity/volume) 32 U/L 0-55 Serum or plasma protein measurement (mass/volume) 5.7 g/dL 6.4-8.2 Serum or plasma albumin measurement (mass/volume) 2.4 g/dL 3.2-4.5 CALCIUM CORRECTED 9.1 mg/dL 8.5-10.1 Serum or plasma troponin i.cardiac measurement (mass/volume) - 09/27/18 05:10 Serum or plasma troponin i.cardiac measurement (mass/volume) < ng/mL <0.028 Serum or plasma troponin i.cardiac measurement (mass/volume) - 09/27/18 12:55 Serum or plasma troponin i.cardiac measurement (mass/volume) < ng/mL <0.028 Capillary blood glucose measurement by glucometer (mass/volume) - 09/27/18 15:02 Capillary blood glucose measurement by glucometer (mass/volume) 84 mg/dL 70-110 Encounters ACCT No. Visit Date/Time Discharge Status Pt. Type Provider Facility Loc./Unit Complaint [id number] 09/21/2018 17:45:00 09/21/2018 23:59:59 CLS Outpatient MARK WANG [facility] [id number] 09/21/2018 17:45:00 Document Registration [id number] 09/02/2018 17:45:00 Document Registration [id number] 10/01/2018 20:01:47 ACT Unknown Brandy MONROE, Maia [id number] 09/26/2018 13:52:00 09/28/2018 17:00:00 DIS Inpatient MADDISON MONROE, CRYSTAL Ballard [facility] 4TH UTI, PT HASNT BEEN EATING OR DRINKING [id number] 02/25/2018 22:55:00 02/26/2018 15:37:00 DIS Inpatient CANNON DO, CASPER [facility] 4TH ALTERED MENTAL STATUS [id number] 09/22/2017 08:19:00 09/22/2017 23:59:59 CLS Preadmit MAIA RASMUSSEN MD [facility] RAD PNEUMONIA J18.9 [id number] 07/24/2017 09:36:00 07/24/2017 23:59:59 CLS Outpatient VERONICA GO APRN [facility] RAD RT PULMONARY NODULE [id number] 07/10/2017 13:19:00 07/11/2017 16:05:00 DIS Inpatient CANNON DO, CASPER [facility] 4TH BILAT PNA
--- NOTE | 2018-10-04 22:41 | ED Fall/Injury ---
General Chief Complaint: Lower Extremity Stated Complaint: RT KNEE PAIN Source: patient, EMS, [facility] records Exam Limitations: clinical condition (history of dementia) History of Present Illness Date Seen by Provider: October 04, 2018 Time Seen by Provider: 22:30 Initial Comments Patient presents from the memory care unit for by EMS with chief complaint of fall unwitnessed. She struck the right frontal scalp of her head against the floor. She denies loss of consciousness. She says usually ambulates without assistance. She is having some pain in her right hip. She is not on a blood th inner per [facility] records. She recently was on antibiotics for a UTI. She denies, discharge, cough shortness of breath or chest pain, Dysuria, fevers chills Allergies and Home Medications Allergies Coded Allergies: No Known Drug Allergies (Unverified , 02/25/18) Home Medications Dextran 70/Hypromellose 15 Ml Drops, 1 DROP OU 08,10,12,14,16,18,20 PRN for DRY EYES, (Reported) Dextran 70/Hypromellose 15 Ml Drops, 1 DROP OU TID, (Reported) Ibuprofen 400 Mg Tablet, 400 MG PO Q8H PRN for PAIN-MILD, (Reported) Mirtazapine 15 Mg Tablet, 15 MG PO HS, (Reported) Jose/Polymyx B Sulf/Dexameth 3.5 Gm Oint...g., OU BID, (Reported) APPLY 1/4 INCH RIBBON INTO UPPER EYELID Risperidone 1 Mg Tablet, 1 MG PO TID, (Reported) Selenium Sulfide/Aloe Vera 207 Ml Shampoo, TOP MoFr, (Reported) Trazodone HCl 50 Mg Tablet, 50 MG PO HS, (Reported) Patient Home Medication List Home Medication List Reviewed: Yes Review of Systems Review of Systems Constitutional: No chills, No diaphoresis Eyes: Blindness (chronic right ankle); Denies Blurred Vision Ears, Nose, Mouth, Throat: denies ear pain, denies ear discharge, denies nose discharge, denies epistaxis Respiratory: No cough, No phlegm, No short of breath Cardiovascular: No chest pain, No edema Gastrointestinal: No abdominal pain, No nausea Genitourinary: No discharge, No dysuria Musculoskeletal: see HPI, joint pain (right hip) Past Zxhxogw-Qmnhyw-Yebwnd Hx Patient Social History Alcohol Use: Denies Use Recreational Drug Use: No Smoking Status: Never a Smoker 2nd Hand Smoke Exposure: No Recent Foreign Travel: No Contact w/Someone Who Travel: No Recent Hopitalizations: No Immunizations Up To Date Date of Pneumonia Vaccine: Feb 09, 2017 Date of Influenza Vaccine: Feb 09, 2017 Seasonal Allergies Seasonal Allergies: Yes Past Medical History Surgeries: Yes (RIGHT EYE SURGERY) Respiratory: No Cardiac: No (denies) Neurological: Yes (rt facial drooping; per pt "nerve damage") Paralysis, Stroke Genitourinary: No (denies) Gastrointestinal: No (denies) Musculoskeletal: Yes Arthritis Endocrine: No (denies) HEENT: Yes Chronic Eye Infection Loss of Vision: Right Hearing Impairment: Denies Cancer: No Psychosocial: Yes Suicide Attempts Integumentary: No Blood Disorders: No Family Medical History Patient reports no known family medical history. Physical Exam Vital Signs Vital Signs - First Documented 10/04/18 22:40 Temp 96.7 Pulse 91 Resp 18 B/P (MAP) 96/37 (56) Pulse Ox 98 O2 Delivery Nasal Cannula O2 Flow Rate 2.00 Capillary Refill : Height, Weight, BMI Height: 5'2.00" Weight: 106lbs. 1.0oz. 48.730187hc; 19.1 BMI Method:Stated General Appearance: no apparent distress, thin HEENT: normal ENT inspection, TMs normal, pharynx normal, other (minor abrasion right forehead, negative for hemotympanum. Negative for [place] sign or raccoon eyes. 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, blind chronically) Neck: non-tender, normal inspection Cardiovascular: normal peripheral pulses, regular rate, rhythm Respiratory: chest non-tender, lungs clear, normal breath sounds, no respiratory distress, no accessory muscle use Peripheral Pulses: 2+ Dorsalis Pedis (R), 2+ Left Dors-Pedis (L) Gastrointestinal: normal bowel sounds, non tender, soft Extremities: normal inspection, no pedal edema, normal capillary refill, other (tenderness in the right inguinal him and right hip) Neurologic/Psychiatric: alert, normal mood/affect, other (oriented to person and place) Skin: normal color, warm/dry, other (minor abrasion on the right forehead above the right eye) Belinda Coma Score Best Eye Response: (4) Open Spontaneously Best Verbal Response: (5) Oriented Best Motor Response: (6) Obeys Commands Belinda Total: 15 Progress/Results/Core Measures Results/Orders Lab Results Laboratory Tests Test 10/04/18 00:02 10/05/18 00:02 10/05/18 01:15 Range/Units White Blood Count 14.2 H 4.3-11.0 10^3/uL Red Blood Count 3.97 L 4.35-5.85 10^6/uL Hemoglobin 12.3 11.5-16.0 G/DL Hematocrit 38 35-52 % Mean Corpuscular Volume 97 80-99 FL Mean Corpuscular Hemoglobin 31 25-34 PG Mean Corpuscular Hemoglobin Concent 32 32-36 G/DL Red Cell Distribution Width 14.8 H 10.0-14.5 % Platelet Count 173 130-400 10^3/uL Mean Platelet Volume 10.9 H 7.4-10.4 FL Neutrophils (%) (Auto) 95 H 42-75 % Lymphocytes (%) (Auto) 3 L 12-44 % Monocytes (%) (Auto) 2 0-12 % Eosinophils (%) (Auto) 0 0-10 % Basophils (%) (Auto) 0 0-10 % Neutrophils # (Auto) 13.4 H 1.8-7.8 X 10^3 Lymphocytes # (Auto) 0.4 L 1.0-4.0 X 10^3 Monocytes # (Auto) 0.3 0.0-1.0 X 10^3 Eosinophils # (Auto) 0.0 0.0-0.3 10^3/uL Basophils # (Auto) 0.0 0.0-0.1 10^3/uL Neutrophils % (Manual) 89 % Lymphocytes % (Manual) 4 % Monocytes % (Manual) 1 % Eosinophils % (Manual) 0 % Basophils % (Manual) 0 % Band Neutrophils 6 % Sodium Level 146 H 135-145 MMOL/L Potassium Level 3.1 L 3.6-5.0 MMOL/L Chloride Level 102 98-107 MMOL/L Carbon Dioxide Level 28 21-32 MMOL/L Anion Gap 16 H 5-14 MMOL/L Blood Urea Nitrogen 14 7-18 MG/DL Creatinine 0.93 0.60-1.30 MG/DL Estimat Glomerular Filtration Rate 58 BUN/Creatinine Ratio 15 Glucose Level 141 H 70-105 MG/DL Calcium Level 8.1 L 8.5-10.1 MG/DL Corrected Calcium 9.0 8.5-10.1 MG/DL Total Bilirubin 0.5 0.1-1.0 MG/DL Aspartate Amino Transf (AST/SGOT) 20 5-34 U/L Alanine Aminotransferase (ALT/SGPT) 19 0-55 U/L Alkaline Phosphatase 94 40-136 U/L Total Protein 6.5 6.4-8.2 GM/DL Albumin 2.9 L 3.2-4.5 GM/DL Magnesium Level 1.6 L 1.8-2.4 MG/DL Urine Color YELLOW Urine Clarity CLEAR Urine pH 6.0 5-9 Urine Specific [place] 1.015 L 1.016-1.022 Urine Protein TRACE NEGATIVE Urine Glucose (UA) NEGATIVE NEGATIVE Urine Ketones NEGATIVE NEGATIVE Urine Nitrite NEGATIVE NEGATIVE Urine Bilirubin NEGATIVE NEGATIVE Urine Urobilinogen 0.2 NORMAL MG/DL Urine Leukocyte Esterase TRACE H NEGATIVE Urine RBC (Auto) TRACE H NEGATIVE Urine RBC 0-2 /HPF Urine WBC 10-25 H /HPF Urine Squamous Epithelial Cells 0-2 /HPF Urine Crystals PRESENT H /LPF Urine Amorphous Sediment FEW JENY URATES H /LPF Urine Bacteria FEW H /HPF Urine Casts PRESENT /LPF Urine Hyaline Casts 0-2 H /LPF Urine Mucus NONE /LPF Urine Culture Indicated YES My Orders Orders - SAURABH MATAMOROS Ct Head/Cervical Spine Wo (10/04/18 22:38) Pelvis With Right Hip 2-3 View (10/04/18 22:38) Chest 1 View Ap/Pa Only (10/04/18 22:38) Cbc With Automated Diff (10/04/18 23:45) Comprehensive Metabolic Panel (10/04/18 23:45) Ed Iv/Invasive Line Start (10/04/18 23:45) Ns Iv 500 Ml (Sodium Chloride 0.9%) (10/04/18 23:45) Ekg Tracing (10/04/18 23:49) Manual Differential (10/04/18 00:02) Ua Culture If Indicated (10/05/18 00:31) Catheter(Urinary) Insert & Ass 15 (10/05/18 00:31) Potassium Cl 10meq/50ml Ivpb (Kcl 10 Meq (10/05/18 01:00) Magnesium (10/05/18 00:50) Lactated Ringers (Lr 1000 Ml Iv Solution (10/05/18 01:30) Urine Culture (10/05/18 01:15) Magnesium 1 Gm/100 Ml Ivpb (Magnesium Jacques (10/05/18 01:45) Ceftriaxone For Iv Use (Rocephin For I (10/05/18 01:45) Ed Iv/Invasive Line Start (10/05/18 01:38) Ns Iv 500 Ml (Sodium Chloride 0.9%) (10/05/18 01:38) Medications Given in ED Current Medications Medications Dose Ordered Sig/Natan Route Start Time Stop Time Status Last Admin Dose Admin Ceftriaxone Sodium 1000 mg/ Sterile Water 10 ml @ 200 mls/hr ONCE ONCE IV 10/05/18 01:45 10/05/18 01:47 DC 10/05/18 01:40 200 MLS/HR Lactated Ringer's 1,000 ml @ 100 mls/hr Q10H ONCE IV 10/05/18 01:30 10/05/18 11:29 10/05/18 01:26 100 MLS/HR Magnesium Sulfate/ Dextrose 100 ml @ 100 mls/hr ONCE ONCE IV 10/05/18 01:45 10/05/18 02:44 DC 10/05/18 02:31 100 MLS/HR Potassium Chloride 50 ml @ 50 mls/hr ONCE ONCE IV 10/05/18 01:00 10/05/18 01:59 DC 10/05/18 01:26 50 MLS/HR Sodium Chloride 500 ml @ 0 mls/hr Q0M ONCE IV 10/04/18 23:45 10/04/18 23:46 DC 10/05/18 00:30 999 MLS/HR Sodium Chloride 500 ml @ 0 mls/hr Q0M ONCE IV 10/05/18 01:38 10/05/18 01:39 DC 10/05/18 01:52 0 MLS/HR Vital Signs/I&O 10/04/18 10/05/18 22:40 03:55 Temp 96.7 Pulse 91 82 Resp 18 16 B/P (MAP) 96/37 (56) 91/69 (76) Pulse Ox 98 99 O2 Delivery Nasal Cannula Nasal Cannula O2 Flow Rate 2.00 2.00 Progress Progress Note #1: Time: 00:34 Progress Note X-ray demonstrates a right femoral neck fracture closed nondisplaced. Chest x- ray shows chronic findings. We'll get a Lopez catheter put in her check some urine and basic labs. [facility] is on house wide diversion. We'll get her set up to do an ER to ER transfer for a trauma, fall to [place] ER. As long as she is lying still she declines anything for pain. We have ordered a 500 cc fluid bolus and nothing by mouth. Progress Note #2: Time: 01:35 Progress Note The patient's blood pressure at baseline runs in the 90-100 systolic range. She is not having any symptoms of dysuria per history. She had stated [facility] a few weeks ago and at that time they thought she might have a UTI give her antibiotics and fluids and her urine cultures never grew any bacteria out. She has similar urinary findings on urinalysis today after were able to obtain a specimen. She is not particularly tachycardic with a heart rate is 92. She has no fever. White count is elevated which could be attributed to her fall and fracture. We are going to cover her with an antibiotic Rocephin because her urinalysis could be consistent with a bladder infection. Her blood pressures re main soft after a half liter bolus over any give her a full 20 mL/kg bolus and keep some LR running in the 100 cc an hour. We've addressed her mildly out of range potassium and magnesium. Were trying to be gentle with our fluid boluses and not push her into pulmonary edema as and not completely convinced that this is international sales representative of an infection or sepsis given her chronic low blood pressure. Progress Note #3: Time: 02:13 Progress Note We have been giving him a fluid bolus and attempt to get the patient's blood pressure to improve. We will discuss with her the possibility of doing a central line in and possible pressors. She is alert, talking and is a heart rate in the low 80s which is not consistent with someone in septic shock. When we wake her up or less with her her blood pressure improves to a little over 100 systolic. We have made attempts to contact the next of kin listed as her primary contact and left a voicemail's but she has not called us back. care home staff also stated they were unable to get a hold of BRITTNEY. If her blood pressure does not improve after fluid bolus then the next step will be to discuss taking more invasive measures. We have attempted to have a discussion of goals of care and appropriateness of invasive central lines, ICU management and surgery with patient about while she is oriented to person and time of day she does not remember one conversation to the next. She is a DO NOT RESUSCITATE. We do not have any power of deputy attorney general paperwork for her. Progress Note #4: Time: 02:54 Progress Note The patient is conversational, watching TV and her blood pressure is significantly improved after the initial fluid bolus of 102/70 with a map of 78. I would consider her fluid responsive. Initial ECG Impression Date: October 05, 2018 Initial ECG Impression Time: 00:36 Initial ECG Rate: 86 Initial ECG Rhythm: Normal Sinus Initial ECG Intervals: Normal Initial ECG Impression: Normal, Nonspecific Changes Initial ECG Comparisson: Unchanged Comment Some tremor artifact but sinus rhythm with no significant ST elevation or depression. Diagnostic Imaging Diagonstic Imaging: Xray Comments No acute cardiopulmonary process noted. Reviewed: Reviewed by Me Diagonstic Imaging: Xray Plain Films/CT/US/NM/MRI: hip (r) Comments Femoral neck fracture closed, nondisplaced Reviewed: Reviewed by Me Diagonstic Imaging: CT (noncontrast) Plain Films/CT/US/NM/MRI: c-spine, head Comments No acute findings of the head, C-spine. Reviewed: Reviewed [place] Study, Reviewed by Me Departure Impression Primary Impression: Fall Qualified Codes: W19.XXXA - Unspecified fall, initial encounter Additional Impressions: Closed right hip fracture Qualified Codes: S72.001A - Fracture of unspecified part of neck of right femur, initial encounter for closed fracture Abrasion of forehead Qualified Codes: S00.81XA - Abrasion of other part of head, initial encounter UTI (urinary tract infection) Qualified Codes: N30.00 - Acute cystitis without hematuria Disposition: XFER SHT-TRM HOSP Condition: Stable Transfer Time Spoke to Accepting Phy: 23:45 Transfer Progress Notes Discussed the case with ER doctor Dr. Boss and she accepts the patient ER to ER. The patient is stable and there are 2 priority patient's to transfer before her. Transfer Time: 04:05 Transfer Facility: [place], [place] emergency room. Method of Transfer: EMS Departure-Patient Inst. Referrals: MAIA RASMUSSEN MD (PCP/Family) Primary Care Physician SAURABH MATAMOROS October 04, 2018 22:41
[2018-10-04] MEDS ORDERED: NS IV 500 ML 500 ML IV ONE (23:45)
[2018-10-05 00:12] LABS: WHITE BLOOD COUNT 14.2 10^3/uL (4.3-11.0)
[2018-10-05 00:13] LABS: HEMATOCRIT 38 % (35-52); HEMOGLOBIN 12.3 G/DL (11.5-16.0); MEAN CORPUSCULAR HEMOGLOBIN 31 PG (25-34); MEAN CORPUSCULAR HGB CONC 32 G/DL (32-36); MEAN CORPUSCULAR VOLUME 97 FL (80-99); MEAN PLATELET VOLUME 10.9 FL (7.4-10.4); PLATELET COUNT 173 10^3/uL (130-400); RED CELL DISTRIBUTION WIDTH 14.8 % (10.0-14.5)
[2018-10-05 00:14] LABS: BASOPHILS % (AUTO) 0 % (0-10); EOSINOPHILS % (AUTO) 0 % (0-10); LYMPHOCYTES # (AUTO) 0.4 X 10^3 (1.0-4.0); LYMPHOCYTES % (AUTO) 3 % (12-44); MONOCYTES # (AUTO) 0.3 X 10^3 (0.0-1.0); MONOCYTES % (AUTO) 2 % (0-12); NEUTROPHILS # (AUTO) 13.4 X 10^3 (1.8-7.8); NEUTROPHILS % (AUTO) 95 % (42-75)
[2018-10-05 00:31] LABS: BAND NEUTROPHILS 6 %; NEUTROPHILS % (MANUAL) 89 %
[2018-10-05 00:32] LABS: BASOPHILS % (MANUAL) 0 %; EOSINOPHILS % (MANUAL) 0 %; LYMPHOCYTES % (MANUAL) 4 %; MONOCYTES % (MANUAL) 1 %; POTASSIUM 3.1 MMOL/L (3.6-5.0)
[2018-10-05 00:33] LABS: ALBUMIN 2.9 GM/DL (3.2-4.5); BILIRUBIN,TOTAL 0.5 MG/DL (0.1-1.0); CALCIUM 8.1 MG/DL (8.5-10.1); CREATININE SERUM 0.93 MG/DL (0.60-1.30); TOTAL PROTEIN 6.5 GM/DL (6.4-8.2)
[2018-10-05] MEDS ORDERED: POTASSIUM CL 10MEQ/50ML IVPB 50 ML IV ONE (01:00)
[2018-10-05 01:29] LABS: CLARITY,URINE CLEAR; COLOR,URINE YELLOW; GLUCOSE, URINE (UA) NEGATIVE (NEGATIVE); PROTEIN,URINE TRACE (NEGATIVE)
[2018-10-05 01:30] LABS: AMORPHOUS SEDIMENT,UR FEW AMOR URATES /LPF; BACTERIA,URINE FEW /HPF; BILIRUBIN,URINE NEGATIVE (NEGATIVE); KETONES,URINE NEGATIVE (NEGATIVE); LEUKOCYTE ESTERASE ,URINE TRACE (NEGATIVE); NITRITE,URINE NEGATIVE (NEGATIVE); RBC,URINE 0-2 /HPF; SQUAMOUS EPITHELIAL CELL,UR 0-2 /HPF; UROBILINOGEN,URINE 0.2 MG/DL (NORMAL)
[2018-10-05] MEDS ORDERED: LACTATED RINGERS 1,000 ML IV ONE (01:30)
[2018-10-05 01:31] LABS: HYALINE CASTS, URINE 0-2 /LPF
[2018-10-05] MEDS ORDERED: NS IV 500 ML 500 ML IV ONE (01:38)
[2018-10-05] MEDS ORDERED: cefTRIAXone FOR IV USE 1,000 MG in WATER (STERILE) FOR INJECTION 10 ML IV ONE (01:45)
[2018-10-05] MEDS ORDERED: MAGNESIUM 1 GM/100 ML IVPB 100 ML IV ONE (01:45)
[2018-10-05 03:55] VITALS: BP 91/69
--- NOTE | 2018-10-05 03:55 | NUR ---
ems here for transport
--- NOTE | 2018-10-05 06:39 | Diagnostic Imaging Report ---
PROCEDURE: CT head and CT cervical spine without contrast. TECHNIQUE: Multiple contiguous axial images were obtained through the brain and cervical spine without the use of intravenous contrast. Sagittal and coronal reformations through the cervical spine were then performed. Auto Exposure Controls were utilized during the CT exam to meet ALARA standards for radiation dose reduction. INDICATION: Fall. Head CT compared with 02/25/2018. No prior cervical imaging. FINDINGS: CT head: Mild atrophy is stable. There is no hemorrhage and no acute extra-axial fluid collection. No mass effect, shift, edema or evidence for elevated pressures. Orbits and calvarium nonacute. There is opacification of the left maxillary sinus as a new finding. There is no mastoid effusion. There is opacification of the left frontal sinus and mild left-sided ethmoid air cell membrane thickening. CT cervical spine: Cervical body heights are maintained. There are degenerative changes, most severe at the C6-C7 level where there is slight grade 1 anterolisthesis and lower cervical facet arthrosis. No fracture. No paravertebral hemorrhage. No dislocation. Severe biapical pleural-parenchymal scarring, COPD and thickening similar to its visualized portions during chest CT of 07/24/2017. There does appear to be at least a small right apical pleural effusion having become apparent. No posttraumatic sequelae evident. IMPRESSION: CT head: Paranasal sinusitis as a new finding. Background atrophy stable. No acute brain abnormality. CT cervical spine: 1. Degenerative changes to the discs, endplates and facets with slight lower cervical listhesis. No fracture or dislocation. No acute-appearing abnormality. 2. Severe apical lung disease and pleural parenchymal thickening, scarring and at least small right apical pleural effusion. Dictated by: Dictated on workstation # [id number]
--- NOTE | 2018-10-05 07:02 | Diagnostic Imaging Report ---
Indication: Fall, shortness of breath Findings: Biapical pleural-parenchymal scarring showed no real change. Severe COPD chronic. There are small pleural effusions at the costophrenic angles as a new finding. Interstitial opacities while present as a chronic finding have increased in the mid to lower lungs. The change itself raises the question of mild edema. Impression: New basilar small effusions progressive interstitial opacity suspicious for edema. The biapical densities are unchanged. There is no pneumothorax and no appreciable fracture deformity. Dictated by: Dictated on workstation # [id number]
--- NOTE | 2018-10-05 07:10 | Diagnostic Imaging Report ---
INDICATION: Fall with hip pain. FINDINGS: AP pelvis with two-view right hip performed. Fracture of the subcapital femoral neck is present with mild displacement laterally and anteriorly of the distal fragment. No dislocation of the head. The obturator ring and acetabulum intact. No symphyseal or SI joint diastases. The contralateral left pelvic structures appeared normal. IMPRESSION: Mildly displaced right femoral neck fracture. Dictated by: Dictated on workstation # [id number]
== END 2018-10-05 03:55 | disposition short-term general hospital (02) ==
LOC: EDUNIT# 22:30 → ER FS 22:31
DX: S72.001A Fracture of unspecified part of neck of right femur, initial encounter for closed fracture (principal); S00.81XA Abrasion of other part of head, initial encounter; N39.0 Urinary tract infection, site not specified; F03.90 Unspecified dementia, unspecified severity, without behavioral disturbance, psychotic disturbance, mood disturbance, and anxiety; R40.2142 Coma scale, eyes open, spontaneous, at arrival to emergency department; R40.2252 Coma scale, best verbal response, oriented, at arrival to emergency department; R40.2362 Coma scale, best motor response, obeys commands, at arrival to emergency department; Z91.5 Personal history of self-harm; Z86.73 Personal history of transient ischemic attack (TIA), and cerebral infarction without residual deficits; W19.XXXA Unspecified fall, initial encounter; W22.09XA Striking against other stationary object, initial encounter
CPT/HCPCS: 36415; 51702; 70450; 71045; 72125; 73502; 80053; 81000; 83735; 85007; 85027; 87088; 93005; 96361; 96365; 96367